=== PATIENT | male | born 1940 | race Caucasian/White ===

== ENCOUNTER 2017-01-09 08:40 | Inpatient (IN) | payer MEDICARE, MEDICAID ==
[2017-01-09 09:02] VITALS: BMI 36.3
--- NOTE | 2017-01-09 09:06 | C.PDOC ---
History Of Present Illness 76 yr old male brought in via BLS, presents to the ER intubated for respiratory distress. According to the EMS, patient was found his neighbor on the ground in respiratory distress and minimally responsive. EMS states patient had a gaze and right sided deficit. ROS unavailable due to intubation. Time Seen by Provider: 01/09/17 08:40 Chief Complaint (Nursing): Weakness/Neurological Deficit History Per: EMS History/Exam Limitations: other (Intubated) Onset/Duration Of Symptoms: Unknown Current Symptoms Are (Timing): Still Present Past Medical History Reviewed: Historical Data, Nursing Documentation, Vital Signs Vital Signs: Last Vital Signs Temp 98.5 F 01/09/17 10:20 Pulse 92 H 01/09/17 12:00 Resp 20 01/09/17 12:00 BP 104/66 01/09/17 11:43 Pulse Ox 100 01/09/17 12:00 - Catch Resources Procedures CATARAC PHACOEMULS/ASPIR (09/08/13) INSERT LENS AT CATAR EXT (09/08/13) PTERYGIUM EXCISION NEC (09/08/13) Family History: States: No Known Family Hx Review Of Systems Review Of Systems: ROS cannot be obtained secondary to pt's inabilty to answer questions. Physical Exam - Physical Exam Appears: Non-toxic Skin: Warm, Dry Head: Atraumatic, Normacephalic Eye(s): bilateral: Other (Pin point pupils. Non reactive. ) Throat: Other (Can not be assessed) Chest: Symmetrical, No Tenderness Cardiovascular: Rhythm Regular, No Murmur Respiratory: Normal Breath Sounds, No Rales, No Wheezing, Other (On ventilation ) Gastrointestinal/Abdominal: Bowel Sounds, Soft Extremity: No Deformity, Other ((+) Lower extremity edema, 1+) Neurological/Psych: No Response To Commands ED Course And Treatment - Laboratory Results Result Diagrams: 01/09/17 09:12 01/09/17 09:12 ECG: Interpreted By Me, Viewed By Me ECG Rhythm: Atrial Fibrillation ECG Interpretation: Abnormal Interpretation Of ECG: Atrial fibrillation with rapid ventricular response with premature ventricular. Left axis deviation. ST & T wave abnormality Rate From EC (BPM) O2 Sat by Pulse Oximetry: 100 (On ventilation) - Radiology CXR: Interpreted by Me, Viewed By Me CXR Interpretation: Yes: Cardiomegaly, Other (Calcified aortic valve. Chronic interstitial/pulmonary edema bilateral.) - CT Scan/US CT - Head Other Rad Studies (CT/US): Read By Radiologist, Radiology Report Reviewed CT/US Interpretation: PROCEDURE: CT HEAD WITHOUT CONTRAST. HISTORY: Code Stroke. COMPARISON: None available. TECHNIQUE: Axial computed tomography images were obtained through the head/brain without intravenous contrast. Radiation dose: Total exam DLP = 936 mGy-cm. This CT exam was performed using one or more of the following dose reduction techniques: Automated exposure control, adjustment of the mA and/or kV according to patient size, and/or use of iterative reconstruction technique. FINDINGS: HEMORRHAGE: Large 4.0 x 2.5 centimeter focus of acute intracranial hemorrhage seen centered within the left basal ganglia extending into the external capsule and insular region as well as superiorly and inferiorly at that level. Suggestion of minimal mass effect on the left lateral ventricle. No significant [id number] midline shift at this juncture. BRAIN: Scattered focal lucencies in the subcortical and periventricular white matter suggestive for chronic microvascular ischemic change. VENTRICLES: As above. CALVARIUM: Unremarkable. PARANASAL SINUSES: Mild mucosal thickening of the bilateral maxillary sinuses. MASTOID AIR CELLS: Unremarkable as visualized. No inflammatory changes. OTHER FINDINGS: Soft tissue swelling/contusion overlying the posterior right parietal cranium. IMPRESSION: Large 4.0 x 2.5 centimeter focus of acute intracranial hemorrhage seen centered within the left basal ganglia extending into the external capsule and insular region as well as superiorly and inferiorly at that level. Suggestion of minimal mass effect on the left lateral ventricle. No significant [id number] midline shift at this juncture. Scattered focal lucencies in the subcortical and periventricular white matter suggestive for chronic microvascular ischemic change. These findings were relayed to Dr. Shoaib Michael at 9:12 a.m. on 01/09/2017. Critical Care Time - Critical Care Note Total Time (in mins): 60 Documented critical care: time excludes all time spent performing seperately billable procedures. Medical Decision Making Medical Decision Making: PLAN: * CT - Head * CXR * EKG * Troponin * ABG * CBC * Urinalysis * Profofol IV * Cardene IV PROGRESS: * 0840 - Patient arrived to the ED intubated. * 0846 - BP: 210/125. HR: 110. RECTAL TEMP: 99.4. * 0850 - Code Stroke was called overhead. * 0853 - Patient went up for CAT scan. * 0918 - BP: 215/122. * 0920 - Spoke to Neurosurgeon Dr. Palmer regarding the patient who states no intervention from surgery needed for the case. * 0922 - Spoke to Neurologist Dr. Segura regarding the patient. Agrees with the current plan. * 0954 - BP: 127/85. HR: 104. * 1010 - Patient went up to ICU. NOTE: * Patient was found 0816 by the EMS. * Spoke to the settlement technician Dr. Arnaldo Demarco and Dr. Tam Xiong regarding the patient. Disposition - Disposition Disposition Time: 09:30 Condition: CRITICAL - Clinical Impression Clinical Impression: Intraparenchymal hemorrhage of brain - Scribe Statement The provider has reviewed the documentation as recorded by the [place] Provider Attestation: All medical record entries made by the [place] were at my direction and personally dictated by me. I have reviewed the chart and agree that the record accurately reflects my personal performance of the history, physical exam, medical decision making, and the department course for this patient. I have also personally directed, reviewed, and agree with the discharge instructions and disposition.
[2017-01-09 09:19] LABS: BASO # 0.1 K/uL (0.0-0.2); EOS % 0.1 % (0.0-4.0); HEMATOCRIT 39.8 % (35.0-51.0); LYMPH # 0.6 K/uL (1.0-4.3); LYMPH % 4.1 % (20.0-40.0); MEAN CELL VOLUME 89.2 fL (80.0-94.0); MEAN CORPUSCULAR HEMOGLOBIN 28.1 pg (27.0-31.0); MEAN CORPUSCULAR HGB CONC 31.5 g/dL (33.0-37.0); MEAN PLATELET VOLUME 9.9 fL (7.2-11.7); MONO # 1.2 K/uL (0.0-0.8); MONO % 8.4 % (0.0-10.0); PLATELET COUNT 193 K/uL (130-400); RED CELL DISTRIBUTION WIDTH 14.2 % (11.5-14.5); WHITE BLOOD COUNT 14.5 K/uL (4.8-10.8)
--- NOTE | 2017-01-09 09:21 | CT ---
PROCEDURE: CT HEAD WITHOUT CONTRAST. HISTORY: Code Stroke COMPARISON: None available. TECHNIQUE: Axial computed tomography images were obtained through the head/brain without intravenous contrast. Radiation dose: Total exam DLP = 936 mGy-cm. This CT exam was performed using one or more of the following dose reduction techniques: Automated exposure control, adjustment of the mA and/or kV according to patient size, and/or use of iterative reconstruction technique. FINDINGS: HEMORRHAGE: Large 4.0 x 2.5 centimeter focus of acute intracranial hemorrhage seen centered within the left basal ganglia extending into the external capsule and insular region as well as superiorly and inferiorly at that level. Suggestion of minimal mass effect on the left lateral ventricle. No significant [id number] midline shift at this juncture. BRAIN: Scattered focal lucencies in the subcortical and periventricular white matter suggestive for chronic microvascular ischemic change. VENTRICLES: As above. CALVARIUM: Unremarkable. PARANASAL SINUSES: Mild mucosal thickening of the bilateral maxillary sinuses. MASTOID AIR CELLS: Unremarkable as visualized. No inflammatory changes. OTHER FINDINGS: Soft tissue swelling/contusion overlying the posterior right parietal cranium. IMPRESSION: Large 4.0 x 2.5 centimeter focus of acute intracranial hemorrhage seen centered within the left basal ganglia extending into the external capsule and insular region as well as superiorly and inferiorly at that level. Suggestion of minimal mass effect on the left lateral ventricle. No significant [id number]-[id number] midline shift at this juncture. Scattered focal lucencies in the subcortical and periventricular white matter suggestive for chronic microvascular ischemic change. These findings were relayed to Dr. Shoaib Michael at 9:12 a.m. on 01/09/2017.
[2017-01-09] MEDS ORDERED: Propofol 10 mg/ml Inj (100 ml) IV SCH ×2 (09:30→10:00)
[2017-01-09 09:35] LABS: ABG ALLEN TEST POS; ABG MECHANICAL RATE 16; DRAW SITE RRA
[2017-01-09 09:37] LABS: CHLORIDE 101 mmol/L (98-107); POTASSIUM 3.6 mmol/L (3.6-5.2); SODIUM 139 mmol/L (132-148)
[2017-01-09 09:39] LABS: BILIRUBIN,TOTAL 0.9 mg/dL (0.2-1.3); CARBON DIOXIDE 22 mmol/L (22-30); CHOLESTEROL 140 mg/dL (0-199); GFR AFRICAN-AMERICAN > 60
[2017-01-09 09:40] LABS: ALB/GLOB RATIO 1.1 (1.0-2.1); ALKALINE PHOSPHATASE 102 U/L (38-126); ALT/SGPT 19 U/L (21-72); AST/SGOT 39 U/L (17-59); BLOOD UREA NITROGEN 14 mg/dL (9-20); CALCIUM 9.1 mg/dl (8.6-10.4); GLUCOSE,RANDOM 125 mg/dL (75-110); TOTAL PROTEIN 7.7 g/dL (6.3-8.3)
[2017-01-09 09:42] LABS: INR 1.1
[2017-01-09 09:45] LABS: LARGE PLATELETS PRESENT; NEUTROPHIL 88 % (50-75); TOTAL CELLS COUNTED 100
[2017-01-09] MEDS: niCARdipine IV 25 MG in Sodium Chloride 0.9% 240 ML IV SCH ×3 (10:09→19:58)
[2017-01-09 10:41] LABS: URINE BACTERIA RARE (<OCC); URINE BILIRUBIN NEGATIVE (NEGATIVE); URINE BLOOD 2+ (NEGATIVE); URINE COLOR Straw (YELLOW); URINE GLUCOSE (UA) NORMAL (Normal); URINE KETONE NEGATIVE (NEGATIVE); URINE LEUKOCYTE ESTERASE NEG Leu/uL (Negative); URINE PROTEIN 2+ mg/dL (NEGATIVE); URINE UROBILINOGEN NORMAL mg/dL (0.2-1.0); WBC URINE 2 /hpf (0-5)
[2017-01-09] MEDS ORDERED: Propofol 10 mg/ml Inj (20 ML) IV STA (10:42)
[2017-01-09 10:46] LABS: RBC URINE 3 /hpf (0-3)
--- NOTE | 2017-01-09 10:56 | CP.PCM.CON ---
History of Present Illness - History of Present Illness History of Present Illness: Mr. Duffy is a 76-year-old man with a past medical history of atrial fibrillation (on Xarelto), who was last known well last night, but found this morning by his neighbor with right side weakness and respiratory distress. EMS was called and the patient was intubated in the field. CT of the head was done in the ED and showed a moderate sized left basal ganglia intraparenchymal hemorrhage. The patient was sedated and intubated when I examined him, and he could not provide any more history. However, some information was obtained from the chart, EMS and nursing. There were no family members present or listed on file. Review of Systems - Review of Systems All systems: reviewed and no additional remarkable complaints except Past Patient History - Past Social History Smoking Status: Unknown If Ever Smoked - PSYCHIATRIC Hx Substance Use: No Meds Allergies/Adverse Reactions: Allergies Allergy/AdvReac Type Severity Reaction Status Date / Time No Known Allergies Allergy Verified 08/11/13 08:26 - Medications Medications: Current Medications Nicardipine HCl 25 mg/ Sodium (Chloride) 250 mls @ 50 mls/hr IV .Q5H HERMILO; 5 MG/ HR PRN Reason: Protocol Last Admin: 01/09/17 10:09 Dose: Not Given Propofol (Diprivan) 100 mls @ 3.06 mls/hr IV .Q24H PRN; Protocol; 5 MCG/KG/MIN PRN Reason: TITRATE PER MD ORDER Last Admin: 01/09/17 10:50 Dose: 3.06 mls/hr Physical Exam - Constitutional Appears: In Acute Distress Additional comments: Intubated, sedated, breathing on his own. - Eye Exam Eye Exam: Conjunctival injection Pupil Exam: Miosis - ENT Exam ENT Exam: Normal Exam - Neck Exam Neck exam: Positive for: Normal Inspection - Respiratory Exam Respiratory Exam: Decreased Breath Sounds, Respiratory Distress - Cardiovascular Exam Cardiovascular Exam: Irregular Rhythm, +S1, +S2 - Neurological Exam Additional comments: Brainstem reflexes are intact with sluggishly responsive pupils after sedation. Right side hemiplegic, but moves the left side to pain. Upgoing plantar response on the right, and downgoing on the left. Reflexes are brisk on the right and muted on the left. - Skin Skin Exam: Dry, Intact, Normal Color, Warm Results - Vital Signs Recent Vital Signs: Last Vital Signs Temp 99.4 F 01/09/17 08:40 Pulse 112 H 01/09/17 08:40 Resp 20 01/09/17 08:40 BP 210/125 H 01/09/17 08:40 Pulse Ox 100 01/09/17 08:40 - Labs Result Diagrams: 01/09/17 09:12 01/09/17 09:12 Labs: Laboratory Results - last 24 hr 01/09/17 10:04 Urine Color Straw Urine Clarity Clear Urine pH 5.0 Ur Specific [place] 1.006 Urine Protein 2+ H Urine Glucose (UA) Normal Urine Ketones Negative Urine Blood 2+ H Urine Nitrate Negative Urine Bilirubin Negative Urine Urobilinogen Normal Ur Leukocyte Esterase Neg Urine WBC (Auto) 2 Urine RBC (Auto) 3 Ur Squamous Epith Cells < 1 Urine Bacteria Rare - Imaging and Cardiology CT scan - head Status: Image reviewed by me, Report reviewed by me (left basal ganglia intraparenchymal hemorrhage without significant edema or midline shift.) Assessment & Plan (1) Intraparenchymal hemorrhage of brain Assessment and Plan: Likely hypertensive in etiology with worsening due to being on anticoagulation. I recommend the followin. Start cardene drip to maintain SBP between 110 and 160 mm Hg; 2. PCC to decrease bleeding; 3. Maintain head of bed above 30 degrees; 4. Neurosurgical consultation; 5. Repeat CT head in 6 hours; 6. Follow serum sodium and electrolytes every 12 hours; 7. MRI brain when stable; 8. Echocardiogram; 9. DVT Px. Status: Acute
--- NOTE | 2017-01-09 11:32 | RAD ---
HISTORY: patient intubated COMPARISON: No prior. FINDINGS: LUNGS: Endotracheal tube extending into the mid thoracic trachea. Moderate venous congestion. Patchy consolidative changes in the left suprahilar region and lung bases. PLEURA: As above. CARDIOVASCULAR: Cardiomegaly. Calcification at the aortic knob. OSSEOUS STRUCTURES: No significant abnormalities. VISUALIZED UPPER ABDOMEN: Normal. OTHER FINDINGS: None. IMPRESSION: Endotracheal tube extending into the mid thoracic trachea. Moderate venous congestion. Patchy consolidative changes in the left suprahilar region and lung bases.
--- NOTE | 2017-01-09 11:37 | CP.PCM.CON ---
<Damaso Ng - Last Filed: 01/09/17 15:08> History of Present Illness - History of Present Illness History of Present Illness: PGY-1 consult note for hogshead filler, Dr. Demarco Patient is a 76 year old male of [place] descent, with PMHx of atrial fibrillation (for which he takes Xarelto) and cataracts, who was brought to ED via BLS for respiratory distress and new onset of weakness on right side. Per EMS patient was found by a neighbor in respiratory distress and right sided weakness. Last known time pt was without symptoms was last night. EMS intubated in the field. Their report states 'patient had a gaze and right sided deficit.' CODE STROKE was initiated at time of arrival in the ED and CT head showed left basal ganglia hemorrhage. Neurologist, Dr. Segura, was notified and made recommendations regarding BP control, and repeat CT. Neurosurgeon, Dr. Palmer, indicated there was no role for him at this time. Pt is intubated and sedated and unable to provide ROS at this time. No family at bedside, thus patient's history was culled from EMR, EMS, and nursing. PMD: unknown PMHx: afib PSHx: Pterygium excision, cataracts (2012) SHx: unknown smoking/alcohol/illicit drug history FHx: unknown Allergies: NKA Review of Systems - Review of Systems Systems not reviewed;Unavailable: Altered Mental Status, Intubated Past Patient History - Past Social History Smoking Status: Unknown If Ever Smoked - MUSCULOSKELETAL/RHEUMATOLOGICAL Hx Falls: Yes - PSYCHIATRIC Hx Substance Use: No Meds Allergies/Adverse Reactions: Allergies Allergy/AdvReac Type Severity Reaction Status Date / Time No Known Allergies Allergy Verified 08/11/13 08:26 - Medications Medications: Current Medications Nicardipine HCl 25 mg/ Sodium (Chloride) 250 mls @ 50 mls/hr IV .Q5H HERMILO; 5 MG/ HR PRN Reason: Protocol Last Admin: 01/09/17 10:09 Dose: Not Given Propofol (Diprivan) 100 mls @ 3.06 mls/hr IV .Q24H PRN; Protocol; 5 MCG/KG/MIN PRN Reason: TITRATE PER MD ORDER Last Titration: 01/09/17 09:20 Dose: 10 mcg/kg/min Pneumococcal Polyvalent Vaccine (Pneumovax 23 Vaccine) 0.5 ml IM .ONCE ONE Stop: 01/11/17 11:06 Physical Exam - Head Exam Head Exam: ATRAUMATIC, NORMAL INSPECTION, NORMOCEPHALIC - Eye Exam Eye Exam: Conjunctival injection Pupil Exam: Fixed, Miosis - ENT Exam ENT Exam: Mucous Membranes Moist Additional comments: [place] tinged, thick endotracheal suction - Neck Exam Neck exam: Positive for: Normal Inspection Additional comments: no bruit appreciated - Respiratory Exam Respiratory Exam: Rhonchi Additional comments: on ventilation - Cardiovascular Exam Cardiovascular Exam: Irregular Rhythm, +S1, +S2. absent: Systolic Murmur - GI/Abdominal Exam GI & Abdominal Exam: Normal Bowel Sounds, Soft - Exam Additional comments: sanchez catheter in place - Extremities Exam Extremities exam: Positive for: pedal edema (1+ LE edema). Negative for: normal inspection Additional comments: Pt intubated and sedated. Not following commands at this time. Pt witnessed moving all extremities. Toes curled on both sides. - RUE weakness appreciated on flex/ext test - Back Exam Back exam: NORMAL INSPECTION - Neurological Exam Neurological exam: Alert, Oriented x3 - Skin Skin Exam: Normal Color, Warm Results - Vital Signs Recent Vital Signs: Last Vital Signs Temp 99.4 F 01/09/17 08:40 Pulse 112 H 01/09/17 08:40 Resp 23 01/09/17 10:50 BP 210/125 H 01/09/17 08:40 Pulse Ox 100 01/09/17 10:50 - Labs Result Diagrams: 01/09/17 09:12 01/09/17 09:12 Labs: Laboratory Results - last 24 hr 01/09/17 10:04 Urine Color Straw Urine Clarity Clear Urine pH 5.0 Ur Specific [place] 1.006 Urine Protein 2+ H Urine Glucose (UA) Normal Urine Ketones Negative Urine Blood 2+ H Urine Nitrate Negative Urine Bilirubin Negative Urine Urobilinogen Normal Ur Leukocyte Esterase Neg Urine WBC (Auto) 2 Urine RBC (Auto) 3 Ur Squamous Epith Cells < 1 Urine Bacteria Rare Assessment & Plan - Assessment and Plan (Free Text) Assessment: 76 year old male of [place] descent, with PMHx of afib (on xarelto), presenting with new onset weakness and respiratory distress. Pt intubated. CT scan shows left basal intraparenchymal bleed. Plan: Neuro: Pt intubated and sedated - Propofol ip CT Head (01/09/17): Left intraparenchymal hemorrhage without midline shift (see full report) - f/u repeat @ 1500 New onset weakness of right side Last time well was last night per neighbor Dr Segura, Neurology, consulted: help appreciated - Cardene drip to maintain SBP b/w 110-160 - PCC (Kcentra) to decrease bleeding on NOAC - head of bed to 30 degrees - f/u serum Na/electrolytes q12h - MRI/ECHO when stable Dr. Palmer, Neurosurgery, consulted: help appreciated - No intervention at this time Endo: Hgb A1c: 6.5 Accuchecks ACHS ISS - low CV: Hx of atrial fibrillation - EKG on presentation: Afib w. RVR (rate 108). Left axis deviation. - Hold Home med Xarelto 20mg Daily BP parameters (per Neurology reccs) - Systolic 110-160 - Cardene 25mg titrated for BP control Troponin negative x 1 f/u Digoxin level Home meds: - Digoxin 0.125 mg PO daily, Diltiazem 240mg PO Daily, Lasix 40mg PO daily Pulm: Pt intubated, breathing on own ABG: ph 7.27, pCO2 60, HCO3 24.5, Lactate 2.1 CXR (01/09): ETT extending into mid thoracic trachea. Moderate venous congestion. Patchy consolidative changes in left suprahilar region and lung bases (see full report) f/u procalcitonin GI: Intubated f/u swallow eval f/u Dietary reccs LFTs WNL : UA: 2+ protein, 2+ blood, negative LE, nitrate, ketones, bacteria rare, Sq Epithelial < 1 BUN/Cr WNL sanchez catheter in place Monitor I/Os ID: Leukocytosis - WBC 14.5, with left shift - Lactate 2.1 f/u procalcitonin f/u MRSA screen Hem/Onc: On home Xarelto - recommendation of neurology for PCC - Kcentra IV ONCE Leukocytosis 14.5 Mskltl: PT/OT eval Prophylaxis: DVT: SCDs VTE: contraindicated due to active BG bleed GI: Protonix IV <Arnaldo Demarco - Last Filed: 01/09/17 17:28> Meds - Medications Medications: Current Medications Nicardipine HCl 25 mg/ Sodium (Chloride) 250 mls @ 50 mls/hr IV .Q5H HERMILO; 5 MG/ HR PRN Reason: Protocol Last Admin: 01/09/17 14:48 Dose: Not Given Propofol (Diprivan) 100 mls @ 3.06 mls/hr IV .Q24H PRN; Protocol; 5 MCG/KG/MIN PRN Reason: TITRATE PER MD ORDER Last Admin: 01/09/17 12:05 Dose: 10 mls/hr Sodium Chloride (Sodium Chloride 0.9%) 1,000 mls @ 100 mls/hr IV .Q10H HERMILO Last Admin: 01/09/17 16:28 Dose: 100 mls/hr Insulin Human Regular (Novolin R) 0 unit SC Q6H HERMILO PRN Reason: Protocol Pantoprazole Sodium (Protonix Inj) 40 mg IVP DAILY HERMILO Last Admin: 01/09/17 13:34 Dose: 40 mg Pneumococcal Polyvalent Vaccine (Pneumovax 23 Vaccine) 0.5 ml IM .ONCE ONE Stop: 01/11/17 11:06 Results - Vital Signs Recent Vital Signs: Last Vital Signs Temp 97 F L 01/09/17 16:00 Pulse 80 01/09/17 16:00 Resp 16 01/09/17 16:00 BP 134/81 01/09/17 15:40 Pulse Ox 100 01/09/17 16:00 - Labs Result Diagrams: 01/09/17 09:12 01/09/17 09:12 Labs: Laboratory Results - last 24 hr 01/09/17 01/09/17 10:04 11:35 POC Glucose (mg/dL) 112 H Urine Color Straw Urine Clarity Clear Urine pH 5.0 Ur Specific [place] 1.006 Urine Protein 2+ H Urine Glucose (UA) Normal Urine Ketones Negative Urine Blood 2+ H Urine Nitrate Negative Urine Bilirubin Negative Urine Urobilinogen Normal Ur Leukocyte Esterase Neg Urine WBC (Auto) 2 Urine RBC (Auto) 3 Ur Squamous Epith Cells < 1 Urine Bacteria Rare Attending/Attestation - Attestation I have personally seen and examined this patient.: Yes I have fully participated in the care of the patient.: Yes I have reviewed all pertinent clinical information: Yes Notes (Text): 01/09/17 17:21 I have seen and examined the patient. Medical records, lab studies, and imaging were reviewed by me and a management plan was formulated on multidisciplinary rounds with resident Dr. Ng. I agree with their above documented assessment and plan. Patient was intubated for airway protection. Patient has left basal ganglia bleed, will monitor for increase, repeat head ct 6 hours. Control SBP 120-160. Patient's Xarelto coagulopathy reversed with PCC. Critical Care Time 35 minutes. Multi-disciplinary rounds were performed with house staff, nursing, speech therapy, respiratory therapy, pharmacy and nutrition with integrated input from the primary team/attending and other consulting services. The documented time is cumulative and includes review of patient data/exams/labs/chart review and examination of the patient on rounds and throughout the day; time is exclusive of any procedures or teaching time.
[2017-01-09] MEDS ORDERED: Hum Prothrombin CPLX(PCC)4FACT 1 Unit Inj IV ONE ×6 (13:00→14:30)
[2017-01-09] MEDS: Sodium Chloride 0.9% 1,000 ML IV SCH (16:28)
[2017-01-09] MEDS ORDERED: (Novolin R) Insulin Human Regular 100 units/ml vial SC SCH (16:30)
--- NOTE | 2017-01-09 17:02 | CT ---
PROCEDURE: CT HEAD WITHOUT CONTRAST. HISTORY: follow ICH COMPARISON: 01/09/2017 TECHNIQUE: Axial computed tomography images were obtained through the head/brain without intravenous contrast. Radiation dose: Total exam DLP = 1233 mGy-cm. This CT exam was performed using one or more of the following dose reduction techniques: Automated exposure control, adjustment of the mA and/or kV according to patient size, and/or use of iterative reconstruction technique. FINDINGS: HEMORRHAGE: The acute hemorrhage in the left thalamus and basal ganglia is stable in appearance. This measures 4 cm in length by 2.2 cm in maximal thickness. There is a small amount of edema sore in the hemorrhage. There is no extension into the ventricular system. There is no significant mass effect or midline shift BRAIN: As above VENTRICLES: Unremarkable. No hydrocephalus. CALVARIUM: Unremarkable. PARANASAL SINUSES: Unremarkable as visualized. No significant inflammatory changes. MASTOID AIR CELLS: Unremarkable as visualized. No inflammatory changes. OTHER FINDINGS: None. IMPRESSION: Stable appearance of acute hemorrhage in the left thalamus and basal ganglia
[2017-01-09] MEDS: (Novolin R) Insulin Human Regular 100 units/ml vial SC SCH (19:12)
[2017-01-09 19:34] LABS: CHLORIDE 100 mmol/L (98-107); POTASSIUM 3.6 mmol/L (3.6-5.2); SODIUM 138 mmol/L (132-148)
[2017-01-09 19:37] LABS: CARBON DIOXIDE 30 mmol/L (22-30); GFR AFRICAN-AMERICAN > 60
[2017-01-09 19:38] LABS: BLOOD UREA NITROGEN 17 mg/dL (9-20); CALCIUM 8.6 mg/dl (8.6-10.4); GLUCOSE,RANDOM 99 mg/dL (75-110)
[2017-01-10] MEDS: (Novolin R) Insulin Human Regular 100 units/ml vial SC SCH ×5 (00:45→23:51)
[2017-01-10] MEDS: Sodium Chloride 0.9% 1,000 ML IV SCH ×5 (00:45→20:00)
[2017-01-10] MEDS: niCARdipine IV 25 MG in Sodium Chloride 0.9% 240 ML IV SCH ×5 (00:45→20:00)
[2017-01-10] MEDS ORDERED: Acetaminophen 650mg/20.3ml solution UD PO STA (05:27)
[2017-01-10 05:40] LABS: ABG ALLEN TEST POS; ABG MECHANICAL RATE 16; ARTERIAL BLOOD HGB O2 SAT 95.2 % (95.0-98.0); ATERIAL BLOOD GAS PEEP 0; CARBOXYHEMOGLOBIN 1.7 % (0.5-1.5); DRAW SITE RR; HHB 1.8 % (0.0-5.0); METHEMOGLOBIN 1.2 % (0.0-3.0)
[2017-01-10 06:38] LABS: BASO # 0.1 K/uL (0.0-0.2); BASO % 0.7 % (0.0-2.0); EOS # 0.1 K/uL (0.0-0.7); EOS % 0.5 % (0.0-4.0); HEMATOCRIT 36.5 % (35.0-51.0); LYMPH # 0.5 K/uL (1.0-4.3); MEAN CELL VOLUME 88.5 fL (80.0-94.0); MEAN CORPUSCULAR HEMOGLOBIN 28.2 pg (27.0-31.0); MEAN CORPUSCULAR HGB CONC 31.9 g/dL (33.0-37.0); MEAN PLATELET VOLUME 10.2 fL (7.2-11.7); MONO # 1.1 K/uL (0.0-0.8); MONO % 8.6 % (0.0-10.0); NRBC % 0.1 % (0.0-2.0); PLATELET COUNT 169 K/uL (130-400); RED CELL DISTRIBUTION WIDTH 13.9 % (11.5-14.5); WHITE BLOOD COUNT 12.8 K/uL (4.8-10.8)
[2017-01-10 06:52] LABS: CHLORIDE 102 mmol/L (98-107); SODIUM 139 mmol/L (132-148)
[2017-01-10 06:53] LABS: POTASSIUM 3.9 mmol/L (3.6-5.2)
[2017-01-10 06:54] LABS: GFR AFRICAN-AMERICAN > 60
[2017-01-10 06:55] LABS: ALKALINE PHOSPHATASE 83 U/L (38-126); ALT/SGPT 27 U/L (21-72); AST/SGOT 33 U/L (17-59); BILIRUBIN,TOTAL 0.8 mg/dL (0.2-1.3); BLOOD UREA NITROGEN 19 mg/dL (9-20); CALCIUM 8.9 mg/dl (8.6-10.4); CARBON DIOXIDE 26 mmol/L (22-30); GLUCOSE,RANDOM 121 mg/dL (75-110); PHOSPHOROUS 2.7 mg/dL (2.5-4.5); TOTAL PROTEIN 6.7 g/dL (6.3-8.3)
[2017-01-10 06:56] LABS: MAGNESIUM 2.2 mg/dL (1.6-2.3)
[2017-01-10 08:20] LABS: EOSINOPHIL 1 % (0-4); NEUTROPHIL 84 % (50-75); TOTAL CELLS COUNTED 100
[2017-01-10 08:21] LABS: LARGE PLATELETS PRESENT
--- NOTE | 2017-01-10 09:28 | HP ---
The patient is a 76-year-old male brought to the hospital ____noticed the patient unconscious. The p atient came to the Emergency Room comatose. ____ pupils. The patient intubated with mechanical vent ilator ____ history of a large cerebral bleed. On admission ____, the patient's blood pressure was elevated 200/120. The patient cannot give any history. There is no family available to give any his tory. PHYSICAL EXAMINATION: GENERAL: The patient is comatose ____. VITAL SIGNS: ____. HEENT: ____. Pupils ____ nonreactive. NECK: Carotid ____ feels weak. CHEST: Symmetrical. HEART: Regular. ABDOMEN: Soft. EXTREMITIES: No edema. The patient suffers from cerebral bleed and hypertension. The patient will be admitted to ICU ____ b lood pressure is aggravated. The patient will need neurology consult. Neurosurgery was contacted an d said patient is not a surgical candidate. Poor prognosis. Tam Koroma MD cc: [id number] TT: 01/09/2017 10:49:25 mn
--- NOTE | 2017-01-10 09:32 | RAD ---
HISTORY: intubated COMPARISON: 01/09/2017 FINDINGS: LUNGS: Interval placement of a nasogastric tube with distal tip not well visualized. Other lines and tubes in stable position. Moderate venous congestion with bilateral hilar prominence. Bibasilar airspace opacities with bilateral pleural effusions. PLEURA: As above. CARDIOVASCULAR: Cardiomegaly. Calcification at the aortic knob. OSSEOUS STRUCTURES: No significant abnormalities. VISUALIZED UPPER ABDOMEN: Normal. OTHER FINDINGS: None. IMPRESSION: Interval placement of a nasogastric tube with distal tip not well visualized. Other lines and tubes in stable position. Moderate venous congestion with bilateral hilar prominence. Bibasilar airspace opacities with bilateral pleural effusions.
[2017-01-10 10:57] LABS: ABG ALLEN TEST POS; ABG MECHANICAL RATE 16; ARTERIAL BLOOD HGB O2 SAT 96.7 % (95.0-98.0); ATERIAL BLOOD GAS PEEP 5; CARBOXYHEMOGLOBIN 1.3 % (0.5-1.5); DRAW SITE RR; HHB 0.6 % (0.0-5.0); METHEMOGLOBIN 1.4 % (0.0-3.0)
--- NOTE | 2017-01-10 11:42 | CP.PCM.PN ---
Subjective - Date & Time of Evaluation Date of Evaluation: 01/10/17 Time of Evaluation: 10:30 - Subjective Subjective: Mr. Duffy was seen and examined today in the ICU. He is still intubated, but breathing well on his own and very active with movements. He appears to be quite agitated and resisting the ventilator at times. There were no acute events overnight. Objective - Vital Signs/Intake and Output Vital Signs (last 24 hours): Temp Pulse Resp BP Pulse Ox 99.3 F 118 H 33 H 137/106 H 98 01/10/17 07:47 01/10/17 11:02 01/10/17 11:02 01/10/17 11:02 01/10/17 11:02 Intake and Output: 01/10/17 01/10/17 06:59 18:59 Intake Total 1311.9 574.9 Output Total 0 795 Balance 1311.9 -220.1 - Medications Medications: Current Medications Nicardipine HCl 25 mg/ Sodium (Chloride) 250 mls @ 50 mls/hr IV .Q5H HERMILO; 5 MG/ HR PRN Reason: Protocol Last Titration: 01/10/17 11:25 Dose: 5 mg/hr Propofol (Diprivan) 100 mls @ 3.06 mls/hr IV .Q24H PRN; Protocol; 5 MCG/KG/MIN PRN Reason: TITRATE PER MD ORDER Last Titration: 01/10/17 09:24 Dose: 0 mcg/kg/min Sodium Chloride (Sodium Chloride 0.9%) 1,000 mls @ 100 mls/hr IV .Q10H HERMILO Last Admin: 01/10/17 04:05 Dose: 100 mls/hr Insulin Human Regular (Novolin R) 0 unit SC Q6H HERMILO PRN Reason: Protocol Last Admin: 01/10/17 06:29 Dose: Not Given Pantoprazole Sodium (Protonix Inj) 40 mg IVP DAILY HERMILO Last Admin: 01/10/17 09:26 Dose: 40 mg Pneumococcal Polyvalent Vaccine (Pneumovax 23 Vaccine) 0.5 ml IM .ONCE ONE Stop: 01/11/17 11:06 - Labs Labs: 01/10/17 06:29 01/10/17 06:29 PT 12.3 SECONDS (9.7-12.2) H 04/13/17 09:29 INR 1.1 01/09/17 09:29 APTT 31 SECONDS (21-34) 01/09/17 09:29 - Constitutional Appears: Agitated, Confused - Head Exam Head Exam: ATRAUMATIC, NORMAL INSPECTION, NORMOCEPHALIC - Eye Exam Eye Exam: EOMI, Normal appearance, PERRL - Respiratory Exam Respiratory Exam: Respiratory Distress Additional comments: Intubated, off sedation. - GI/Abdominal Exam GI & Abdominal Exam: Soft, Normal Bowel Sounds. absent: Tenderness - Neurological Exam Additional comments: Intubated, follows simple commands, moves the left side normally and has some movement of the RLE, but no movement of the RUE. He was difficult to examine due to a likely receptive aphasia and agitation due to the ventilator. Brainstem reflexes were all intact, he had a neglect of the right side. Assessment and Plan (1) Intraparenchymal hemorrhage of brain Assessment & Plan: Will repeat CT head today at 3PM to have a 24 hour follow-up. There is concern that the patient is at risk for ischemic stroke. We will consider starting aspirin if the CT continues to show good stability. The patient will likely be extubated today. Continue BP control, bed elevated to 30 degrees with aspiration precautions. I will continue following along with the primary team. Status: Acute
--- NOTE | 2017-01-10 12:00 | PN ---
DATE: 01/10/2017 The patient is on a ventilator. He is moving the left upper extremity. Seems to be somewhat more re sponsive than yesterday. At this point, continue sedation, continue support. Tam Koroma MD cc: [id number] TT: 01/10/2017 10:33:31 Confirmation # [id number] Dictation # [id number]
[2017-01-10] MEDS ORDERED: Digoxin 500 mcg/2ml (0.5 mg/2ml) Inj IVP ONE (12:35)
--- NOTE | 2017-01-10 12:40 | CP.CCUPN ---
<Damaso Ng - Last Filed: 01/10/17 12:41> CCU Subjective - Physician Review Subjective (Free Text): 01/10/17 12:39 Pt seen and examined at bedside. CCU Objective - Vital Signs / Intake & Output Vital Signs (Last 4 hours): Vital Signs Temp Pulse Resp BP Pulse Ox 01/10/17 12:14 110 H 19 100 01/10/17 12:00 100.3 F H 114 H 21 113/90 100 01/10/17 11:36 139 H 27 H 113/90 98 01/10/17 11:19 143 H 31 H 193/111 H 99 01/10/17 11:05 124 H 30 H 98 01/10/17 11:02 118 H 33 H 137/106 H 98 01/10/17 11:00 128 H 31 H 100 01/10/17 10:57 113 H 17 111/82 100 01/10/17 10:32 118 H 22 175/109 H 100 01/10/17 10:26 126 H 27 H 149/131 H 100 01/10/17 10:20 123 H 17 159/135 H 100 01/10/17 10:00 134 H 28 H 100 01/10/17 09:38 127 H 17 100 01/10/17 09:27 139/91 H 01/10/17 09:19 107 H 26 H 139/91 H 100 01/10/17 09:00 105 H 29 H 100 Intake and Output (Last 8hrs): Intake & Output 01/09/17 01/10/17 01/10/17 22:59 06:59 14:59 Intake Total 776.5 885.4 686.9 Output Total 150 1045 Balance 626.5 885.4 -358.1 Weight 218 lb 9 oz Intake: Intake, IV Amount 776.5 885.4 686.9 Right Antecubital 60 Left Antecubital 700 800 600 Left Antecubital Y Port 16.5 85.4 86.9 Oral 0 Output: Urine 150 1045 Urethral (Early) 150 1045 Other: # Voids Urethral (Early) 42 42 42 # Bowel Movements 0 - Physical Exam Physical Exam Limitations: Positive for: Altered Mental Status Head: Positive for: Atraumatic, Normocephalic Extroacular Muscles: Positive for: EOMI Conjunctiva: Positive for: Injected Mouth: Positive for: Dry Respiratory/Chest: Positive for: Respiratory Distress (pt intubated, off sedation) Cardiovascular: Positive for: Normal S1, S2, Irregular Rhythm Abdomen: Positive for: Normal Bowel Sounds Lower Extremity: Positive for: Normal Inspection, NORMAL PULSES - Medications Active Medications: Active Medications Generic Name Dose Route Start Last Admin Trade Name Freq PRN Reason Stop Dose Admin Digoxin 0.5 mg 01/10/17 12:35 Lanoxin IVP 01/10/17 12:36 ONCE ONE Digoxin 0.25 mg 01/10/17 19:00 Lanoxin IVP 01/11/17 01:01 Q6H HERMILO Nicardipine HCl 25 mg/ Sodium 250 mls @ 50 mls/hr 01/09/17 09:45 01/10/17 11:48 Chloride IV 2.5 mg/hr .Q5H HERMILO Titration Protocol 5 MG/HR Propofol 100 mls @ 3.06 mls/hr 01/09/17 10:28 01/10/17 09:24 Diprivan IV 0 mcg/kg/min .Q24H PRN Titration TITRATE PER MD ORDER Protocol 5 MCG/KG/MIN Sodium Chloride 1,000 mls @ 100 mls/hr 01/09/17 15:00 01/10/17 11:49 Sodium Chloride 0.9% IV Not Given .Q10H HERMILO Insulin Human Regular 0 unit 01/09/17 18:00 01/10/17 11:49 Novolin R SC Not Given Q6H [facility] Protocol Pantoprazole Sodium 40 mg 01/09/17 12:15 01/10/17 09:26 Protonix Inj IVP 40 mg DAILY HERMILO Administration Pneumococcal Polyvalent Vaccine 0.5 ml 01/11/17 11:05 Pneumovax 23 Vaccine IM 01/11/17 11:06 .ONCE ONE - Patient Studies Lab Studies: Microbiology Studies 01/09/17 10:42 MRSA Culture (Admit) - Final Nose MRSA NOT DETECTED Lab Studies 01/10/17 01/10/17 01/10/17 Range/Units 11:39 10:54 06:29 WBC 12.8 H (4.8-10.8) K/uL RBC 4.12 L (4.40-5.90) Mil/uL Hgb 11.6 L (12.0-18.0) g/dL Hct 36.5 (35.0-51.0) % MCV 88.5 (80.0-94.0) fL MCH 28.2 (27.0-31.0) pg MCHC 31.9 L (33.0-37.0) g/dL RDW 13.9 (11.5-14.5) % Plt Count 169 (130-400) K/uL MPV 10.2 (7.2-11.7) fL Neut % (Auto) 86.2 H (50.0-75.0) % Lymph % (Auto) 4.0 L (20.0-40.0) % Alexander % (Auto) 8.6 (0.0-10.0) % Eos % (Auto) 0.5 (0.0-4.0) % Baso % (Auto) 0.7 (0.0-2.0) % Neut # 11.0 H (1.8-7.0) K/uL Lymph # 0.5 L (1.0-4.3) K/uL Alexander # 1.1 H (0.0-0.8) K/uL Eos # 0.1 (0.0-0.7) K/uL Baso # 0.1 (0.0-0.2) K/uL Neutrophils % (Manual) 84 H (50-75) % Band Neutrophils % 2 (0-2) % Lymphocytes % (Manual) 5 L (20-40) % Monocytes % (Manual) 8 (0-10) % Eosinophils % (Manual) 1 (0-4) % Platelet Estimate Normal (NORMAL) Large Platelets Present Ovalocytes Slight Puncture Site Rr pCO2 47 H (35-45) mm/Hg pO2 230 H (80-100) mm/Hg HCO3 26.6 (21-28) mmol/L ABG pH 7.38 (7.35-7.45) ABG Total CO2 29.2 H (22-28) mmol/L ABG O2 Saturation 99.4 H (95-98) % ABG Base Excess 2.1 (-2.0-3.0) mmol/L ABG Hemoglobin 11.4 L (11.7-17.4) g/dL ABG Carboxyhemoglobin 1.3 (0.5-1.5) % POC ABG HHb (Measured) 0.6 (0.0-5.0) % ABG Methemoglobin 1.4 (0.0-3.0) % Mono Test Pos A-a O2 Difference 282.0 mm/Hg Respiratory Index 1.2 Hgb O2 Saturation 96.7 (95.0-98.0) % Mechanical Rate 16 FiO2 80.0 % Tidal Volume 500 PEEP 5 Sodium 139 (132-148) mmol/L Potassium 3.9 (3.6-5.2) mmol/L Chloride 102 (98-107) mmol/L Carbon Dioxide 26 (22-30) mmol/L Anion Gap 16 (10-20) BUN 19 (9-20) mg/dL Creatinine 1.2 (0.8-1.5) MG/DL Est GFR ( Amer) > 60 Est GFR (Non-Af Amer) 59 POC Glucose (mg/dL) 139 H (65-110) mg/dL Random Glucose 121 H (75-110) mg/dL Calcium 8.9 (8.6-10.4) mg/dl Phosphorus 2.7 (2.5-4.5) mg/dL Magnesium 2.2 (1.6-2.3) mg/dL Total Bilirubin 0.8 (0.2-1.3) mg/dL AST 33 (17-59) U/L ALT 27 (21-72) U/L Alkaline Phosphatase 83 (38-126) U/L Total Protein 6.7 (6.3-8.3) g/dL Albumin 3.4 L (3.5-5.0) g/dL Globulin 3.3 (2.2-3.9) gm/dL Albumin/Globulin Ratio 1.0 (1.0-2.1) Digoxin < 0.4 L (0.8-2.0) ng/mL 01/10/17 01/10/17 01/10/17 Range/Units 06:20 05:30 00:12 WBC (4.8-10.8) K/uL RBC (4.40-5.90) Mil/uL Hgb (12.0-18.0) g/dL Hct (35.0-51.0) % MCV (80.0-94.0) fL MCH (27.0-31.0) pg MCHC (33.0-37.0) g/dL RDW (11.5-14.5) % Plt Count (130-400) K/uL MPV (7.2-11.7) fL Neut % (Auto) (50.0-75.0) % Lymph % (Auto) (20.0-40.0) % Alexander % (Auto) (0.0-10.0) % Eos % (Auto) (0.0-4.0) % Baso % (Auto) (0.0-2.0) % Neut # (1.8-7.0) K/uL Lymph # (1.0-4.3) K/uL Alexander # (0.0-0.8) K/uL Eos # (0.0-0.7) K/uL Baso # (0.0-0.2) K/uL Neutrophils % (Manual) (50-75) % Band Neutrophils % (0-2) % Lymphocytes % (Manual) (20-40) % Monocytes % (Manual) (0-10) % Eosinophils % (Manual) (0-4) % Platelet Estimate (NORMAL) Large Platelets Ovalocytes Puncture Site Rr pCO2 53 H (35-45) mm/Hg pO2 84 (80-100) mm/Hg HCO3 27.1 (21-28) mmol/L ABG pH 7.35 (7.35-7.45) ABG Total CO2 30.9 H (22-28) mmol/L ABG O2 Saturation 98.1 H (95-98) % ABG Base Excess 2.8 (-2.0-3.0) mmol/L ABG Hemoglobin 11.2 L (11.7-17.4) g/dL ABG Carboxyhemoglobin 1.7 H (0.5-1.5) % POC ABG HHb (Measured) 1.8 (0.0-5.0) % ABG Methemoglobin 1.2 (0.0-3.0) % Mono Test Pos A-a O2 Difference 563.0 mm/Hg Respiratory Index 6.7 Hgb O2 Saturation 95.2 (95.0-98.0) % Mechanical Rate 16 FiO2 100.0 % Tidal Volume 500 PEEP 0 Sodium (132-148) mmol/L Potassium (3.6-5.2) mmol/L Chloride (98-107) mmol/L Carbon Dioxide (22-30) mmol/L Anion Gap (10-20) BUN (9-20) mg/dL Creatinine (0.8-1.5) MG/DL Est GFR ( Amer) Est GFR (Non-Af Amer) POC Glucose (mg/dL) 148 H 113 H (65-110) mg/dL Random Glucose (75-110) mg/dL Calcium (8.6-10.4) mg/dl Phosphorus (2.5-4.5) mg/dL Magnesium (1.6-2.3) mg/dL Total Bilirubin (0.2-1.3) mg/dL AST (17-59) U/L ALT (21-72) U/L Alkaline Phosphatase (38-126) U/L Total Protein (6.3-8.3) g/dL Albumin (3.5-5.0) g/dL Globulin (2.2-3.9) gm/dL Albumin/Globulin Ratio (1.0-2.1) Digoxin (0.8-2.0) ng/mL 01/09/17 01/09/17 Range/Units 19:01 17:47 WBC (4.8-10.8) K/uL RBC (4.40-5.90) Mil/uL Hgb (12.0-18.0) g/dL Hct (35.0-51.0) % MCV (80.0-94.0) fL MCH (27.0-31.0) pg MCHC (33.0-37.0) g/dL RDW (11.5-14.5) % Plt Count (130-400) K/uL MPV (7.2-11.7) fL Neut % (Auto) (50.0-75.0) % Lymph % (Auto) (20.0-40.0) % Alexander % (Auto) (0.0-10.0) % Eos % (Auto) (0.0-4.0) % Baso % (Auto) (0.0-2.0) % Neut # (1.8-7.0) K/uL Lymph # (1.0-4.3) K/uL Alexander # (0.0-0.8) K/uL Eos # (0.0-0.7) K/uL Baso # (0.0-0.2) K/uL Neutrophils % (Manual) (50-75) % Band Neutrophils % (0-2) % Lymphocytes % (Manual) (20-40) % Monocytes % (Manual) (0-10) % Eosinophils % (Manual) (0-4) % Platelet Estimate (NORMAL) Large Platelets Ovalocytes Puncture Site pCO2 (35-45) mm/Hg pO2 (80-100) mm/Hg HCO3 (21-28) mmol/L ABG pH (7.35-7.45) ABG Total CO2 (22-28) mmol/L ABG O2 Saturation (95-98) % ABG Base Excess (-2.0-3.0) mmol/L ABG Hemoglobin (11.7-17.4) g/dL ABG Carboxyhemoglobin (0.5-1.5) % POC ABG HHb (Measured) (0.0-5.0) % ABG Methemoglobin (0.0-3.0) % Mono Test A-a O2 Difference mm/Hg Respiratory Index Hgb O2 Saturation (95.0-98.0) % Mechanical Rate FiO2 % Tidal Volume PEEP Sodium 138 (132-148) mmol/L Potassium 3.6 (3.6-5.2) mmol/L Chloride 100 (98-107) mmol/L Carbon Dioxide 30 (22-30) mmol/L Anion Gap 11 (10-20) BUN 17 (9-20) mg/dL Creatinine 1.2 (0.8-1.5) MG/DL Est GFR ( Amer) > 60 Est GFR (Non-Af Amer) 59 POC Glucose (mg/dL) 86 (65-110) mg/dL Random Glucose 99 (75-110) mg/dL Calcium 8.6 (8.6-10.4) mg/dl Phosphorus (2.5-4.5) mg/dL Magnesium (1.6-2.3) mg/dL Total Bilirubin (0.2-1.3) mg/dL AST (17-59) U/L ALT (21-72) U/L Alkaline Phosphatase (38-126) U/L Total Protein (6.3-8.3) g/dL Albumin (3.5-5.0) g/dL Globulin (2.2-3.9) gm/dL Albumin/Globulin Ratio (1.0-2.1) Digoxin (0.8-2.0) ng/mL Laboratory Results - last 24 hr 01/09/17 01/09/17 01/10/17 17:47 19:01 00:12 WBC RBC Hgb Hct MCV MCH MCHC RDW Plt Count MPV Neut % (Auto) Lymph % (Auto) Alexander % (Auto) Eos % (Auto) Baso % (Auto) Neut # Lymph # Alexander # Eos # Baso # Neutrophils % (Manual) Band Neutrophils % Lymphocytes % (Manual) Monocytes % (Manual) Eosinophils % (Manual) Platelet Estimate Large Platelets Ovalocytes Puncture Site pCO2 pO2 HCO3 ABG pH ABG Total CO2 ABG O2 Saturation ABG Base Excess ABG Hemoglobin ABG Carboxyhemoglobin POC ABG HHb (Measured) ABG Methemoglobin Mono Test A-a O2 Difference Respiratory Index Hgb O2 Saturation Mechanical Rate FiO2 Tidal Volume PEEP Sodium 138 Potassium 3.6 Chloride 100 Carbon Dioxide 30 Anion Gap 11 BUN 17 Creatinine 1.2 Est GFR ( Amer) > 60 Est GFR (Non-Af Amer) 59 POC Glucose (mg/dL) 86 113 H Random Glucose 99 Calcium 8.6 Phosphorus Magnesium Total Bilirubin AST ALT Alkaline Phosphatase Total Protein Albumin Globulin Albumin/Globulin Ratio Digoxin 01/10/17 01/10/17 01/10/17 05:30 06:20 06:29 WBC 12.8 H RBC 4.12 L Hgb 11.6 L Hct 36.5 MCV 88.5 MCH 28.2 MCHC 31.9 L RDW 13.9 Plt Count 169 MPV 10.2 Neut % (Auto) 86.2 H Lymph % (Auto) 4.0 L Alexander % (Auto) 8.6 Eos % (Auto) 0.5 Baso % (Auto) 0.7 Neut # 11.0 H Lymph # 0.5 L Alexander # 1.1 H Eos # 0.1 Baso # 0.1 Neutrophils % (Manual) 84 H Band Neutrophils % 2 Lymphocytes % (Manual) 5 L Monocytes % (Manual) 8 Eosinophils % (Manual) 1 Platelet Estimate Normal Large Platelets Present Ovalocytes Slight Puncture Site Rr pCO2 53 H pO2 84 HCO3 27.1 ABG pH 7.35 ABG Total CO2 30.9 H ABG O2 Saturation 98.1 H ABG Base Excess 2.8 ABG Hemoglobin 11.2 L ABG Carboxyhemoglobin 1.7 H POC ABG HHb (Measured) 1.8 ABG Methemoglobin 1.2 Mono Test Pos A-a O2 Difference 563.0 Respiratory Index 6.7 Hgb O2 Saturation 95.2 Mechanical Rate 16 FiO2 100.0 Tidal Volume 500 PEEP 0 Sodium 139 Potassium 3.9 Chloride 102 Carbon Dioxide 26 Anion Gap 16 BUN 19 Creatinine 1.2 Est GFR ( Amer) > 60 Est GFR (Non-Af Amer) 59 POC Glucose (mg/dL) 148 H Random Glucose 121 H Calcium 8.9 Phosphorus 2.7 Magnesium 2.2 Total Bilirubin 0.8 AST 33 ALT 27 Alkaline Phosphatase 83 Total Protein 6.7 Albumin 3.4 L Globulin 3.3 Albumin/Globulin Ratio 1.0 Digoxin < 0.4 L 01/10/17 01/10/17 10:54 11:39 WBC RBC Hgb Hct MCV MCH MCHC RDW Plt Count MPV Neut % (Auto) Lymph % (Auto) Alexander % (Auto) Eos % (Auto) Baso % (Auto) Neut # Lymph # Alexander # Eos # Baso # Neutrophils % (Manual) Band Neutrophils % Lymphocytes % (Manual) Monocytes % (Manual) Eosinophils % (Manual) Platelet Estimate Large Platelets Ovalocytes Puncture Site Rr pCO2 47 H pO2 230 H HCO3 26.6 ABG pH 7.38 ABG Total CO2 29.2 H ABG O2 Saturation 99.4 H ABG Base Excess 2.1 ABG Hemoglobin 11.4 L ABG Carboxyhemoglobin 1.3 POC ABG HHb (Measured) 0.6 ABG Methemoglobin 1.4 Mono Test Pos A-a O2 Difference 282.0 Respiratory Index 1.2 Hgb O2 Saturation 96.7 Mechanical Rate 16 FiO2 80.0 Tidal Volume 500 PEEP 5 Sodium Potassium Chloride Carbon Dioxide Anion Gap BUN Creatinine Est GFR ( Amer) Est GFR (Non-Af Amer) POC Glucose (mg/dL) 139 H Random Glucose Calcium Phosphorus Magnesium Total Bilirubin AST ALT Alkaline Phosphatase Total Protein Albumin Globulin Albumin/Globulin Ratio Digoxin Fingerstick Blood Sugar Results: 139 <Arnaldo Demarco - Last Filed: 01/10/17 18:39> CCU Objective - Vital Signs / Intake & Output Vital Signs (Last 4 hours): Vital Signs Temp Pulse Resp BP Pulse Ox 01/10/17 17:03 126 H 24 122/71 100 01/10/17 17:00 123 H 23 100 01/10/17 16:27 119 H 25 H 100 01/10/17 16:18 105 H 28 H 107/59 L 100 01/10/17 16:15 116 H 27 H 112/63 100 01/10/17 16:00 100 F H 135 H 28 H 107/59 L 100 01/10/17 15:22 128 H 29 H 100 01/10/17 15:18 116 H 30 H 154/90 H 100 01/10/17 15:08 115 H 21 156/137 H 100 01/10/17 15:00 127 H 100 Intake and Output (Last 8hrs): Intake & Output 01/10/17 01/10/17 01/10/17 06:59 14:59 22:59 Intake Total 885.4 910.9 425 Output Total 1795 350 Balance 885.4 -884.1 75 Weight 218 lb 9 oz Intake: Intake, IV Amount 885.4 910.9 425 Left Antecubital 800 800 300 Left Antecubital Y Port 85.4 110.9 125 Output: Urine 1795 350 Urethral (Early) 1795 350 Other: # Voids Urethral ([place]) 42 42 - Medications Active Medications: Active Medications Generic Name Dose Route Start Last Admin Trade Name Freq PRN Reason Stop Dose Admin Aspirin 325 mg 01/11/17 10:00 Aspirin PO DAILY HERMILO Digoxin 0.25 mg 01/10/17 19:00 Lanoxin IVP 01/11/17 01:01 Q6H HERMILO Furosemide 40 mg 01/10/17 22:00 Lasix IVP 01/10/17 22:01 ONCE ONE Nicardipine HCl 25 mg/ Sodium 250 mls @ 50 mls/hr 01/09/17 09:45 01/10/17 16:21 Chloride IV Not Given .Q5H HERMILO Protocol 5 MG/HR Propofol 100 mls @ 3.06 mls/hr 01/09/17 10:28 01/10/17 09:24 Diprivan IV 0 mcg/kg/min .Q24H PRN Titration TITRATE PER MD ORDER Protocol 5 MCG/KG/MIN Sodium Chloride 1,000 mls @ 100 mls/hr 01/09/17 15:00 01/10/17 14:20 Sodium Chloride 0.9% IV 100 mls/hr .Q10H HERMILO Administration Insulin Human Regular 0 unit 01/09/17 18:00 01/10/17 11:49 Novolin R SC Not Given Q6H [facility] Protocol Pantoprazole Sodium 40 mg 01/09/17 12:15 01/10/17 09:26 Protonix Inj IVP 40 mg DAILY HERMILO Administration Pneumococcal Polyvalent Vaccine 0.5 ml 01/11/17 11:05 Pneumovax 23 Vaccine IM 01/11/17 11:06 .ONCE ONE - Patient Studies Lab Studies: Microbiology Studies 01/10/17 14:45 Gram Stain - Final Trachasp 01/09/17 10:42 MRSA Culture (Admit) - Final Nose MRSA NOT DETECTED Lab Studies 01/10/17 01/10/17 01/10/17 Range/Units 18:16 11:39 10:54 WBC (4.8-10.8) K/uL RBC (4.40-5.90) Mil/uL Hgb (12.0-18.0) g/dL Hct (35.0-51.0) % MCV (80.0-94.0) fL MCH (27.0-31.0) pg MCHC (33.0-37.0) g/dL RDW (11.5-14.5) % Plt Count (130-400) K/uL MPV (7.2-11.7) fL Neut % (Auto) (50.0-75.0) % Lymph % (Auto) (20.0-40.0) % Alexander % (Auto) (0.0-10.0) % Eos % (Auto) (0.0-4.0) % Baso % (Auto) (0.0-2.0) % Neut # (1.8-7.0) K/uL Lymph # (1.0-4.3) K/uL Alexander # (0.0-0.8) K/uL Eos # (0.0-0.7) K/uL Baso # (0.0-0.2) K/uL Neutrophils % (Manual) (50-75) % Band Neutrophils % (0-2) % Lymphocytes % (Manual) (20-40) % Monocytes % (Manual) (0-10) % Eosinophils % (Manual) (0-4) % Platelet Estimate (NORMAL) Large Platelets Ovalocytes Puncture Site Rr pCO2 47 H (35-45) mm/Hg pO2 230 H (80-100) mm/Hg HCO3 26.6 (21-28) mmol/L ABG pH 7.38 (7.35-7.45) ABG Total CO2 29.2 H (22-28) mmol/L ABG O2 Saturation 99.4 H (95-98) % ABG Base Excess 2.1 (-2.0-3.0) mmol/L ABG Hemoglobin 11.4 L (11.7-17.4) g/dL ABG Carboxyhemoglobin 1.3 (0.5-1.5) % POC ABG HHb (Measured) 0.6 (0.0-5.0) % ABG Methemoglobin 1.4 (0.0-3.0) % Mono Test Pos A-a O2 Difference 282.0 mm/Hg Respiratory Index 1.2 Hgb O2 Saturation 96.7 (95.0-98.0) % Mechanical Rate 16 FiO2 80.0 % Tidal Volume 500 PEEP 5 Sodium (132-148) mmol/L Potassium (3.6-5.2) mmol/L Chloride (98-107) mmol/L Carbon Dioxide (22-30) mmol/L Anion Gap (10-20) BUN (9-20) mg/dL Creatinine (0.8-1.5) MG/DL Est GFR ( Amer) Est GFR (Non-Af Amer) POC Glucose (mg/dL) 116 H 139 H (65-110) mg/dL Random Glucose (75-110) mg/dL Calcium (8.6-10.4) mg/dl Phosphorus (2.5-4.5) mg/dL Magnesium (1.6-2.3) mg/dL Total Bilirubin (0.2-1.3) mg/dL AST (17-59) U/L ALT (21-72) U/L Alkaline Phosphatase (38-126) U/L Total Protein (6.3-8.3) g/dL Albumin (3.5-5.0) g/dL Globulin (2.2-3.9) gm/dL Albumin/Globulin Ratio (1.0-2.1) Digoxin (0.8-2.0) ng/mL 01/10/17 01/10/17 01/10/17 Range/Units 06:29 06:20 05:30 WBC 12.8 H (4.8-10.8) K/uL RBC 4.12 L (4.40-5.90) Mil/uL Hgb 11.6 L (12.0-18.0) g/dL Hct 36.5 (35.0-51.0) % MCV 88.5 (80.0-94.0) fL MCH 28.2 (27.0-31.0) pg MCHC 31.9 L (33.0-37.0) g/dL RDW 13.9 (11.5-14.5) % Plt Count 169 (130-400) K/uL MPV 10.2 (7.2-11.7) fL Neut % (Auto) 86.2 H (50.0-75.0) % Lymph % (Auto) 4.0 L (20.0-40.0) % Alexander % (Auto) 8.6 (0.0-10.0) % Eos % (Auto) 0.5 (0.0-4.0) % Baso % (Auto) 0.7 (0.0-2.0) % Neut # 11.0 H (1.8-7.0) K/uL Lymph # 0.5 L (1.0-4.3) K/uL Alexander # 1.1 H (0.0-0.8) K/uL Eos # 0.1 (0.0-0.7) K/uL Baso # 0.1 (0.0-0.2) K/uL Neutrophils % (Manual) 84 H (50-75) % Band Neutrophils % 2 (0-2) % Lymphocytes % (Manual) 5 L (20-40) % Monocytes % (Manual) 8 (0-10) % Eosinophils % (Manual) 1 (0-4) % Platelet Estimate Normal (NORMAL) Large Platelets Present Ovalocytes Slight Puncture Site Rr pCO2 53 H (35-45) mm/Hg pO2 84 (80-100) mm/Hg HCO3 27.1 (21-28) mmol/L ABG pH 7.35 (7.35-7.45) ABG Total CO2 30.9 H (22-28) mmol/L ABG O2 Saturation 98.1 H (95-98) % ABG Base Excess 2.8 (-2.0-3.0) mmol/L ABG Hemoglobin 11.2 L (11.7-17.4) g/dL ABG Carboxyhemoglobin 1.7 H (0.5-1.5) % POC ABG HHb (Measured) 1.8 (0.0-5.0) % ABG Methemoglobin 1.2 (0.0-3.0) % Mono Test Pos A-a O2 Difference 563.0 mm/Hg Respiratory Index 6.7 Hgb O2 Saturation 95.2 (95.0-98.0) % Mechanical Rate 16 FiO2 100.0 % Tidal Volume 500 PEEP 0 Sodium 139 (132-148) mmol/L Potassium 3.9 (3.6-5.2) mmol/L Chloride 102 (98-107) mmol/L Carbon Dioxide 26 (22-30) mmol/L Anion Gap 16 (10-20) BUN 19 (9-20) mg/dL Creatinine 1.2 (0.8-1.5) MG/DL Est GFR ( Amer) > 60 Est GFR (Non-Af Amer) 59 POC Glucose (mg/dL) 148 H (65-110) mg/dL Random Glucose 121 H (75-110) mg/dL Calcium 8.9 (8.6-10.4) mg/dl Phosphorus 2.7 (2.5-4.5) mg/dL Magnesium 2.2 (1.6-2.3) mg/dL Total Bilirubin 0.8 (0.2-1.3) mg/dL AST 33 (17-59) U/L ALT 27 (21-72) U/L Alkaline Phosphatase 83 (38-126) U/L Total Protein 6.7 (6.3-8.3) g/dL Albumin 3.4 L (3.5-5.0) g/dL Globulin 3.3 (2.2-3.9) gm/dL Albumin/Globulin Ratio 1.0 (1.0-2.1) Digoxin < 0.4 L (0.8-2.0) ng/mL 01/10/17 01/09/17 Range/Units 00:12 19:01 WBC (4.8-10.8) K/uL RBC (4.40-5.90) Mil/uL Hgb (12.0-18.0) g/dL Hct (35.0-51.0) % MCV (80.0-94.0) fL MCH (27.0-31.0) pg MCHC (33.0-37.0) g/dL RDW (11.5-14.5) % Plt Count (130-400) K/uL MPV (7.2-11.7) fL Neut % (Auto) (50.0-75.0) % Lymph % (Auto) (20.0-40.0) % Alexander % (Auto) (0.0-10.0) % Eos % (Auto) (0.0-4.0) % Baso % (Auto) (0.0-2.0) % Neut # (1.8-7.0) K/uL Lymph # (1.0-4.3) K/uL Alexander # (0.0-0.8) K/uL Eos # (0.0-0.7) K/uL Baso # (0.0-0.2) K/uL Neutrophils % (Manual) (50-75) % Band Neutrophils % (0-2) % Lymphocytes % (Manual) (20-40) % Monocytes % (Manual) (0-10) % Eosinophils % (Manual) (0-4) % Platelet Estimate (NORMAL) Large Platelets Ovalocytes Puncture Site pCO2 (35-45) mm/Hg pO2 (80-100) mm/Hg HCO3 (21-28) mmol/L ABG pH (7.35-7.45) ABG Total CO2 (22-28) mmol/L ABG O2 Saturation (95-98) % ABG Base Excess (-2.0-3.0) mmol/L ABG Hemoglobin (11.7-17.4) g/dL ABG Carboxyhemoglobin (0.5-1.5) % POC ABG HHb (Measured) (0.0-5.0) % ABG Methemoglobin (0.0-3.0) % Mono Test A-a O2 Difference mm/Hg Respiratory Index Hgb O2 Saturation (95.0-98.0) % Mechanical Rate FiO2 % Tidal Volume PEEP Sodium 138 (132-148) mmol/L Potassium 3.6 (3.6-5.2) mmol/L Chloride 100 (98-107) mmol/L Carbon Dioxide 30 (22-30) mmol/L Anion Gap 11 (10-20) BUN 17 (9-20) mg/dL Creatinine 1.2 (0.8-1.5) MG/DL Est GFR ( Amer) > 60 Est GFR (Non-Af Amer) 59 POC Glucose (mg/dL) 113 H (65-110) mg/dL Random Glucose 99 (75-110) mg/dL Calcium 8.6 (8.6-10.4) mg/dl Phosphorus (2.5-4.5) mg/dL Magnesium (1.6-2.3) mg/dL Total Bilirubin (0.2-1.3) mg/dL AST (17-59) U/L ALT (21-72) U/L Alkaline Phosphatase (38-126) U/L Total Protein (6.3-8.3) g/dL Albumin (3.5-5.0) g/dL Globulin (2.2-3.9) gm/dL Albumin/Globulin Ratio (1.0-2.1) Digoxin (0.8-2.0) ng/mL Laboratory Results - last 24 hr 01/09/17 01/10/17 01/10/17 19:01 00:12 05:30 WBC RBC Hgb Hct MCV MCH MCHC RDW Plt Count MPV Neut % (Auto) Lymph % (Auto) Alexander % (Auto) Eos % (Auto) Baso % (Auto) Neut # Lymph # Alexander # Eos # Baso # Neutrophils % (Manual) Band Neutrophils % Lymphocytes % (Manual) Monocytes % (Manual) Eosinophils % (Manual) Platelet Estimate Large Platelets Ovalocytes Puncture Site Rr pCO2 53 H pO2 84 HCO3 27.1 ABG pH 7.35 ABG Total CO2 30.9 H ABG O2 Saturation 98.1 H ABG Base Excess 2.8 ABG Hemoglobin 11.2 L ABG Carboxyhemoglobin 1.7 H POC ABG HHb (Measured) 1.8 ABG Methemoglobin 1.2 Mono Test Pos A-a O2 Difference 563.0 Respiratory Index 6.7 Hgb O2 Saturation 95.2 Mechanical Rate 16 FiO2 100.0 Tidal Volume 500 PEEP 0 Sodium 138 Potassium 3.6 Chloride 100 Carbon Dioxide 30 Anion Gap 11 BUN 17 Creatinine 1.2 Est GFR ( Amer) > 60 Est GFR (Non-Af Amer) 59 POC Glucose (mg/dL) 113 H Random Glucose 99 Calcium 8.6 Phosphorus Magnesium Total Bilirubin AST ALT Alkaline Phosphatase Total Protein Albumin Globulin Albumin/Globulin Ratio Digoxin 01/10/17 01/10/17 01/10/17 06:20 06:29 10:54 WBC 12.8 H RBC 4.12 L Hgb 11.6 L Hct 36.5 MCV 88.5 MCH 28.2 MCHC 31.9 L RDW 13.9 Plt Count 169 MPV 10.2 Neut % (Auto) 86.2 H Lymph % (Auto) 4.0 L Alexander % (Auto) 8.6 Eos % (Auto) 0.5 Baso % (Auto) 0.7 Neut # 11.0 H Lymph # 0.5 L Alexander # 1.1 H Eos # 0.1 Baso # 0.1 Neutrophils % (Manual) 84 H Band Neutrophils % 2 Lymphocytes % (Manual) 5 L Monocytes % (Manual) 8 Eosinophils % (Manual) 1 Platelet Estimate Normal Large Platelets Present Ovalocytes Slight Puncture Site Rr pCO2 47 H pO2 230 H HCO3 26.6 ABG pH 7.38 ABG Total CO2 29.2 H ABG O2 Saturation 99.4 H ABG Base Excess 2.1 ABG Hemoglobin 11.4 L ABG Carboxyhemoglobin 1.3 POC ABG HHb (Measured) 0.6 ABG Methemoglobin 1.4 Mono Test Pos A-a O2 Difference 282.0 Respiratory Index 1.2 Hgb O2 Saturation 96.7 Mechanical Rate 16 FiO2 80.0 Tidal Volume 500 PEEP 5 Sodium 139 Potassium 3.9 Chloride 102 Carbon Dioxide 26 Anion Gap 16 BUN 19 Creatinine 1.2 Est GFR ( Amer) > 60 Est GFR (Non-Af Amer) 59 POC Glucose (mg/dL) 148 H Random Glucose 121 H Calcium 8.9 Phosphorus 2.7 Magnesium 2.2 Total Bilirubin 0.8 AST 33 ALT 27 Alkaline Phosphatase 83 Total Protein 6.7 Albumin 3.4 L Globulin 3.3 Albumin/Globulin Ratio 1.0 Digoxin < 0.4 L 01/10/17 01/10/17 11:39 18:16 WBC RBC Hgb Hct MCV MCH MCHC RDW Plt Count MPV Neut % (Auto) Lymph % (Auto) Alexander % (Auto) Eos % (Auto) Baso % (Auto) Neut # Lymph # Alexander # Eos # Baso # Neutrophils % (Manual) Band Neutrophils % Lymphocytes % (Manual) Monocytes % (Manual) Eosinophils % (Manual) Platelet Estimate Large Platelets Ovalocytes Puncture Site pCO2 pO2 HCO3 ABG pH ABG Total CO2 ABG O2 Saturation ABG Base Excess ABG Hemoglobin ABG Carboxyhemoglobin POC ABG HHb (Measured) ABG Methemoglobin Mono Test A-a O2 Difference Respiratory Index Hgb O2 Saturation Mechanical Rate FiO2 Tidal Volume PEEP Sodium Potassium Chloride Carbon Dioxide Anion Gap BUN Creatinine Est GFR ( Amer) Est GFR (Non-Af Amer) POC Glucose (mg/dL) 139 H 116 H Random Glucose Calcium Phosphorus Magnesium Total Bilirubin AST ALT Alkaline Phosphatase Total Protein Albumin Globulin Albumin/Globulin Ratio Digoxin Attending/Attestation - Attestation I have personally seen and examined this patient.: Yes I have fully participated in the care of the patient.: Yes I have reviewed all pertinent clinical information: Yes Notes (Text): 01/10/17 18:37 I have seen and examined the patient. Medical records, lab studies, and imaging were reviewed by me and a management plan was formulated on multidisciplinary rounds with resident Dr. Ng. I agree with their above documented assessment and plan. Patient is alert and following commands. Not tolerating PS trials. Still fluid overloaded, diuresing. Hopefully will wean to extubate in the next day or so. Spoke with Grandson [phone], Tim Duffy. Also spoke to granddaughter today. Patient has a son, who does not speak much frisian who is coming to the hospital to see the patient. Critical Care Time 45 minutes. Multi-disciplinary rounds were performed with house staff, nursing, speech therapy, respiratory therapy, pharmacy and nutrition with integrated input from the primary team/attending and other consulting services. The documented time is cumulative and includes review of patient data/exams/labs/chart review and examination of the patient on rounds and throughout the day; time is exclusive of any procedures or teaching time. 01/10/17 18:39
--- NOTE | 2017-01-10 15:30 | CT ---
PROCEDURE: CT HEAD WITHOUT CONTRAST. HISTORY: 24 hr follow up of bleed COMPARISON: Comparison made with CT scan brain 01/09/2017. TECHNIQUE: Axial computed tomography images were obtained through the head/brain without intravenous contrast. Note that the examination is somewhat limited by motion artifact Radiation dose: Total exam DLP = 1233.9 mGy-cm. This CT exam was performed using one or more of the following dose reduction techniques: Automated exposure control, adjustment of the mA and/or kV according to patient size, and/or use of iterative reconstruction technique. FINDINGS: HEMORRHAGE: The current study re- demonstrates an elliptical shaped hematoma, the epicenter of which is located in the left posterolateral basal ganglia the anterolateral margin of which extends from the posterior subinsular region posteriorly into the left thalamus. This hemorrhage measures approximately 4.0 x 1.8 x 3.1 cm. The hemorrhage is surrounded by a moderate-sized rim of low-attenuation edema and or necrotic brain tissue. The largest components of this edema is located over anteriorly extending along the lateral white matter tract left basal ganglia and superiorly above the level of the hematoma extending into the coronal radiata and inferior centrum semiovale. . These findings are most consistent with a hypertensive hemorrhage however clinical correlation is recommended. The hemorrhage does exerts surrounding mass effect with overlying compression of overlying sulci and gyri particularly conspicuous at the level of the left sylvian fissure which is compressed posteriorly. There is also compression of the inferolateral surface of the left ventricle. No significant midline shift No new hemorrhage. BRAIN: Suspect mild chronic periventricular white matter ischemic changes on. In addition, there may also be a few tiny chronic bilateral basal nuclei lacunar type infarcts. Moderate atrophy. VENTRICLES: As mentioned above, there is mild compression left lateral ventricle. No evidence of obstructive hydrocephalus. . CALVARIUM: Calvarium is intact. PARANASAL SINUSES: Unremarkable as visualized. No significant inflammatory changes. MASTOID AIR CELLS: Unremarkable as visualized. No inflammatory changes. OTHER FINDINGS: Bilateral cataract surgery. IMPRESSION: Re- demonstrated is a large left lateral basal ganglia hemorrhage surrounded by a low-attenuation edema and or necrotic brain tissue. The hemorrhage and its attendant peripheral edema the do exert mild surrounding mass effect as detailed above. No evidence of hydrocephalus. No new hemorrhage.
[2017-01-10] MEDS: Digoxin 500 mcg/2ml (0.5 mg/2ml) Inj IVP SCH (19:00)
[2017-01-11] MEDS: Acetaminophen 650mg/20.3ml solution UD PO PRN ×2 (00:13→12:14)
[2017-01-11] MEDS: Sodium Chloride 0.9% 1,000 ML IV SCH ×3 (00:23→17:51)
[2017-01-11] MEDS: niCARdipine IV 25 MG in Sodium Chloride 0.9% 240 ML IV SCH ×5 (01:00→21:00)
[2017-01-11] MEDS ORDERED: Digoxin 500 mcg/2ml (0.5 mg/2ml) Inj IVP ONE (03:15)
[2017-01-11] MEDS: Digoxin 500 mcg/2ml (0.5 mg/2ml) Inj IVP SCH ×2 (03:37→17:51)
[2017-01-11 04:38] LABS: ABG ALLEN TEST POS; ABG MECHANICAL RATE 16; ATERIAL BLOOD GAS PEEP 7; CARBOXYHEMOGLOBIN 2.8 % (0.5-1.5); DRAW SITE RR; HHB 0.1 % (0.0-5.0); METHEMOGLOBIN 1.1 % (0.0-3.0)
[2017-01-11 06:29] LABS: BASO # 0.1 K/uL (0.0-0.2); BASO % 0.6 % (0.0-2.0); EOS # 0.1 K/uL (0.0-0.7); EOS % 0.5 % (0.0-4.0); HEMATOCRIT 33.8 % (35.0-51.0); LYMPH % 6.5 % (20.0-40.0); MEAN CELL VOLUME 88.7 fL (80.0-94.0); MEAN CORPUSCULAR HEMOGLOBIN 28.5 pg (27.0-31.0); MEAN CORPUSCULAR HGB CONC 32.1 g/dL (33.0-37.0); MEAN PLATELET VOLUME 10.3 fL (7.2-11.7); MONO # 1.7 K/uL (0.0-0.8); MONO % 10.6 % (0.0-10.0); PLATELET COUNT 144 K/uL (130-400); RED CELL DISTRIBUTION WIDTH 14.1 % (11.5-14.5); WHITE BLOOD COUNT 15.8 K/uL (4.8-10.8)
[2017-01-11] MEDS: (Novolin R) Insulin Human Regular 100 units/ml vial SC SCH ×3 (06:30→17:51)
[2017-01-11 06:43] LABS: CHLORIDE 100 mmol/L (98-107); POTASSIUM 3.2 mmol/L (3.6-5.2); SODIUM 139 mmol/L (132-148)
[2017-01-11 06:45] LABS: ALKALINE PHOSPHATASE 65 U/L (38-126); AST/SGOT 40 U/L (17-59); BILIRUBIN,TOTAL 1.4 mg/dL (0.2-1.3); CARBON DIOXIDE 32 mmol/L (22-30); GFR AFRICAN-AMERICAN > 60; TOTAL PROTEIN 5.7 g/dL (6.3-8.3)
[2017-01-11 06:46] LABS: ALT/SGPT 25 U/L (21-72); BLOOD UREA NITROGEN 22 mg/dL (9-20); CALCIUM 8.1 mg/dl (8.6-10.4); GLUCOSE,RANDOM 101 mg/dL (75-110); PHOSPHOROUS 2.6 mg/dL (2.5-4.5)
[2017-01-11 08:26] LABS: NEUTROPHIL 84 % (50-75); TOTAL CELLS COUNTED 100
[2017-01-11 08:27] LABS: GIANT PLATELETS PRESENT; LARGE PLATELETS PRESENT
--- NOTE | 2017-01-11 10:36 | RAD ---
HISTORY: intubated COMPARISON: Chest x-ray performed 01/10/17 TECHNIQUE: Chest, one view. FINDINGS: Examination limited by habitus. The distal tip of the endotracheal tube terminates approximately 4 cm above the deya. Nasogastric tube extends expected location of the stomach. Additional external wires and leads obscure evaluation of the underlying parenchyma. LUNGS: Small right pleural effusion and associated consolidation. No definite pneumothorax. Pulmonary venous congestion. Please note that chest x-ray has limited sensitivity for the detection of pulmonary masses. CARDIOVASCULAR: Cardiomegaly. Atherosclerotic calcifications of the aorta. OSSEOUS STRUCTURES: Degenerative changes. VISUALIZED UPPER ABDOMEN: Unremarkable. OTHER FINDINGS: None. IMPRESSION: Small right pleural effusion and associated consolidation. Pulmonary venous congestion. Support lines and tubes as above.
[2017-01-11] MEDS ORDERED: Pneumococcal 23-Valent Vaccine IM ONE (11:05)
[2017-01-11] MEDS ORDERED: Potassium Chloride 20 mEq/15 ml LIQ UD PO ONE (11:45)
--- NOTE | 2017-01-11 11:59 | CP.PCM.PN ---
Subjective - Date & Time of Evaluation Date of Evaluation: 01/11/17 Time of Evaluation: 11:00 - Subjective Subjective: Mr. Duffy was seen and examined today at bedside. His son and [id number] were present and had some questions regarding the patient's current status. These questions were answered to their satisfaction. The patient was still intubated, but was on CPAP and awake, following simple commands intermittently. There were no acute events overnight; however, he was agitated and apparently attempting to remove his ET tube. He had mittens on to prevent him for extubating himself. Objective - Vital Signs/Intake and Output Vital Signs (last 24 hours): Temp Pulse Resp BP Pulse Ox 98.9 F 89 25 H 118/71 100 01/11/17 06:00 01/11/17 10:00 01/11/17 10:00 01/11/17 09:18 01/11/17 10:00 Intake and Output: 01/11/17 01/11/17 06:59 18:59 Intake Total 1563.1 252 Output Total 1063 143 Balance 500.1 109 - Medications Medications: Current Medications Acetaminophen (Tylenol 650mg/20.3ml Solution Ud) 650 mg PO Q6 PRN PRN Reason: Fever >100.4 F Last Admin: 01/11/17 00:13 Dose: 650 mg Aspirin (Ecotrin) 81 mg PO DAILY HERMILO Digoxin (Lanoxin) 0.1 mg IVP DAILY@1800 [facility]O Nicardipine HCl 25 mg/ Sodium (Chloride) 250 mls @ 50 mls/hr IV .Q5H HERMILO; 5 MG/ HR PRN Reason: Protocol Last Admin: 01/11/17 07:26 Dose: Not Given Propofol (Diprivan) 100 mls @ 3.06 mls/hr IV .Q24H PRN; Protocol; 5 MCG/KG/MIN PRN Reason: TITRATE PER MD ORDER Last Admin: 01/11/17 03:45 Dose: 12.242 mls/hr Sodium Chloride (Sodium Chloride 0.9%) 1,000 mls @ 100 mls/hr IV .Q10H HERMILO Last Admin: 01/11/17 07:27 Dose: Not Given Cefepime HCl 1 gm/ Dextrose 50 mls @ 100 mls/hr IVPB Q8H HERMILO Insulin Human Regular (Novolin R) 0 unit SC Q6H HERMILO PRN Reason: Protocol Last Admin: 01/11/17 06:30 Dose: Not Given Pantoprazole Sodium (Protonix Inj) 40 mg IVP DAILY [facility] Last Admin: 01/10/17 09:26 Dose: 40 mg Potassium Chloride (Potassium Chloride Oral Soln) 40 meq PO ONCE ONE Stop: 01/11/17 11:46 Rosuvastatin Calcium (Crestor) 10 mg PO HS [facility] Last Admin: 01/10/17 21:20 Dose: 10 mg - Labs Labs: 01/11/17 06:21 01/11/17 06:21 PT 12.3 SECONDS (9.7-12.2) H 01/09/17 09:29 INR 1.1 01/09/17 09:29 APTT 31 SECONDS (21-34) 01/09/17 09:29 - Constitutional Appears: Agitated, Confused - Head Exam Head Exam: ATRAUMATIC, NORMAL INSPECTION, NORMOCEPHALIC - Eye Exam Pupil Exam: NORMAL ACCOMODATION, PERRL - Respiratory Exam Additional comments: Intubated, off sedation - Cardiovascular Exam Cardiovascular Exam: Irregular Rhythm, +S1, +S2. absent: Murmur - GI/Abdominal Exam GI & Abdominal Exam: Soft, Normal Bowel Sounds. absent: Tenderness - Neurological Exam Neurological Exam: Alert, Awake, CN II-XII Intact Neuro motor strength exam: Left Upper Extremity: 5, Right Upper Extremity: 0, Left Lower Extremity: 5, Right Lower Extremity: 3 - Psychiatric Exam Psychiatric exam: Agitated - Skin Skin Exam: Dry, Intact, Normal Color, Warm Assessment and Plan (1) Intraparenchymal hemorrhage of brain Assessment & Plan: Continue strict BP control and attempt to extubate today. Avoid hyperglycemia or hyperthermia. Repeat CT head today at 3 PM. Status: Acute (2) Atrial fibrillation Assessment & Plan: Risk of ischemic stroke is considerable, especially since the patient was recently given PCC. Aspirin 81 mg daily should be safe to prevent ischemic stroke. This was discussed with family and they understand there is an increased risk of ICH, but the prevention of ischemic stroke in this setting is also important. The bleed has been stable, and it has been over 48 hours. Status: Acute
[2017-01-11 12:13] LABS: ARTERIAL BLOOD HGB O2 SAT 93.8 % (95.0-98.0); ATERIAL BLOOD GAS PEEP 7; CARBOXYHEMOGLOBIN 2.1 % (0.5-1.5); DRAW SITE RBA; HHB 3.1 % (0.0-5.0); METHEMOGLOBIN 0.9 % (0.0-3.0)
--- NOTE | 2017-01-11 15:21 | CARD ---
APPROVED REPORT EKG Measurement Heart [id number] <Conclusion> Atrial fibrillation with rapid ventricular response with premature ventricular or aberrantly conducted complexes Left axis deviation ST & T wave abnormality, consider lateral ischemia Abnormal ECG
--- NOTE | 2017-01-11 15:31 | CP.CCUPN ---
CCU Subjective - Physician Review Events Since Last Encounter (Free Text): 01/11/17 15:21 Alert, following some commands, periods of agitation, tolerating PS trial today. CCU Objective - Vital Signs / Intake & Output Vital Signs (Last 4 hours): Vital Signs Temp Pulse Resp BP Pulse Ox 01/11/17 13:18 95 H 22 101/57 L 99 01/11/17 13:14 101.5 F H 01/11/17 12:21 110 H 17 147/114 H 97 Intake and Output (Last 8hrs): Intake & Output 01/11/17 01/11/17 01/11/17 06:59 14:59 22:59 Intake Total 1056 822 Output Total 664 1193 Balance 392 -371 Weight 218 lb 2 oz Intake: Intake, IV Amount 896 762 Left Antecubital 800 700 Left Antecubital Y Port 96 62 Tube Feeding 160 60 Output: Urine 664 1193 Urethral (Sanchez) 664 1193 - Physical Exam Head: Positive for: Atraumatic, Normocephalic Extroacular Muscles: Positive for: EOMI Conjunctiva: Positive for: Injected Mouth: Positive for: Dry Respiratory/Chest: Positive for: Respiratory Distress (pt intubated, off sedation) Cardiovascular: Positive for: Normal S1, S2, Irregular Rhythm Abdomen: Positive for: Normal Bowel Sounds Lower Extremity: Positive for: Normal Inspection, NORMAL PULSES - Medications Active Medications: Active Medications Generic Name Dose Route Start Last Admin Trade Name Freq PRN Reason Stop Dose Admin Acetaminophen 650 mg 01/10/17 23:50 01/11/17 12:14 Tylenol 650mg/20.3ml Solution Ud PO 650 mg Q6 PRN Administration Fever >100.4 F Aspirin 81 mg 01/11/17 11:00 01/11/17 12:15 Ecotrin PO 81 mg DAILY HERMILO Administration Digoxin 0.1 mg 01/11/17 18:00 Lanoxin IVP DAILY@1800 HER[facility]O Nicardipine HCl 25 mg/ Sodium 250 mls @ 50 mls/hr 01/09/17 09:45 01/11/17 12:00 Chloride IV Not Given .Q5H HERMILO Protocol 5 MG/HR Propofol 100 mls @ 3.06 mls/hr 01/09/17 10:28 01/11/17 08:00 Diprivan IV 0 mcg/kg/min .Q24H PRN Titration TITRATE PER MD ORDER Protocol 5 MCG/KG/MIN Sodium Chloride 1,000 mls @ 100 mls/hr 01/09/17 15:00 01/11/17 07:27 Sodium Chloride 0.9% IV Not Given .Q10H HERMILO Cefepime HCl 1 gm/ Dextrose 50 mls @ 100 mls/hr 01/11/17 12:00 01/11/17 13:31 IVPB 100 mls/hr Q8H HERMILO Administration Insulin Human Regular 0 unit 01/09/17 18:00 01/11/17 12:11 Novolin R SC Not Given Q6H HERMILO Protocol Pantoprazole Sodium 40 mg 01/09/17 12:15 01/11/17 12:14 Protonix Inj IVP 40 mg DAILY HERMILO Administration Rosuvastatin Calcium 10 mg 01/10/17 22:00 01/10/17 21:20 Crestor PO 10 mg HS HERMILO Administration - Patient Studies Lab Studies: Microbiology Studies 01/10/17 12:30 Blood Culture - Preliminary Blood NO GROWTH AFTER 24 HOURS 01/10/17 12:00 Blood Culture - Preliminary Blood NO GROWTH AFTER 24 HOURS 01/10/17 14:45 Gram Stain - Final Trachasp Sputum Culture - Preliminary No growth. 01/10/17 14:15 Urine Culture - Preliminary Urine,Sanchez Gram Pos Cocci In Chains 01/09/17 10:42 MRSA Culture (Admit) - Final Nose MRSA NOT DETECTED Lab Studies 01/11/17 01/11/17 01/11/17 Range/Units 13:09 12:06 11:28 WBC (4.8-10.8) K/uL RBC (4.40-5.90) Mil/uL Hgb (12.0-18.0) g/dL Hct (35.0-51.0) % MCV (80.0-94.0) fL MCH (27.0-31.0) pg MCHC (33.0-37.0) g/dL RDW (11.5-14.5) % Plt Count (130-400) K/uL MPV (7.2-11.7) fL Neut % (Auto) (50.0-75.0) % Lymph % (Auto) (20.0-40.0) % [place] % (Auto) (0.0-10.0) % Eos % (Auto) (0.0-4.0) % Baso % (Auto) (0.0-2.0) % Neut # (1.8-7.0) K/uL Lymph # (1.0-4.3) K/uL [place] # (0.0-0.8) K/uL Eos # (0.0-0.7) K/uL Baso # (0.0-0.2) K/uL Neutrophils % (Manual) (50-75) % Band Neutrophils % (0-2) % Lymphocytes % (Manual) (20-40) % Monocytes % (Manual) (0-10) % Platelet Estimate (NORMAL) Large Platelets Giant Platelets Polychromasia Hypochromasia (manual) Poikilocytosis (manual Anisocytosis (manual) Ovalocytes Puncture Site Rba pCO2 44 (35-45) mm/Hg pO2 66 L (80-100) mm/Hg HCO3 30.1 H (21-28) mmol/L ABG pH 7.46 H (7.35-7.45) ABG Total CO2 32.7 H (22-28) mmol/L ABG O2 Saturation 96.8 (95-98) % ABG Base Excess 6.7 H (-2.0-3.0) mmol/L ABG Hemoglobin 11.5 L (11.7-17.4) g/dL ABG Carboxyhemoglobin 2.1 H (0.5-1.5) % POC ABG HHb (Measured) 3.1 (0.0-5.0) % ABG Methemoglobin 0.9 (0.0-3.0) % Mono Test Na A-a O2 Difference 164.0 mm/Hg Respiratory Index 2.5 Hgb O2 Saturation 93.8 L (95.0-98.0) % Mechanical Rate FiO2 40.0 % Tidal Volume PEEP 7 Pressure Support 12 Sodium (132-148) mmol/L Potassium (3.6-5.2) mmol/L Chloride (98-107) mmol/L Carbon Dioxide (22-30) mmol/L Anion Gap (10-20) BUN (9-20) mg/dL Creatinine (0.8-1.5) MG/DL Est GFR ( Amer) Est GFR (Non-Af Amer) POC Glucose (mg/dL) 117 H (65-110) mg/dL Random Glucose (75-110) mg/dL Calcium (8.6-10.4) mg/dl Phosphorus (2.5-4.5) mg/dL Magnesium (1.6-2.3) mg/dL Total Bilirubin (0.2-1.3) mg/dL AST (17-59) U/L ALT (21-72) U/L Alkaline Phosphatase (38-126) U/L Total Protein (6.3-8.3) g/dL Albumin (3.5-5.0) g/dL Globulin (2.2-3.9) gm/dL Albumin/Globulin Ratio (1.0-2.1) Procalcitonin 2.94 H (0.19-0.49) NG/ML 01/11/17 01/11/17 01/11/17 Range/Units 06:21 05:20 04:20 WBC 15.8 H (4.8-10.8) K/uL RBC 3.81 L (4.40-5.90) Mil/uL Hgb 10.9 L (12.0-18.0) g/dL Hct 33.8 L (35.0-51.0) % MCV 88.7 (80.0-94.0) fL MCH 28.5 (27.0-31.0) pg MCHC 32.1 L (33.0-37.0) g/dL RDW 14.1 (11.5-14.5) % Plt Count 144 (130-400) K/uL MPV 10.3 (7.2-11.7) fL Neut % (Auto) 81.8 H (50.0-75.0) % Lymph % (Auto) 6.5 L (20.0-40.0) % [place] % (Auto) 10.6 H (0.0-10.0) % Eos % (Auto) 0.5 (0.0-4.0) % Baso % (Auto) 0.6 (0.0-2.0) % Neut # 12.9 H (1.8-7.0) K/uL Lymph # 1.0 (1.0-4.3) K/uL [place] # 1.7 H (0.0-0.8) K/uL Eos # 0.1 (0.0-0.7) K/uL Baso # 0.1 (0.0-0.2) K/uL Neutrophils % (Manual) 84 H (50-75) % Band Neutrophils % 2 (0-2) % Lymphocytes % (Manual) 4 L (20-40) % Monocytes % (Manual) 10 (0-10) % Platelet Estimate Normal (NORMAL) Large Platelets Present Giant Platelets Present Polychromasia Slight Hypochromasia (manual) Slight Poikilocytosis (manual Slight Anisocytosis (manual) Slight Ovalocytes Slight Puncture Site Rr pCO2 35 (35-45) mm/Hg pO2 103 H (80-100) mm/Hg HCO3 27.0 (21-28) mmol/L ABG pH 7.48 H (7.35-7.45) ABG Total CO2 27.2 (22-28) mmol/L ABG O2 Saturation 99.9 H (95-98) % ABG Base Excess 2.6 (-2.0-3.0) mmol/L ABG Hemoglobin 9.4 L (11.7-17.4) g/dL ABG Carboxyhemoglobin 2.8 H (0.5-1.5) % POC ABG HHb (Measured) 0.1 (0.0-5.0) % ABG Methemoglobin 1.1 (0.0-3.0) % Mono Test Pos A-a O2 Difference 138.0 mm/Hg Respiratory Index 1.3 Hgb O2 Saturation 96.0 (95.0-98.0) % Mechanical Rate 16 FiO2 40.0 % Tidal Volume 500 PEEP 7 Pressure Support Sodium 139 (132-148) mmol/L Potassium 3.2 L (3.6-5.2) mmol/L Chloride 100 (98-107) mmol/L Carbon Dioxide 32 H (22-30) mmol/L Anion Gap 10 (10-20) BUN 22 H (9-20) mg/dL Creatinine 1.3 (0.8-1.5) MG/DL Est GFR ( Amer) > 60 Est GFR (Non-Af Amer) 54 POC Glucose (mg/dL) 123 H (65-110) mg/dL Random Glucose 101 (75-110) mg/dL Calcium 8.1 L (8.6-10.4) mg/dl Phosphorus 2.6 (2.5-4.5) mg/dL Magnesium 2.0 (1.6-2.3) mg/dL Total Bilirubin 1.4 H (0.2-1.3) mg/dL AST 40 (17-59) U/L ALT 25 (21-72) U/L Alkaline Phosphatase 65 (38-126) U/L Total Protein 5.7 L (6.3-8.3) g/dL Albumin 2.8 L (3.5-5.0) g/dL Globulin 2.9 (2.2-3.9) gm/dL Albumin/Globulin Ratio 1.0 (1.0-2.1) Procalcitonin (0.19-0.49) NG/ML 01/10/17 01/10/17 Range/Units 23:38 18:16 WBC (4.8-10.8) K/uL RBC (4.40-5.90) Mil/uL Hgb (12.0-18.0) g/dL Hct (35.0-51.0) % MCV (80.0-94.0) fL MCH (27.0-31.0) pg MCHC (33.0-37.0) g/dL RDW (11.5-14.5) % Plt Count (130-400) K/uL MPV (7.2-11.7) fL Neut % (Auto) (50.0-75.0) % Lymph % (Auto) (20.0-40.0) % [place] % (Auto) (0.0-10.0) % Eos % (Auto) (0.0-4.0) % Baso % (Auto) (0.0-2.0) % Neut # (1.8-7.0) K/uL Lymph # (1.0-4.3) K/uL [place] # (0.0-0.8) K/uL Eos # (0.0-0.7) K/uL Baso # (0.0-0.2) K/uL Neutrophils % (Manual) (50-75) % Band Neutrophils % (0-2) % Lymphocytes % (Manual) (20-40) % Monocytes % (Manual) (0-10) % Platelet Estimate (NORMAL) Large Platelets Giant Platelets Polychromasia Hypochromasia (manual) Poikilocytosis (manual Anisocytosis (manual) Ovalocytes Puncture Site pCO2 (35-45) mm/Hg pO2 (80-100) mm/Hg HCO3 (21-28) mmol/L ABG pH (7.35-7.45) ABG Total CO2 (22-28) mmol/L ABG O2 Saturation (95-98) % ABG Base Excess (-2.0-3.0) mmol/L ABG Hemoglobin (11.7-17.4) g/dL ABG Carboxyhemoglobin (0.5-1.5) % POC ABG HHb (Measured) (0.0-5.0) % ABG Methemoglobin (0.0-3.0) % Mono Test A-a O2 Difference mm/Hg Respiratory Index Hgb O2 Saturation (95.0-98.0) % Mechanical Rate FiO2 % Tidal Volume PEEP Pressure Support Sodium (132-148) mmol/L Potassium (3.6-5.2) mmol/L Chloride (98-107) mmol/L Carbon Dioxide (22-30) mmol/L Anion Gap (10-20) BUN (9-20) mg/dL Creatinine (0.8-1.5) MG/DL Est GFR ( Amer) Est GFR (Non-Af Amer) POC Glucose (mg/dL) 130 H 116 H (65-110) mg/dL Random Glucose (75-110) mg/dL Calcium (8.6-10.4) mg/dl Phosphorus (2.5-4.5) mg/dL Magnesium (1.6-2.3) mg/dL Total Bilirubin (0.2-1.3) mg/dL AST (17-59) U/L ALT (21-72) U/L Alkaline Phosphatase (38-126) U/L Total Protein (6.3-8.3) g/dL Albumin (3.5-5.0) g/dL Globulin (2.2-3.9) gm/dL Albumin/Globulin Ratio (1.0-2.1) Procalcitonin (0.19-0.49) NG/ML Laboratory Results - last 24 hr 01/10/17 01/10/17 01/11/17 18:16 23:38 04:20 WBC RBC Hgb Hct MCV MCH MCHC RDW Plt Count MPV Neut % (Auto) Lymph % (Auto) [place] % (Auto) Eos % (Auto) Baso % (Auto) Neut # Lymph # [place] # Eos # Baso # Neutrophils % (Manual) Band Neutrophils % Lymphocytes % (Manual) Monocytes % (Manual) Platelet Estimate Large Platelets Giant Platelets Polychromasia Hypochromasia (manual) Poikilocytosis (manual Anisocytosis (manual) Ovalocytes Puncture Site Rr pCO2 35 pO2 103 H HCO3 27.0 ABG pH 7.48 H ABG Total CO2 27.2 ABG O2 Saturation 99.9 H ABG Base Excess 2.6 ABG Hemoglobin 9.4 L ABG Carboxyhemoglobin 2.8 H POC ABG HHb (Measured) 0.1 ABG Methemoglobin 1.1 Mono Test Pos A-a O2 Difference 138.0 Respiratory Index 1.3 Hgb O2 Saturation 96.0 Mechanical Rate 16 FiO2 40.0 Tidal Volume 500 PEEP 7 Pressure Support Sodium Potassium Chloride Carbon Dioxide Anion Gap BUN Creatinine Est GFR ( Amer) Est GFR (Non-Af Amer) POC Glucose (mg/dL) 116 H 130 H Random Glucose Calcium Phosphorus Magnesium Total Bilirubin AST ALT Alkaline Phosphatase Total Protein Albumin Globulin Albumin/Globulin Ratio Procalcitonin 01/11/17 01/11/17 01/11/17 05:20 06:21 11:28 WBC 15.8 H RBC 3.81 L Hgb 10.9 L Hct 33.8 L MCV 88.7 MCH 28.5 MCHC 32.1 L RDW 14.1 Plt Count 144 MPV 10.3 Neut % (Auto) 81.8 H Lymph % (Auto) 6.5 L [place] % (Auto) 10.6 H Eos % (Auto) 0.5 Baso % (Auto) 0.6 Neut # 12.9 H Lymph # 1.0 [place] # 1.7 H Eos # 0.1 Baso # 0.1 Neutrophils % (Manual) 84 H Band Neutrophils % 2 Lymphocytes % (Manual) 4 L Monocytes % (Manual) 10 Platelet Estimate Normal Large Platelets Present Giant Platelets Present Polychromasia Slight Hypochromasia (manual) Slight Poikilocytosis (manual Slight Anisocytosis (manual) Slight Ovalocytes Slight Puncture Site pCO2 pO2 HCO3 ABG pH ABG Total CO2 ABG O2 Saturation ABG Base Excess ABG Hemoglobin ABG Carboxyhemoglobin POC ABG HHb (Measured) ABG Methemoglobin Mono Test A-a O2 Difference Respiratory Index Hgb O2 Saturation Mechanical Rate FiO2 Tidal Volume PEEP Pressure Support Sodium 139 Potassium 3.2 L Chloride 100 Carbon Dioxide 32 H Anion Gap 10 BUN 22 H Creatinine 1.3 Est GFR ( Amer) > 60 Est GFR (Non-Af Amer) 54 POC Glucose (mg/dL) 123 H 117 H Random Glucose 101 Calcium 8.1 L Phosphorus 2.6 Magnesium 2.0 Total Bilirubin 1.4 H AST 40 ALT 25 Alkaline Phosphatase 65 Total Protein 5.7 L Albumin 2.8 L Globulin 2.9 Albumin/Globulin Ratio 1.0 Procalcitonin 01/11/17 01/11/17 12:06 13:09 WBC RBC Hgb Hct MCV MCH MCHC RDW Plt Count MPV Neut % (Auto) Lymph % (Auto) [place] % (Auto) Eos % (Auto) Baso % (Auto) Neut # Lymph # [place] # Eos # Baso # Neutrophils % (Manual) Band Neutrophils % Lymphocytes % (Manual) Monocytes % (Manual) Platelet Estimate Large Platelets Giant Platelets Polychromasia Hypochromasia (manual) Poikilocytosis (manual Anisocytosis (manual) Ovalocytes Puncture Site Rba pCO2 44 pO2 66 L HCO3 30.1 H ABG pH 7.46 H ABG Total CO2 32.7 H ABG O2 Saturation 96.8 ABG Base Excess 6.7 H ABG Hemoglobin 11.5 L ABG Carboxyhemoglobin 2.1 H POC ABG HHb (Measured) 3.1 ABG Methemoglobin 0.9 Mono Test Na A-a O2 Difference 164.0 Respiratory Index 2.5 Hgb O2 Saturation 93.8 L Mechanical Rate FiO2 40.0 Tidal Volume PEEP 7 Pressure Support 12 Sodium Potassium Chloride Carbon Dioxide Anion Gap BUN Creatinine Est GFR ( Amer) Est GFR (Non-Af Amer) POC Glucose (mg/dL) Random Glucose Calcium Phosphorus Magnesium Total Bilirubin AST ALT Alkaline Phosphatase Total Protein Albumin Globulin Albumin/Globulin Ratio Procalcitonin 2.94 H Fingerstick Blood Sugar Results: 123 Review of Systems - Review of Systems Systems not reviewed;Unavailable: Intubated Critical Care Progress Note - Ventilator Checklist Head of Bed 30 Degrees: Yes Daily Sedation Vacation: Yes Daily Assessment of Readiness to Wean: Yes Daily Spontaneous Breathing Trial: Yes PUD Prophalyxis: Yes DVT Prophylaxis: Yes Assessment/Plan (1) Intraparenchymal hemorrhage of brain Assessment and plan: 76 year old male of descent, with PMHx of afib (on xarelto), presenting with new onset weakness and respiratory distress. Pt intubated. CT scan shows left basal intraparenchymal bleed. Plan: Neuro: Pt intubated, daily sedation vacation. - Propofol drip CT Head (01/09/17): Left intraparenchymal hemorrhage without midline shift (see full report) - repeat CT (01/09/17): stable hemorrhage (see full report) - repeat 24hr CT (01/10/17): no new hemorrhage. Redemonstrated large left BG hemorrhage surrounded by edema and/or necrotic brain tissue. Mild mass effect. ( see full report). Decreased movement of right side; minimal movement of RUE Dr Segura, Neurology, consulted: help appreciated - Cardene drip to maintain SBP b/w 110-160 - P[facility] ([facility]) treatment completed - head of bed to 30 degrees - Stable CT head: begin ASA 325mg PO Daily - obtaining MRI today Dr. Palmer, Neurosurgery, consulted: help appreciated - No intervention at this time Elevated temp (100.3) - f/u pancultures Endo: Hgb A1c: 6.5 Accuchecks ACHS ISS - low CV: Hx of atrial fibrillation - EKG on presentation: Afib w. RVR (rate 108). Left axis deviation. - Hold Home med Xarelto 20mg Daily BP parameters (per Neurology reccs) - Systolic 110-160 - Cardene 25mg titrated for BP control Digoxin level: < 0.4 - Pt loaded, will restart daily dosing Home meds: - Digoxin 0.125 mg PO daily, Diltiazem 240mg PO Daily, Lasix 40mg PO daily Pulm: Pt intubated, now tolerating PS trials. Still mild hypoxia, continuing diuresis for pulmonary edema. Probable extubation by tomorrow. GI: Started tubefeeding: diabetisource f/u Dietary reccs LFTs WNL : BUN/Cr WNL NS @ 100 Lasix 40mg IV Q12H x 2 doses sanchez catheter in place Urine output improved Monitor I/Os ID: Leukocytosis increasing, starting Cefepime for possible VAP. followup procalcitonin. Hem/Onc: On home Xarelto - Kcentra completed for stabilization of ICH. - can restart Xarelto or alternative adjunct faculty for medical terminology stroke prophylaxis at least 6 weeks from bleed stabilization Mskltl: PT/OT eval Prophylaxis: DVT: SCDs VTE: contraindicated due to active BG bleed GI: Protonix IV Spoke with Grandson [phone], Tim Duffy. Also spoke to granddaughter today. Patient has a son, who does not speak much polish who is coming to the hospital to see the patient. Crtical Care Time spent 35 minutes Multi-disciplinary rounds were performed with house staff, nursing, speech therapy, respiratory therapy, pharmacy and nutrition with integrated input from the primary team/attending and other consulting services. The documented time is cumulative and includes review of patient data/exams/labs/chart review and examination of the patient on rounds and throughout the day; time is exclusive of any procedures or teaching time. Current Visit: Yes Status: Acute
--- NOTE | 2017-01-11 17:22 | CT ---
PROCEDURE: CT HEAD WITHOUT CONTRAST. HISTORY: assess stroke size COMPARISON: Multiple prior studies, the most recent performed 01/10/17 TECHNIQUE: Axial computed tomography images were obtained through the head/brain without intravenous contrast. Radiation dose: Total exam DLP = 1307.13 mGy-cm. This CT exam was performed using one or more of the following dose reduction techniques: Automated exposure control, adjustment of the mA and/or kV according to patient size, and/or use of iterative reconstruction technique. FINDINGS: BRAIN: Left thalamic and basal ganglia hemorrhage, similar in size and appearance. Associated edema surrounding hemorrhage. There is mass effect on the adjacent sulci and gyri. There is associated compression of the inferior lateral surface of the left lateral ventricle. Scattered periventricular and subcortical white matter hypodensities, which are nonspecific, but often seen with chronic microvascular ischemic disease. Scattered probable chronic bilateral basal ganglia lacunar type infarcts. VENTRICLES: Compression of the inferior lateral surface of the left lateral ventricle by the above described hemorrhage. No hydrocephalus. CALVARIUM: Unremarkable. PARANASAL SINUSES: Unremarkable as visualized. No significant inflammatory changes. MASTOID AIR CELLS: Unremarkable as visualized. No inflammatory changes. OTHER FINDINGS: Partially imaged endotracheal tube and nasogastric tube. IMPRESSION: Left thalamic and basal ganglia hemorrhage, similar in size and appearance. Associated edema surrounding hemorrhage. There is mass effect on the adjacent sulci and gyri. There is associated compression of the inferior lateral surface of the left lateral ventricle.
[2017-01-12] MEDS: (Novolin R) Insulin Human Regular 100 units/ml vial SC SCH ×4 (00:23→17:52)
[2017-01-12] MEDS: Acetaminophen 650mg/20.3ml solution UD PO PRN ×2 (00:24→16:20)
[2017-01-12] MEDS: niCARdipine IV 25 MG in Sodium Chloride 0.9% 240 ML IV SCH ×2 (02:00→07:55)
[2017-01-12] MEDS: Sodium Chloride 0.9% 1,000 ML IV SCH ×4 (02:00→15:13)
[2017-01-12 05:29] LABS: ABG ALLEN TEST POS; ABG MECHANICAL RATE 16; ARTERIAL BLOOD HGB O2 SAT 95.6 % (95.0-98.0); ATERIAL BLOOD GAS PEEP 7; CARBOXYHEMOGLOBIN 1.9 % (0.5-1.5); DRAW SITE LR; HHB 1.8 % (0.0-5.0); METHEMOGLOBIN 0.8 % (0.0-3.0)
[2017-01-12 06:33] LABS: BASO # 0.1 K/uL (0.0-0.2); BASO % 0.9 % (0.0-2.0); EOS # 0.1 K/uL (0.0-0.7); EOS % 0.8 % (0.0-4.0); HEMATOCRIT 34.1 % (35.0-51.0); LYMPH # 0.8 K/uL (1.0-4.3); LYMPH % 5.2 % (20.0-40.0); MEAN CELL VOLUME 88.8 fL (80.0-94.0); MEAN CORPUSCULAR HEMOGLOBIN 28.6 pg (27.0-31.0); MEAN CORPUSCULAR HGB CONC 32.2 g/dL (33.0-37.0); MEAN PLATELET VOLUME 10.7 fL (7.2-11.7); MONO # 1.1 K/uL (0.0-0.8); MONO % 7.4 % (0.0-10.0); NRBC % 0.1 % (0.0-2.0); PLATELET COUNT 154 K/uL (130-400); RED CELL DISTRIBUTION WIDTH 13.8 % (11.5-14.5); WHITE BLOOD COUNT 14.6 K/uL (4.8-10.8)
[2017-01-12 06:47] LABS: CHLORIDE 106 mmol/L (98-107); POTASSIUM 3.1 mmol/L (3.6-5.2); SODIUM 144 mmol/L (132-148)
[2017-01-12 06:49] LABS: BILIRUBIN,TOTAL 1.2 mg/dL (0.2-1.3); GFR AFRICAN-AMERICAN > 60
[2017-01-12 06:50] LABS: ALB/GLOB RATIO 0.9 (1.0-2.1); ALKALINE PHOSPHATASE 67 U/L (38-126); ALT/SGPT 27 U/L (21-72); AST/SGOT 49 U/L (17-59); BLOOD UREA NITROGEN 27 mg/dL (9-20); CALCIUM 8.3 mg/dl (8.6-10.4); CARBON DIOXIDE 31 mmol/L (22-30); GLUCOSE,RANDOM 122 mg/dL (75-110); PHOSPHOROUS 2.5 mg/dL (2.5-4.5); TOTAL PROTEIN 5.9 g/dL (6.3-8.3)
[2017-01-12 06:51] LABS: MAGNESIUM 2.2 mg/dL (1.6-2.3)
[2017-01-12 08:52] LABS: EOSINOPHIL 1 % (0-4); NEUTROPHIL 88 % (50-75); TOTAL CELLS COUNTED 100
[2017-01-12 08:53] LABS: LARGE PLATELETS PRESENT
[2017-01-12] MEDS ORDERED: Potassium Chloride 20 mEq 100 ML IVPB ONE (09:06)
--- NOTE | 2017-01-12 09:47 | CP.PCM.PN ---
Subjective - Date & Time of Evaluation Date of Evaluation: 01/12/17 Time of Evaluation: 09:30 - Subjective Subjective: alert moving left extremities on command right sided weakness is noted Objective - Vital Signs/Intake and Output Vital Signs (last 24 hours): Temp Pulse Resp BP Pulse Ox 98.6 F 76 21 113/66 99 01/12/17 08:00 01/12/17 08:00 01/12/17 08:00 01/12/17 07:18 01/12/17 08:00 Intake and Output: 01/12/17 01/12/17 06:59 18:59 Intake Total 1683.0 326.9 Output Total 1375 225 Balance 308.0 101.9 - Medications Medications: Current Medications Acetaminophen (Tylenol 650mg/20.3ml Solution Ud) 650 mg PO Q6 PRN PRN Reason: Fever >100.4 F Last Admin: 01/12/17 00:24 Dose: 650 mg Albuterol/Ipratropium (Duoneb 3 Mg/0.5 Mg (3 Ml) Ud) 3 ml INH RQ6 [facility] Aspirin (Aspirin Chewable) 81 mg PO DAILY [facility] Digoxin (Lanoxin) 0.1 mg IVP DAILY@1800 [facility]ILO Last Admin: 01/11/17 17:51 Dose: 0.1 mg Propofol (Diprivan) 100 mls @ 3.06 mls/hr IV .Q24H PRN; Protocol; 5 MCG/KG/MIN PRN Reason: TITRATE PER MD ORDER Last Admin: 01/12/17 04:10 Dose: 12.242 mls/hr Sodium Chloride (Sodium Chloride 0.9%) 1,000 mls @ 100 mls/hr IV .Q10H [facility] Last Admin: 01/12/17 06:09 Dose: 100 mls/hr Cefepime HCl 1 gm/ Dextrose 50 mls @ 100 mls/hr IVPB Q8H [facility] Last Admin: 01/12/17 03:00 Dose: 100 mls/hr Potassium Chloride (Potassium Chloride 20 Meq/100 Ml) 100 mls @ 50 mls/hr IVPB ONCE ONE Stop: 01/12/17 11:05 Insulin Human Regular (Novolin R) 0 unit SC Q6H [facility] PRN Reason: Protocol Last Admin: 01/12/17 06:08 Dose: Not Given Pantoprazole Sodium (Protonix Inj) 40 mg IVP DAILY [facility] Last Admin: 01/11/17 12:14 Dose: 40 mg Pneumococcal Polyvalent Vaccine (Pneumovax 23 Vaccine) 0.5 ml SC .ONCE ONE Stop: 01/13/17 10:01 Rosuvastatin Calcium (Crestor) 10 mg PO HS [facility] Last Admin: 01/11/17 21:11 Dose: 10 mg - Labs Labs: 01/12/17 06:27 01/12/17 06:27 PT 12.3 SECONDS (9.7-12.2) H 01/09/17 09:29 INR 1.1 01/09/17 09:29 APTT 31 SECONDS (21-34) 01/09/17 09:29 Assessment and Plan - Assessment and Plan (Free Text) Plan: continue head elevation PCC Aspirin neurology and neurosurgeon consult f/u CT seems stable continue meds as ordered
--- NOTE | 2017-01-12 10:46 | CP.CCUPN ---
CCU Subjective - Physician Review Events Since Last Encounter (Free Text): 01/12/17 10:43 Patient is a 76-year-old male with history of atrial fibrillation, on anticoagulation. Patient admitted to the hospital with acute CVA, hemorrhagic. Patient has a large hematoma. He is currently on ventilator. Today patient is opening his left side of the eye He is also able to move the left side of the upper extend the. Right-sided weakness noted. Currently sedated with propofol mild dose Hemodynamically otherwise stable. Mild tachycardia and tachypnea noted CCU Objective - Vital Signs / Intake & Output Vital Signs (Last 4 hours): Vital Signs Temp Pulse Resp BP Pulse Ox 01/12/17 10:00 86 14 100 01/12/17 09:18 76 19 112/64 100 01/12/17 08:18 76 24 111/72 99 01/12/17 08:00 98.6 F 76 21 96 01/12/17 07:18 88 17 113/66 99 01/12/17 07:00 74 20 100 Intake and Output (Last 8hrs): Intake & Output 01/11/17 01/12/17 01/12/17 22:59 06:59 14:59 Intake Total 1083.4 1149.6 676.1 Output Total 505 1000 235 Balance 578.4 149.6 441.1 Weight 216 lb 5 oz Intake: Intake, IV Amount 773.4 829.6 436.1 Left Antecubital 750 750 400 Left Antecubital Y Port 23.4 79.6 36.1 Oral 80 Tube Feeding 310 320 160 Output: Urine 505 1000 235 Urethral (Early) 505 1000 235 Other: # Bowel Movements 0 - Physical Exam Narrative Physical Exam (Free Text): 01/12/17 10:43 Right-sided ptosis noted. Moving the left side of the body. Opening his eyes with commands. Chest good air entry bilaterally. Regular heart sound, abdomen nontender, edema noted bilaterally 1+ Head: Positive for: Atraumatic, Normocephalic Extroacular Muscles: Positive for: EOMI Conjunctiva: Positive for: Injected Mouth: Positive for: Dry Respiratory/Chest: Positive for: Respiratory Distress (pt intubated, off sedation) Cardiovascular: Positive for: Normal S1, S2, Irregular Rhythm Abdomen: Positive for: Normal Bowel Sounds Lower Extremity: Positive for: Normal Inspection, NORMAL PULSES - Medications Active Medications: Active Medications Generic Name Dose Route Start Last Admin Trade Name Freq PRN Reason Stop Dose Admin Acetaminophen 650 mg 01/10/17 23:50 01/12/17 00:24 Tylenol 650mg/20.3ml Solution Ud PO 650 mg Q6 PRN Administration Fever >100.4 F Albuterol/Ipratropium 3 ml 01/12/17 14:00 Duoneb 3 Mg/0.5 Mg (3 Ml) Ud INH RQ6 [facility] Aspirin 81 mg 01/12/17 10:00 01/12/17 09:48 Aspirin Chewable PO 81 mg DAILY [facility] Administration Digoxin 0.1 mg 01/11/17 18:00 01/11/17 17:51 Lanoxin IVP 0.1 mg DAILY@1800 HERMILO Administration Propofol 100 mls @ 3.06 mls/hr 01/09/17 10:28 01/12/17 07:00 Diprivan IV 15 mcg/kg/min .Q24H PRN Titration TITRATE PER MD ORDER Protocol 5 MCG/KG/MIN Sodium Chloride 1,000 mls @ 100 mls/hr 01/09/17 15:00 01/12/17 06:09 Sodium Chloride 0.9% IV 100 mls/hr .Q10H [facility] Administration Cefepime HCl 1 gm/ Dextrose 50 mls @ 100 mls/hr 01/11/17 12:00 01/12/17 03:00 IVPB 100 mls/hr Q8H [facility] Administration Potassium Chloride 100 mls @ 50 mls/hr 01/12/17 09:06 01/12/17 09:47 Potassium Chloride 20 Meq/100 Ml IVPB 01/12/17 11:05 50 mls/hr ONCE ONE Administration Potassium Chloride 100 mls @ 50 mls/hr 01/12/17 12:00 Potassium Chloride 20 Meq/100 Ml IVPB 01/12/17 17:59 Q4 [facility] Insulin Human Regular 0 unit 01/09/17 18:00 01/12/17 06:08 Novolin R SC Not Given Q6H [facility] Protocol Pantoprazole Sodium 40 mg 01/09/17 12:15 01/12/17 09:48 Protonix Inj IVP 40 mg DAILY [facility] Administration Pneumococcal Polyvalent Vaccine 0.5 ml 01/13/17 10:00 Pneumovax 23 Vaccine SC 01/13/17 10:01 .ONCE ONE Rosuvastatin Calcium 10 mg 01/10/17 22:00 01/11/17 21:11 Crestor PO 10 mg HS HERMILO Administration - Patient Studies Lab Studies: Microbiology Studies 01/10/17 14:45 Gram Stain - Final Trachasp Sputum Culture - Final NORMAL SAPROPHYTIC ALBINO 01/10/17 14:15 Urine Culture - Final Urine,Early Enterococcus Faecalis 01/10/17 12:30 Blood Culture - Preliminary Blood NO GROWTH AFTER 24 HOURS 01/10/17 12:00 Blood Culture - Preliminary Blood NO GROWTH AFTER 24 HOURS Lab Studies 01/12/17 01/12/17 01/12/17 Range/Units 06:27 05:30 05:24 WBC 14.6 H (4.8-10.8) K/uL RBC 3.84 L (4.40-5.90) Mil/uL Hgb 11.0 L (12.0-18.0) g/dL Hct 34.1 L (35.0-51.0) % MCV 88.8 (80.0-94.0) fL MCH 28.6 (27.0-31.0) pg MCHC 32.2 L (33.0-37.0) g/dL RDW 13.8 (11.5-14.5) % Plt Count 154 (130-400) K/uL MPV 10.7 (7.2-11.7) fL Neut % (Auto) 85.7 H (50.0-75.0) % Lymph % (Auto) 5.2 L (20.0-40.0) % [place] % (Auto) 7.4 (0.0-10.0) % Eos % (Auto) 0.8 (0.0-4.0) % Baso % (Auto) 0.9 (0.0-2.0) % Neut # 12.5 H (1.8-7.0) K/uL Lymph # 0.8 L (1.0-4.3) K/uL [place] # 1.1 H (0.0-0.8) K/uL Eos # 0.1 (0.0-0.7) K/uL Baso # 0.1 (0.0-0.2) K/uL Neutrophils % (Manual) 88 H (50-75) % Band Neutrophils % 1 (0-2) % Lymphocytes % (Manual) 4 L (20-40) % Monocytes % (Manual) 6 (0-10) % Eosinophils % (Manual) 1 (0-4) % Toxic Granulation Present Platelet Estimate Normal (NORMAL) Large Platelets Present Polychromasia Slight Hypochromasia (manual) Slight Poikilocytosis (manual Slight Anisocytosis (manual) Slight Ovalocytes Slight Puncture Site Lr pCO2 50 H (35-45) mm/Hg pO2 77 L (80-100) mm/Hg HCO3 29.7 H (21-28) mmol/L ABG pH 7.41 (7.35-7.45) ABG Total CO2 33.2 H (22-28) mmol/L ABG O2 Saturation 98.2 H (95-98) % ABG Base Excess 6.1 H (-2.0-3.0) mmol/L ABG Hemoglobin 10.7 L (11.7-17.4) g/dL ABG Carboxyhemoglobin 1.9 H (0.5-1.5) % POC ABG HHb (Measured) 1.8 (0.0-5.0) % ABG Methemoglobin 0.8 (0.0-3.0) % Mono Test Pos A-a O2 Difference 146.0 mm/Hg Respiratory Index 1.9 Hgb O2 Saturation 95.6 (95.0-98.0) % Mechanical Rate 16 FiO2 40.0 % Tidal Volume 500 PEEP 7 Pressure Support Sodium 144 (132-148) mmol/L Potassium 3.1 L (3.6-5.2) mmol/L Chloride 106 (98-107) mmol/L Carbon Dioxide 31 H (22-30) mmol/L Anion Gap 10 (10-20) BUN 27 H (9-20) mg/dL Creatinine 1.3 (0.8-1.5) MG/DL Est GFR ( Amer) > 60 Est GFR (Non-Af Amer) 54 POC Glucose (mg/dL) 128 H (65-110) mg/dL Random Glucose 122 H (75-110) mg/dL Calcium 8.3 L (8.6-10.4) mg/dl Phosphorus 2.5 (2.5-4.5) mg/dL Magnesium 2.2 (1.6-2.3) mg/dL Total Bilirubin 1.2 (0.2-1.3) mg/dL AST 49 (17-59) U/L ALT 27 (21-72) U/L Alkaline Phosphatase 67 (38-126) U/L Total Protein 5.9 L (6.3-8.3) g/dL Albumin 2.8 L (3.5-5.0) g/dL Globulin 3.1 (2.2-3.9) gm/dL Albumin/Globulin Ratio 0.9 L (1.0-2.1) Procalcitonin (0.19-0.49) NG/ML 01/11/17 01/11/17 01/11/17 Range/Units 23:47 17:50 13:09 WBC (4.8-10.8) K/uL RBC (4.40-5.90) Mil/uL Hgb (12.0-18.0) g/dL Hct (35.0-51.0) % MCV (80.0-94.0) fL MCH (27.0-31.0) pg MCHC (33.0-37.0) g/dL RDW (11.5-14.5) % Plt Count (130-400) K/uL MPV (7.2-11.7) fL Neut % (Auto) (50.0-75.0) % Lymph % (Auto) (20.0-40.0) % [place] % (Auto) (0.0-10.0) % Eos % (Auto) (0.0-4.0) % Baso % (Auto) (0.0-2.0) % Neut # (1.8-7.0) K/uL Lymph # (1.0-4.3) K/uL [place] # (0.0-0.8) K/uL Eos # (0.0-0.7) K/uL Baso # (0.0-0.2) K/uL Neutrophils % (Manual) (50-75) % Band Neutrophils % (0-2) % Lymphocytes % (Manual) (20-40) % Monocytes % (Manual) (0-10) % Eosinophils % (Manual) (0-4) % Toxic Granulation Platelet Estimate (NORMAL) Large Platelets Polychromasia Hypochromasia (manual) Poikilocytosis (manual Anisocytosis (manual) Ovalocytes Puncture Site pCO2 (35-45) mm/Hg pO2 (80-100) mm/Hg HCO3 (21-28) mmol/L ABG pH (7.35-7.45) ABG Total CO2 (22-28) mmol/L ABG O2 Saturation (95-98) % ABG Base Excess (-2.0-3.0) mmol/L ABG Hemoglobin (11.7-17.4) g/dL ABG Carboxyhemoglobin (0.5-1.5) % POC ABG HHb (Measured) (0.0-5.0) % ABG Methemoglobin (0.0-3.0) % Mono Test A-a O2 Difference mm/Hg Respiratory Index Hgb O2 Saturation (95.0-98.0) % Mechanical Rate FiO2 % Tidal Volume PEEP Pressure Support Sodium (132-148) mmol/L Potassium (3.6-5.2) mmol/L Chloride (98-107) mmol/L Carbon Dioxide (22-30) mmol/L Anion Gap (10-20) BUN (9-20) mg/dL Creatinine (0.8-1.5) MG/DL Est GFR ( Amer) Est GFR (Non-Af Amer) POC Glucose (mg/dL) 143 H 119 H (65-110) mg/dL Random Glucose (75-110) mg/dL Calcium (8.6-10.4) mg/dl Phosphorus (2.5-4.5) mg/dL Magnesium (1.6-2.3) mg/dL Total Bilirubin (0.2-1.3) mg/dL AST (17-59) U/L ALT (21-72) U/L Alkaline Phosphatase (38-126) U/L Total Protein (6.3-8.3) g/dL Albumin (3.5-5.0) g/dL Globulin (2.2-3.9) gm/dL Albumin/Globulin Ratio (1.0-2.1) Procalcitonin 2.94 H (0.19-0.49) NG/ML 01/11/17 01/11/17 Range/Units 12:06 11:28 WBC (4.8-10.8) K/uL RBC (4.40-5.90) Mil/uL Hgb (12.0-18.0) g/dL Hct (35.0-51.0) % MCV (80.0-94.0) fL MCH (27.0-31.0) pg MCHC (33.0-37.0) g/dL RDW (11.5-14.5) % Plt Count (130-400) K/uL MPV (7.2-11.7) fL Neut % (Auto) (50.0-75.0) % Lymph % (Auto) (20.0-40.0) % [place] % (Auto) (0.0-10.0) % Eos % (Auto) (0.0-4.0) % Baso % (Auto) (0.0-2.0) % Neut # (1.8-7.0) K/uL Lymph # (1.0-4.3) K/uL [place] # (0.0-0.8) K/uL Eos # (0.0-0.7) K/uL Baso # (0.0-0.2) K/uL Neutrophils % (Manual) (50-75) % Band Neutrophils % (0-2) % Lymphocytes % (Manual) (20-40) % Monocytes % (Manual) (0-10) % Eosinophils % (Manual) (0-4) % Toxic Granulation Platelet Estimate (NORMAL) Large Platelets Polychromasia Hypochromasia (manual) Poikilocytosis (manual Anisocytosis (manual) Ovalocytes Puncture Site Rba pCO2 44 (35-45) mm/Hg pO2 66 L (80-100) mm/Hg HCO3 30.1 H (21-28) mmol/L ABG pH 7.46 H (7.35-7.45) ABG Total CO2 32.7 H (22-28) mmol/L ABG O2 Saturation 96.8 (95-98) % ABG Base Excess 6.7 H (-2.0-3.0) mmol/L ABG Hemoglobin 11.5 L (11.7-17.4) g/dL ABG Carboxyhemoglobin 2.1 H (0.5-1.5) % POC ABG HHb (Measured) 3.1 (0.0-5.0) % ABG Methemoglobin 0.9 (0.0-3.0) % Mono Test Na A-a O2 Difference 164.0 mm/Hg Respiratory Index 2.5 Hgb O2 Saturation 93.8 L (95.0-98.0) % Mechanical Rate FiO2 40.0 % Tidal Volume PEEP 7 Pressure Support 12 Sodium (132-148) mmol/L Potassium (3.6-5.2) mmol/L Chloride (98-107) mmol/L Carbon Dioxide (22-30) mmol/L Anion Gap (10-20) BUN (9-20) mg/dL Creatinine (0.8-1.5) MG/DL Est GFR ( Amer) Est GFR (Non-Af Amer) POC Glucose (mg/dL) 117 H (65-110) mg/dL Random Glucose (75-110) mg/dL Calcium (8.6-10.4) mg/dl Phosphorus (2.5-4.5) mg/dL Magnesium (1.6-2.3) mg/dL Total Bilirubin (0.2-1.3) mg/dL AST (17-59) U/L ALT (21-72) U/L Alkaline Phosphatase (38-126) U/L Total Protein (6.3-8.3) g/dL Albumin (3.5-5.0) g/dL Globulin (2.2-3.9) gm/dL Albumin/Globulin Ratio (1.0-2.1) Procalcitonin (0.19-0.49) NG/ML Laboratory Results - last 24 hr 01/11/17 01/11/17 01/11/17 11:28 12:06 13:09 WBC RBC Hgb Hct MCV MCH MCHC RDW Plt Count MPV Neut % (Auto) Lymph % (Auto) [place] % (Auto) Eos % (Auto) Baso % (Auto) Neut # Lymph # [place] # Eos # Baso # Neutrophils % (Manual) Band Neutrophils % Lymphocytes % (Manual) Monocytes % (Manual) Eosinophils % (Manual) Toxic Granulation Platelet Estimate Large Platelets Polychromasia Hypochromasia (manual) Poikilocytosis (manual Anisocytosis (manual) Ovalocytes Puncture Site Rba pCO2 44 pO2 66 L HCO3 30.1 H ABG pH 7.46 H ABG Total CO2 32.7 H ABG O2 Saturation 96.8 ABG Base Excess 6.7 H ABG Hemoglobin 11.5 L ABG Carboxyhemoglobin 2.1 H POC ABG HHb (Measured) 3.1 ABG Methemoglobin 0.9 Mono Test Na A-a O2 Difference 164.0 Respiratory Index 2.5 Hgb O2 Saturation 93.8 L Mechanical Rate FiO2 40.0 Tidal Volume PEEP 7 Pressure Support 12 Sodium Potassium Chloride Carbon Dioxide Anion Gap BUN Creatinine Est GFR ( Amer) Est GFR (Non-Af Amer) POC Glucose (mg/dL) 117 H Random Glucose Calcium Phosphorus Magnesium Total Bilirubin AST ALT Alkaline Phosphatase Total Protein Albumin Globulin Albumin/Globulin Ratio Procalcitonin 2.94 H 01/11/17 01/11/17 01/12/17 17:50 23:47 05:24 WBC RBC Hgb Hct MCV MCH MCHC RDW Plt Count MPV Neut % (Auto) Lymph % (Auto) [place] % (Auto) Eos % (Auto) Baso % (Auto) Neut # Lymph # [place] # Eos # Baso # Neutrophils % (Manual) Band Neutrophils % Lymphocytes % (Manual) Monocytes % (Manual) Eosinophils % (Manual) Toxic Granulation Platelet Estimate Large Platelets Polychromasia Hypochromasia (manual) Poikilocytosis (manual Anisocytosis (manual) Ovalocytes Puncture Site Lr pCO2 50 H pO2 77 L HCO3 29.7 H ABG pH 7.41 ABG Total CO2 33.2 H ABG O2 Saturation 98.2 H ABG Base Excess 6.1 H ABG Hemoglobin 10.7 L ABG Carboxyhemoglobin 1.9 H POC ABG HHb (Measured) 1.8 ABG Methemoglobin 0.8 Mono Test Pos A-a O2 Difference 146.0 Respiratory Index 1.9 Hgb O2 Saturation 95.6 Mechanical Rate 16 FiO2 40.0 Tidal Volume 500 PEEP 7 Pressure Support Sodium Potassium Chloride Carbon Dioxide Anion Gap BUN Creatinine Est GFR ( Amer) Est GFR (Non-Af Amer) POC Glucose (mg/dL) 119 H 143 H Random Glucose Calcium Phosphorus Magnesium Total Bilirubin AST ALT Alkaline Phosphatase Total Protein Albumin Globulin Albumin/Globulin Ratio Procalcitonin 01/12/17 01/12/17 05:30 06:27 WBC 14.6 H RBC 3.84 L Hgb 11.0 L Hct 34.1 L MCV 88.8 MCH 28.6 MCHC 32.2 L RDW 13.8 Plt Count 154 MPV 10.7 Neut % (Auto) 85.7 H Lymph % (Auto) 5.2 L [place] % (Auto) 7.4 Eos % (Auto) 0.8 Baso % (Auto) 0.9 Neut # 12.5 H Lymph # 0.8 L [place] # 1.1 H Eos # 0.1 Baso # 0.1 Neutrophils % (Manual) 88 H Band Neutrophils % 1 Lymphocytes % (Manual) 4 L Monocytes % (Manual) 6 Eosinophils % (Manual) 1 Toxic Granulation Present Platelet Estimate Normal Large Platelets Present Polychromasia Slight Hypochromasia (manual) Slight Poikilocytosis (manual Slight Anisocytosis (manual) Slight Ovalocytes Slight Puncture Site pCO2 pO2 HCO3 ABG pH ABG Total CO2 ABG O2 Saturation ABG Base Excess ABG Hemoglobin ABG Carboxyhemoglobin POC ABG HHb (Measured) ABG Methemoglobin Mono Test A-a O2 Difference Respiratory Index Hgb O2 Saturation Mechanical Rate FiO2 Tidal Volume PEEP Pressure Support Sodium 144 Potassium 3.1 L Chloride 106 Carbon Dioxide 31 H Anion Gap 10 BUN 27 H Creatinine 1.3 Est GFR ( Amer) > 60 Est GFR (Non-Af Amer) 54 POC Glucose (mg/dL) 128 H Random Glucose 122 H Calcium 8.3 L Phosphorus 2.5 Magnesium 2.2 Total Bilirubin 1.2 AST 49 ALT 27 Alkaline Phosphatase 67 Total Protein 5.9 L Albumin 2.8 L Globulin 3.1 Albumin/Globulin Ratio 0.9 L Procalcitonin Fingerstick Blood Sugar Results: 143 Review of Systems - Review of Systems All systems: reviewed and no additional remarkable complaints except Review of Systems: Patient is currently sedated with a mild dose. Responding to deep stimuli. Patient is somewhat agitated with the ventilator. Assessment/Plan (1) Atrial fibrillation Current Visit: Yes Status: Acute (2) Intraparenchymal hemorrhage of brain Assessment and plan: Patient with atrial fibrillation, on antibiotic regulation, complicated with acute hemorrhagic CVA. Patient is currently being followed up by neurology. Currently patient is on antiplatelets in spite of the bleeding. As per the neurology. We'll continue the current supportive care. We'll try a CPAP trial today. But patient is at high risk for reintubation today so we will just monitor closely. Current Visit: Yes Status: Acute
--- NOTE | 2017-01-12 11:13 | RAD ---
HISTORY: follow up COMPARISON: Chest x-ray performed 01/11/17 TECHNIQUE: Chest, one view. FINDINGS: Endotracheal tube terminates approximately 3.2 cm above the level the deya. Nasogastric tube extends expected location of the stomach. Examination limited by habitus and hypoinflation. LUNGS: Mild pulmonary venous congestion. Trace right pleural effusion. No definite pneumothorax. Please note that chest x-ray has limited sensitivity for the detection of pulmonary masses. CARDIOVASCULAR: Cardiomegaly. Atherosclerotic calcifications of the aorta. OSSEOUS STRUCTURES: No acute osseous abnormality identified. VISUALIZED UPPER ABDOMEN: Unremarkable. OTHER FINDINGS: None. IMPRESSION: Support lines and tubes as above. Mild pulmonary venous congestion. Trace right pleural effusion.
[2017-01-12] MEDS: Potassium Chloride 20 mEq 100 ML IVPB SCH ×2 (11:30→15:13)
[2017-01-12] MEDS: Albuterol-Ipratrop 3 mg / 0.5 (3 ml) UD INH SCH ×2 (13:35→19:47)
--- NOTE | 2017-01-12 15:50 | CP.PCM.PN ---
Subjective - Date & Time of Evaluation Date of Evaluation: 01/12/17 Time of Evaluation: 13:45 - Subjective Subjective: Mr. Duffy was seen and examined today at bedside. He was in NAD, but continues to be intubated due to heavy secretions and inability to maintain airway. There were no acute events overnight. Objective - Vital Signs/Intake and Output Vital Signs (last 24 hours): Temp Pulse Resp BP Pulse Ox 98.6 F 97 H 23 138/101 H 100 01/12/17 08:00 01/12/17 11:18 01/12/17 11:18 01/12/17 11:18 01/12/17 11:18 Intake and Output: 01/12/17 01/12/17 06:59 18:59 Intake Total 1683.0 875.3 Output Total 1375 260 Balance 308.0 615.3 - Medications Medications: Current Medications Acetaminophen (Tylenol 650mg/20.3ml Solution Ud) 650 mg PO Q6 PRN PRN Reason: Fever >100.4 F Last Admin: 01/12/17 00:24 Dose: 650 mg Albuterol/Ipratropium (Duoneb 3 Mg/0.5 Mg (3 Ml) Ud) 3 ml INH RQ6 [facility] Last Admin: 01/12/17 13:35 Dose: Not Given Aspirin (Aspirin Chewable) 81 mg PO DAILY [facility] Last Admin: 01/12/17 09:48 Dose: 81 mg Digoxin (Lanoxin) 0.1 mg IVP DAILY@1800 HERMILO Last Admin: 01/11/17 17:51 Dose: 0.1 mg Propofol (Diprivan) 100 mls @ 3.06 mls/hr IV .Q24H PRN; Protocol; 5 MCG/KG/MIN PRN Reason: TITRATE PER MD ORDER Last Admin: 01/12/17 11:31 Dose: 9.181 mls/hr Sodium Chloride (Sodium Chloride 0.9%) 1,000 mls @ 100 mls/hr IV .Q10H [facility] Last Admin: 01/12/17 15:13 Dose: 100 mls/hr Cefepime HCl 1 gm/ Dextrose 50 mls @ 100 mls/hr IVPB Q8H [facility] Last Admin: 01/12/17 11:32 Dose: 100 mls/hr Potassium Chloride (Potassium Chloride 20 Meq/100 Ml) 100 mls @ 50 mls/hr IVPB Q4 [facility] Stop: 01/12/17 17:59 Last Admin: 01/12/17 15:13 Dose: 50 mls/hr Insulin Human Regular (Novolin R) 0 unit SC Q6H HERMILO PRN Reason: Protocol Last Admin: 01/12/17 11:57 Dose: Not Given Pantoprazole Sodium (Protonix Inj) 40 mg IVP DAILY [facility] Last Admin: 01/12/17 09:48 Dose: 40 mg Pneumococcal Polyvalent Vaccine (Pneumovax 23 Vaccine) 0.5 ml SC .ONCE ONE Stop: 01/13/17 10:01 Rosuvastatin Calcium (Crestor) 10 mg PO HS [facility] Last Admin: 01/11/17 21:11 Dose: 10 mg - Labs Labs: 01/12/17 06:27 01/12/17 06:27 PT 12.3 SECONDS (9.7-12.2) H 01/09/17 09:29 INR 1.1 01/09/17 09:29 APTT 31 SECONDS (21-34) 01/09/17 09:29 - Constitutional Appears: Well - Head Exam Head Exam: ATRAUMATIC, NORMAL INSPECTION, NORMOCEPHALIC - Eye Exam Eye Exam: EOMI, Normal appearance, PERRL Pupil Exam: NORMAL ACCOMODATION, PERRL - ENT Exam ENT Exam: Mucous Membranes Moist, Normal Exam - Neck Exam Neck Exam: Full ROM, Normal Inspection. absent: Lymphadenopathy - Respiratory Exam Respiratory Exam: Rhonchi, Wheezes Additional comments: Intubated, breathing over the vent on CPAP. - Cardiovascular Exam Cardiovascular Exam: Irregular Rhythm, +S1, +S2. absent: Murmur - GI/Abdominal Exam GI & Abdominal Exam: Soft, Normal Bowel Sounds. absent: Tenderness - Neurological Exam Additional comments: Neurologically unchanged compared with yesterday's examination. Assessment and Plan (1) Intraparenchymal hemorrhage of brain Assessment & Plan: Stable appearance on follow-up CT head. Continue vent support, BP control, HOB elevated to 30 degrees, PT/OT when stable. Consider trach if he is not predicted to become extubated within the next week. Status: Acute (2) Atrial fibrillation Assessment & Plan: Continue aspirin 81 mg daily for stroke prevention. Discussed risk with family and staff, but benefit likely outweighs the risk in this condition. His CHADS- VASc score is 7-8, which corresponds to a 10-15% chance of ischemic stroke without anticoagulation or anti-platelet agents. Status: Acute
[2017-01-12] MEDS: Digoxin 500 mcg/2ml (0.5 mg/2ml) Inj IVP SCH (17:48)
[2017-01-13] MEDS ORDERED: Sodium Chloride 0.9% 1,000 ML IV SCH (01:45)
[2017-01-13] MEDS: Albuterol-Ipratrop 3 mg / 0.5 (3 ml) UD INH SCH ×4 (02:04→19:22)
[2017-01-13 05:38] LABS: ABG ALLEN TEST POS; ABG MECHANICAL RATE 16; ARTERIAL BLOOD HGB O2 SAT 94.6 % (95.0-98.0); ATERIAL BLOOD GAS PEEP 5; CARBOXYHEMOGLOBIN 1.7 % (0.5-1.5); DRAW SITE R; HHB 2.7 % (0.0-5.0); METHEMOGLOBIN 0.9 % (0.0-3.0)
[2017-01-13] MEDS: (Novolin R) Insulin Human Regular 100 units/ml vial SC SCH ×4 (06:33→17:46)
[2017-01-13 06:47] LABS: BASO # 0.1 K/uL (0.0-0.2); BASO % 0.7 % (0.0-2.0); EOS # 0.3 K/uL (0.0-0.7); EOS % 2.7 % (0.0-4.0); HEMATOCRIT 33.8 % (35.0-51.0); LYMPH # 0.6 K/uL (1.0-4.3); LYMPH % 5.3 % (20.0-40.0); MEAN CELL VOLUME 89.7 fL (80.0-94.0); MEAN CORPUSCULAR HEMOGLOBIN 28.5 pg (27.0-31.0); MEAN CORPUSCULAR HGB CONC 31.7 g/dL (33.0-37.0); MEAN PLATELET VOLUME 10.9 fL (7.2-11.7); MONO # 0.8 K/uL (0.0-0.8); PLATELET COUNT 167 K/uL (130-400); RED CELL DISTRIBUTION WIDTH 14.3 % (11.5-14.5); WHITE BLOOD COUNT 11.6 K/uL (4.8-10.8)
[2017-01-13 06:57] LABS: CHLORIDE 109 mmol/L (98-107); SODIUM 146 mmol/L (132-148)
[2017-01-13 06:58] LABS: POTASSIUM 3.9 mmol/L (3.6-5.2)
[2017-01-13 06:59] LABS: GFR AFRICAN-AMERICAN > 60
[2017-01-13 07:00] LABS: ALKALINE PHOSPHATASE 75 U/L (38-126); ALT/SGPT 25 U/L (21-72); AST/SGOT 27 U/L (17-59); BILIRUBIN,TOTAL 0.9 mg/dL (0.2-1.3); BLOOD UREA NITROGEN 29 mg/dL (9-20); CALCIUM 8.5 mg/dl (8.6-10.4); CARBON DIOXIDE 31 mmol/L (22-30); GLUCOSE,RANDOM 129 mg/dL (75-110); MAGNESIUM 2.4 mg/dL (1.6-2.3); PHOSPHOROUS 2.3 mg/dL (2.5-4.5)
[2017-01-13 07:09] LABS: ALB/GLOB RATIO 0.8 (1.0-2.1)
--- NOTE | 2017-01-13 07:10 | PN ---
DATE: 01/11/2017 The patient is supportive care. More awake. Gradual weaning. of stroke. Her long-term progn osis is guarded. I discussed this with family. . Tam Koroma MD cc: [id number] TT: 01/12/2017 00:43:10 Confirmation # [id number] Dictation # [id number]
--- NOTE | 2017-01-13 07:23 | PN ---
DATE: 01/12/2017 The patient is in ICU, still intubated, on ventilator. Supportive care. Lethargic, left-sided weak ness present. Continue ICU support, bronchodilators, suctioning. Tam Koroma MD cc: [id number] TT: 01/12/2017 15:49:18 Confirmation # [id number] Dictation # [id number]
--- NOTE | 2017-01-13 08:44 | RAD ---
HISTORY: vented COMPARISON: 01/12/2017 FINDINGS: LUNGS: Lines and tubes in stable position. Moderate to severe venous congestion with bibasilar airspace opacities and small bilateral pleural effusions. Biapical pleural thickening with upper lobe granulomatous changes. PLEURA: As above CARDIOVASCULAR: Cardiomegaly. Calcification at the aortic knob. OSSEOUS STRUCTURES: Degenerative changes in the spine and shoulders. VISUALIZED UPPER ABDOMEN: Normal. OTHER FINDINGS: None. IMPRESSION: Lines and tubes in stable position. Moderate to severe venous congestion with bibasilar airspace opacities and small bilateral pleural effusions. Biapical pleural thickening with upper lobe granulomatous changes.
[2017-01-13 09:41] LABS: BASOPHIL 1 % (0-2); EOSINOPHIL 4 % (0-4); NEUTROPHIL 88 % (50-75); TOTAL CELLS COUNTED 100
[2017-01-13] MEDS ORDERED: Pneumococcal 23-Valent Vaccine SC ONE (10:00)
[2017-01-13] MEDS: Dexmedetomidine Hydrochloride 200 MCG in Sodium Chloride 0.9% 48 ML IVPB PRN ×2 (10:46→18:04)
--- NOTE | 2017-01-13 13:19 | CP.PCM.PN ---
Subjective - Date & Time of Evaluation Date of Evaluation: 01/13/17 Time of Evaluation: 12:00 - Subjective Subjective: more active right sided weakness still there Objective - Vital Signs/Intake and Output Vital Signs (last 24 hours): Temp Pulse Resp BP Pulse Ox 98.8 F 73 14 140/82 100 01/13/17 12:00 01/13/17 12:18 01/13/17 12:18 01/13/17 12:18 01/13/17 12:18 Intake and Output: 01/13/17 01/13/17 06:59 18:59 Intake Total 1850.4 586.0 Output Total 460 190 Balance 1390.4 396.0 - Medications Medications: Current Medications Acetaminophen (Tylenol 650mg/20.3ml Solution Ud) 650 mg PO Q6 PRN PRN Reason: Fever >100.4 F Last Admin: 01/12/17 16:20 Dose: 650 mg Albuterol/Ipratropium (Duoneb 3 Mg/0.5 Mg (3 Ml) Ud) 3 ml INH RQ6 [facility] Last Admin: 01/13/17 07:54 Dose: 3 ml Aspirin (Aspirin Chewable) 81 mg PO DAILY [facility] Last Admin: 01/13/17 09:56 Dose: 81 mg Digoxin (Lanoxin) 0.1 mg IVP DAILY@1800 [facility] Last Admin: 01/12/17 17:48 Dose: 0.1 mg Cefepime HCl 1 gm/ Dextrose 50 mls @ 100 mls/hr IVPB Q8H [facility] Last Admin: 01/13/17 11:36 Dose: 100 mls/hr Dexmedetomidine HCl 200 mcg/ (Sodium Chloride) 50 mls @ 4.71 mls/hr IVPB TITR PRN; Protocol; 0.2 MCG/KG/HR PRN Reason: Sedation Last Admin: 01/13/17 10:46 Dose: 4.71 mls/hr Insulin Human Regular (Novolin R) 0 unit SC Q6H [facility] PRN Reason: Protocol Last Admin: 01/13/17 06:33 Dose: Not Given Pantoprazole Sodium (Protonix Inj) 40 mg IVP DAILY [facility] Last Admin: 01/13/17 09:58 Dose: 40 mg Potassium Phos/Sodium Phos (Neutra-Phos) 1 pkt PO TID [facility] Stop: 01/16/17 14:01 Rosuvastatin Calcium (Crestor) 10 mg PO [facility] Last Admin: 01/12/17 21:54 Dose: 10 mg - Labs Labs: 01/13/17 06:41 01/13/17 06:36 PT 12.3 SECONDS (9.7-12.2) H 01/09/17 09:29 INR 1.1 01/09/17 09:29 APTT 31 SECONDS (21-34) 01/09/17 09:29 - Constitutional Appears: Well - Head Exam Head Exam: ATRAUMATIC, NORMAL INSPECTION, NORMOCEPHALIC - Eye Exam Eye Exam: EOMI, Normal appearance, PERRL Pupil Exam: NORMAL ACCOMODATION, PERRL - ENT Exam ENT Exam: Mucous Membranes Moist, Normal Exam - Neck Exam Neck Exam: Full ROM, Normal Inspection. absent: Lymphadenopathy - Respiratory Exam Respiratory Exam: Decreased Breath Sounds - Cardiovascular Exam Cardiovascular Exam: REGULAR RHYTHM, +S1, +S2 - GI/Abdominal Exam GI & Abdominal Exam: Soft, Diminished Bowel Sounds - Rectal Exam Rectal Exam: Deferred Assessment and Plan - Assessment and Plan (Free Text) Plan: head elevation continue continue same meds as ordered on ventilation due to secretion f/u with neurologist and neurosurgen
--- NOTE | 2017-01-13 13:53 | CP.CCUPN ---
<Damaso Ng - Last Filed: 01/13/17 13:53> CCU Subjective - Physician Review Subjective (Free Text): 01/13/17 13:52 Pt seen and examined at bedside. CCU Objective - Vital Signs / Intake & Output Vital Signs (Last 4 hours): Vital Signs Temp Pulse Resp BP Pulse Ox 01/13/17 12:18 73 14 140/82 100 01/13/17 12:00 98.8 F 80 9 L 100 01/13/17 11:18 74 22 151/86 H 100 01/13/17 11:00 75 25 H 100 01/13/17 10:19 88 14 105/74 100 01/13/17 10:00 78 15 100 Intake and Output (Last 8hrs): Intake & Output 01/12/17 01/13/17 01/13/17 22:59 06:59 14:59 Intake Total 1403.6 1193.6 586.0 Output Total 255 320 190 Balance 1148.6 873.6 396.0 Weight 208 lb Intake: Intake, IV Amount 973.6 873.6 386.0 Left Antecubital 800 800 350 Left Forearm 100 8.4 Left Antecubital Y Port 73.6 73.6 27.6 Oral 50 Tube Feeding 320 320 200 Other 60 Output: Urine 255 320 190 Urethral (Early) 255 320 190 Other: # Bowel Movements 0 - Physical Exam Head: Positive for: Atraumatic, Normocephalic Extroacular Muscles: Positive for: EOMI Conjunctiva: Positive for: Injected Mouth: Positive for: Dry Respiratory/Chest: Positive for: Respiratory Distress (pt intubated, off sedation) Cardiovascular: Positive for: Normal S1, S2, Irregular Rhythm Abdomen: Positive for: Normal Bowel Sounds Lower Extremity: Positive for: Normal Inspection, NORMAL PULSES - Medications Active Medications: Active Medications Generic Name Dose Route Start Last Admin Trade Name Freq PRN Reason Stop Dose Admin Acetaminophen 650 mg 01/10/17 23:50 01/12/17 16:20 Tylenol 650mg/20.3ml Solution Ud PO 650 mg Q6 PRN Administration Fever >100.4 F Albuterol/Ipratropium 3 ml 01/12/17 14:00 01/13/17 07:54 Duoneb 3 Mg/0.5 Mg (3 Ml) Ud INH 3 ml RQ6 HERMILO Administration Aspirin 81 mg 01/12/17 10:00 01/13/17 09:56 Aspirin Chewable PO 81 mg DAILY HERMILO Administration Digoxin 0.1 mg 01/11/17 18:00 01/12/17 17:48 Lanoxin IVP 0.1 mg DAILY@1800 HERMILO Administration Cefepime HCl 1 gm/ Dextrose 50 mls @ 100 mls/hr 01/11/17 12:00 01/13/17 11:36 IVPB 100 mls/hr Q8H HERMILO Administration Dexmedetomidine HCl 200 mcg/ 50 mls @ 4.71 mls/hr 01/13/17 10:16 01/13/17 10:46 Sodium Chloride IVPB 4.71 mls/hr TITR PRN Administration Sedation Protocol 0.2 MCG/KG/HR Insulin Human Regular 0 unit 01/09/17 18:00 01/13/17 06:33 Novolin R SC Not Given Q6H HERMILO Protocol Pantoprazole Sodium 40 mg 01/09/17 12:15 01/13/17 09:58 Protonix Inj IVP 40 mg DAILY HERMILO Administration Potassium Phos/Sodium Phos 1 pkt 01/13/17 14:00 Neutra-Phos PO 01/16/17 14:01 TID HERMILO Rosuvastatin Calcium 10 mg 01/10/17 22:00 01/12/17 21:54 Crestor PO 10 mg HS HERMILO Administration - Patient Studies Lab Studies: Microbiology Studies 01/10/17 12:30 Blood Culture - Preliminary Blood NO GROWTH AFTER 48 HOURS 01/10/17 12:00 Blood Culture - Preliminary Blood NO GROWTH AFTER 48 HOURS 01/10/17 14:45 Gram Stain - Final Trachasp Sputum Culture - Final NORMAL SAPROPHYTIC AMANDO Lab Studies 01/13/17 01/13/17 01/13/17 Range/Units 12:05 06:41 06:36 WBC 11.6 H (4.8-10.8) K/uL RBC 3.76 L (4.40-5.90) Mil/uL Hgb 10.7 L (12.0-18.0) g/dL Hct 33.8 L (35.0-51.0) % MCV 89.7 (80.0-94.0) fL MCH 28.5 (27.0-31.0) pg MCHC 31.7 L (33.0-37.0) g/dL RDW 14.3 (11.5-14.5) % Plt Count 167 (130-400) K/uL MPV 10.9 (7.2-11.7) fL Neut % (Auto) 84.3 H (50.0-75.0) % Lymph % (Auto) 5.3 L (20.0-40.0) % [place] % (Auto) 7.0 (0.0-10.0) % Eos % (Auto) 2.7 (0.0-4.0) % Baso % (Auto) 0.7 (0.0-2.0) % Neut # 9.8 H (1.8-7.0) K/uL Lymph # 0.6 L (1.0-4.3) K/uL [place] # 0.8 (0.0-0.8) K/uL Eos # 0.3 (0.0-0.7) K/uL Baso # 0.1 (0.0-0.2) K/uL Neutrophils % (Manual) 88 H (50-75) % Band Neutrophils % 1 (0-2) % Lymphocytes % (Manual) 3 L (20-40) % Monocytes % (Manual) 3 (0-10) % Eosinophils % (Manual) 4 (0-4) % Basophils % (Manual) 1 (0-2) % Platelet Estimate Normal (NORMAL) Poikilocytosis (manual Slight Ovalocytes Slight Puncture Site pCO2 (35-45) mm/Hg pO2 (80-100) mm/Hg HCO3 (21-28) mmol/L ABG pH (7.35-7.45) ABG Total CO2 (22-28) mmol/L ABG O2 Saturation (95-98) % ABG Base Excess (-2.0-3.0) mmol/L ABG Hemoglobin (11.7-17.4) g/dL ABG Carboxyhemoglobin (0.5-1.5) % POC ABG HHb (Measured) (0.0-5.0) % ABG Methemoglobin (0.0-3.0) % Mono Test A-a O2 Difference mm/Hg Respiratory Index Hgb O2 Saturation (95.0-98.0) % Mechanical Rate FiO2 % Tidal Volume PEEP Sodium 146 (132-148) mmol/L Potassium 3.9 (3.6-5.2) mmol/L Chloride 109 H (98-107) mmol/L Carbon Dioxide 31 H (22-30) mmol/L Anion Gap 10 (10-20) BUN 29 H (9-20) mg/dL Creatinine 1.1 (0.8-1.5) MG/DL Est GFR ( Amer) > 60 Est GFR (Non-Af Amer) > 60 POC Glucose (mg/dL) 142 H (65-110) mg/dL Random Glucose 129 H (75-110) mg/dL Calcium 8.5 L (8.6-10.4) mg/dl Phosphorus 2.3 L (2.5-4.5) mg/dL Magnesium 2.4 H (1.6-2.3) mg/dL Total Bilirubin 0.9 (0.2-1.3) mg/dL AST 27 (17-59) U/L ALT 25 (21-72) U/L Alkaline Phosphatase 75 (38-126) U/L Total Protein 6.0 L (6.3-8.3) g/dL Albumin 2.7 L (3.5-5.0) g/dL Globulin 3.2 (2.2-3.9) gm/dL Albumin/Globulin Ratio 0.8 L (1.0-2.1) 01/13/17 01/13/17 01/13/17 Range/Units 05:39 05:28 00:00 WBC (4.8-10.8) K/uL RBC (4.40-5.90) Mil/uL Hgb (12.0-18.0) g/dL Hct (35.0-51.0) % MCV (80.0-94.0) fL MCH (27.0-31.0) pg MCHC (33.0-37.0) g/dL RDW (11.5-14.5) % Plt Count (130-400) K/uL MPV (7.2-11.7) fL Neut % (Auto) (50.0-75.0) % Lymph % (Auto) (20.0-40.0) % [place] % (Auto) (0.0-10.0) % Eos % (Auto) (0.0-4.0) % Baso % (Auto) (0.0-2.0) % Neut # (1.8-7.0) K/uL Lymph # (1.0-4.3) K/uL [place] # (0.0-0.8) K/uL Eos # (0.0-0.7) K/uL Baso # (0.0-0.2) K/uL Neutrophils % (Manual) (50-75) % Band Neutrophils % (0-2) % Lymphocytes % (Manual) (20-40) % Monocytes % (Manual) (0-10) % Eosinophils % (Manual) (0-4) % Basophils % (Manual) (0-2) % Platelet Estimate (NORMAL) Poikilocytosis (manual Ovalocytes Puncture Site R pCO2 51 H (35-45) mm/Hg pO2 72 L (80-100) mm/Hg HCO3 29.4 H (21-28) mmol/L ABG pH 7.40 (7.35-7.45) ABG Total CO2 33.2 H (22-28) mmol/L ABG O2 Saturation 97.2 (95-98) % ABG Base Excess 5.8 H (-2.0-3.0) mmol/L ABG Hemoglobin 10.8 L (11.7-17.4) g/dL ABG Carboxyhemoglobin 1.7 H (0.5-1.5) % POC ABG HHb (Measured) 2.7 (0.0-5.0) % ABG Methemoglobin 0.9 (0.0-3.0) % Mono Test Pos A-a O2 Difference 149.0 mm/Hg Respiratory Index 2.1 Hgb O2 Saturation 94.6 L (95.0-98.0) % Mechanical Rate 16 FiO2 40.0 % Tidal Volume 500 PEEP 5 Sodium (132-148) mmol/L Potassium (3.6-5.2) mmol/L Chloride (98-107) mmol/L Carbon Dioxide (22-30) mmol/L Anion Gap (10-20) BUN (9-20) mg/dL Creatinine (0.8-1.5) MG/DL Est GFR ( Amer) Est GFR (Non-Af Amer) POC Glucose (mg/dL) 145 H 140 H (65-110) mg/dL Random Glucose (75-110) mg/dL Calcium (8.6-10.4) mg/dl Phosphorus (2.5-4.5) mg/dL Magnesium (1.6-2.3) mg/dL Total Bilirubin (0.2-1.3) mg/dL AST (17-59) U/L ALT (21-72) U/L Alkaline Phosphatase (38-126) U/L Total Protein (6.3-8.3) g/dL Albumin (3.5-5.0) g/dL Globulin (2.2-3.9) gm/dL Albumin/Globulin Ratio (1.0-2.1) 01/12/17 Range/Units 17:47 WBC (4.8-10.8) K/uL RBC (4.40-5.90) Mil/uL Hgb (12.0-18.0) g/dL Hct (35.0-51.0) % MCV (80.0-94.0) fL MCH (27.0-31.0) pg MCHC (33.0-37.0) g/dL RDW (11.5-14.5) % Plt Count (130-400) K/uL MPV (7.2-11.7) fL Neut % (Auto) (50.0-75.0) % Lymph % (Auto) (20.0-40.0) % [place] % (Auto) (0.0-10.0) % Eos % (Auto) (0.0-4.0) % Baso % (Auto) (0.0-2.0) % Neut # (1.8-7.0) K/uL Lymph # (1.0-4.3) K/uL [place] # (0.0-0.8) K/uL Eos # (0.0-0.7) K/uL Baso # (0.0-0.2) K/uL Neutrophils % (Manual) (50-75) % Band Neutrophils % (0-2) % Lymphocytes % (Manual) (20-40) % Monocytes % (Manual) (0-10) % Eosinophils % (Manual) (0-4) % Basophils % (Manual) (0-2) % Platelet Estimate (NORMAL) Poikilocytosis (manual Ovalocytes Puncture Site pCO2 (35-45) mm/Hg pO2 (80-100) mm/Hg HCO3 (21-28) mmol/L ABG pH (7.35-7.45) ABG Total CO2 (22-28) mmol/L ABG O2 Saturation (95-98) % ABG Base Excess (-2.0-3.0) mmol/L ABG Hemoglobin (11.7-17.4) g/dL ABG Carboxyhemoglobin (0.5-1.5) % POC ABG HHb (Measured) (0.0-5.0) % ABG Methemoglobin (0.0-3.0) % Mono Test A-a O2 Difference mm/Hg Respiratory Index Hgb O2 Saturation (95.0-98.0) % Mechanical Rate FiO2 % Tidal Volume PEEP Sodium (132-148) mmol/L Potassium (3.6-5.2) mmol/L Chloride (98-107) mmol/L Carbon Dioxide (22-30) mmol/L Anion Gap (10-20) BUN (9-20) mg/dL Creatinine (0.8-1.5) MG/DL Est GFR ( Amer) Est GFR (Non-Af Amer) POC Glucose (mg/dL) 155 H (65-110) mg/dL Random Glucose (75-110) mg/dL Calcium (8.6-10.4) mg/dl Phosphorus (2.5-4.5) mg/dL Magnesium (1.6-2.3) mg/dL Total Bilirubin (0.2-1.3) mg/dL AST (17-59) U/L ALT (21-72) U/L Alkaline Phosphatase (38-126) U/L Total Protein (6.3-8.3) g/dL Albumin (3.5-5.0) g/dL Globulin (2.2-3.9) gm/dL Albumin/Globulin Ratio (1.0-2.1) Laboratory Results - last 24 hr 01/12/17 01/13/17 01/13/17 17:47 00:00 05:28 WBC RBC Hgb Hct MCV MCH MCHC RDW Plt Count MPV Neut % (Auto) Lymph % (Auto) [place] % (Auto) Eos % (Auto) Baso % (Auto) Neut # Lymph # [place] # Eos # Baso # Neutrophils % (Manual) Band Neutrophils % Lymphocytes % (Manual) Monocytes % (Manual) Eosinophils % (Manual) Basophils % (Manual) Platelet Estimate Poikilocytosis (manual Ovalocytes Puncture Site R pCO2 51 H pO2 72 L HCO3 29.4 H ABG pH 7.40 ABG Total CO2 33.2 H ABG O2 Saturation 97.2 ABG Base Excess 5.8 H ABG Hemoglobin 10.8 L ABG Carboxyhemoglobin 1.7 H POC ABG HHb (Measured) 2.7 ABG Methemoglobin 0.9 Mono Test Pos A-a O2 Difference 149.0 Respiratory Index 2.1 Hgb O2 Saturation 94.6 L Mechanical Rate 16 FiO2 40.0 Tidal Volume 500 PEEP 5 Sodium Potassium Chloride Carbon Dioxide Anion Gap BUN Creatinine Est GFR ( Amer) Est GFR (Non-Af Amer) POC Glucose (mg/dL) 155 H 140 H Random Glucose Calcium Phosphorus Magnesium Total Bilirubin AST ALT Alkaline Phosphatase Total Protein Albumin Globulin Albumin/Globulin Ratio 01/13/17 01/13/17 01/13/17 05:39 06:36 06:41 WBC 11.6 H RBC 3.76 L Hgb 10.7 L Hct 33.8 L MCV 89.7 MCH 28.5 MCHC 31.7 L RDW 14.3 Plt Count 167 MPV 10.9 Neut % (Auto) 84.3 H Lymph % (Auto) 5.3 L [place] % (Auto) 7.0 Eos % (Auto) 2.7 Baso % (Auto) 0.7 Neut # 9.8 H Lymph # 0.6 L [place] # 0.8 Eos # 0.3 Baso # 0.1 Neutrophils % (Manual) 88 H Band Neutrophils % 1 Lymphocytes % (Manual) 3 L Monocytes % (Manual) 3 Eosinophils % (Manual) 4 Basophils % (Manual) 1 Platelet Estimate Normal Poikilocytosis (manual Slight Ovalocytes Slight Puncture Site pCO2 pO2 HCO3 ABG pH ABG Total CO2 ABG O2 Saturation ABG Base Excess ABG Hemoglobin ABG Carboxyhemoglobin POC ABG HHb (Measured) ABG Methemoglobin Mono Test A-a O2 Difference Respiratory Index Hgb O2 Saturation Mechanical Rate FiO2 Tidal Volume PEEP Sodium 146 Potassium 3.9 Chloride 109 H Carbon Dioxide 31 H Anion Gap 10 BUN 29 H Creatinine 1.1 Est GFR ( Amer) > 60 Est GFR (Non-Af Amer) > 60 POC Glucose (mg/dL) 145 H Random Glucose 129 H Calcium 8.5 L Phosphorus 2.3 L Magnesium 2.4 H Total Bilirubin 0.9 AST 27 ALT 25 Alkaline Phosphatase 75 Total Protein 6.0 L Albumin 2.7 L Globulin 3.2 Albumin/Globulin Ratio 0.8 L 01/13/17 12:05 WBC RBC Hgb Hct MCV MCH MCHC RDW Plt Count MPV Neut % (Auto) Lymph % (Auto) [place] % (Auto) Eos % (Auto) Baso % (Auto) Neut # Lymph # [place] # Eos # Baso # Neutrophils % (Manual) Band Neutrophils % Lymphocytes % (Manual) Monocytes % (Manual) Eosinophils % (Manual) Basophils % (Manual) Platelet Estimate Poikilocytosis (manual Ovalocytes Puncture Site pCO2 pO2 HCO3 ABG pH ABG Total CO2 ABG O2 Saturation ABG Base Excess ABG Hemoglobin ABG Carboxyhemoglobin POC ABG HHb (Measured) ABG Methemoglobin Mono Test A-a O2 Difference Respiratory Index Hgb O2 Saturation Mechanical Rate FiO2 Tidal Volume PEEP Sodium Potassium Chloride Carbon Dioxide Anion Gap BUN Creatinine Est GFR ( Amer) Est GFR (Non-Af Amer) POC Glucose (mg/dL) 142 H Random Glucose Calcium Phosphorus Magnesium Total Bilirubin AST ALT Alkaline Phosphatase Total Protein Albumin Globulin Albumin/Globulin Ratio Fingerstick Blood Sugar Results: 145 Assessment/Plan - Assessment and Plan (Free Text) Assessment: 76 year old male of [place] descent, with PMHx of afib (on xarelto), presenting with new onset weakness and respiratory distress. Pt intubated and sedated. CT scan shows left basal intraparenchymal bleed. Plan: Neuro: Pt intubated, daily sedation vacation. - Propofol drip CT Head (01/09/17): Left intraparenchymal hemorrhage without midline shift (see full report) - repeat CT (01/09/17): stable hemorrhage (see full report) - repeat 24hr CT (01/10/17): no new hemorrhage. Redemonstrated large left BG hemorrhage surrounded by edema and/or necrotic brain tissue. Mild mass effect. ( see full report). Decreased movement of right side; minimal movement of RUE Dr Segura, Neurology, consulted: help appreciated - Start Precedex - PCC (Kcentra) treatment completed - head of bed to 30 degrees - Stable CT head: ASA 325mg PO Daily - Obtain MRI when pt stable Dr. Palmer, Neurosurgery, consulted: help appreciated - No intervention at this time Elevated temp (100.3) on 01/10 - Sputum Cx (01/10/17): Normal amando - Urine Cx (01/10/17): Enterococcus Faecalis - Blood cx (01/10/17): No growth for 48 hrs x 2 - MRSA (01/09/17): Not detected Endo: Hgb A1c: 6.5 Accuchecks ACHS ISS - low CV: Hx of atrial fibrillation - EKG on presentation: Afib w. RVR (rate 108). Left axis deviation. - Hold Home med Xarelto 20mg Daily Digoxin level (01/10/17): < 0.4 - Loaded, then restarted home Digoxin 0.1mg IVP Home meds: - Digoxin 0.125 mg PO daily, Diltiazem 240mg PO Daily, Lasix 40mg PO daily CAD - Crestor 10mg PO HS Pulm: Pt intubated. Still mild hypoxia, continuing diuresis for pulmonary edema. CXR (01/13/17) Moderate to severe venous congestion with bibasilar airspace opacities and small b/l pleural effusions. Biapical pleural thickening with upper lobe granulomatous changes (see full report) - Cefepime 1gm IV Q8H Duonebs Q6H HERMILO GI: Started tubefeeding: diabetisource f/u Dietary reccs LFTs WNL : BUN/Cr WNL NS @ 100 Hypophosphatemia: - 2.3 on AM labs - Start Neutraphos Early catheter in place Urine output improved Monitor I/Os ID: Leukocytosis: elevated, but downtrending - left shift - continue Cefepime for possible VAP Hem/Onc: On home Xarelto - Kcentra completed for stabilization of ICH. - can restart Xarelto or alternative mcfp stroke prophylaxis at least 6 weeks from bleed stabilization Mskltl: PT/OT eval Prophylaxis: DVT: SCDs VTE: contraindicated due to active BG bleed GI: Protonix IV <Vicente Carcamo - Last Filed: 01/13/17 17:16> CCU Subjective - Physician Review Events Since Last Encounter (Free Text): 01/13/17 17:14 Patient is having more edema today. He has a more positive balance today. The chest x-ray showing evidence of some worsening fluid overload status. Unable to do the CPAP trial today given the positive balance. Tachypnea noted on CPAP. Patient is definitely more awake today, he is also following simple commands CCU Objective - Vital Signs / Intake & Output Vital Signs (Last 4 hours): Vital Signs Pulse Resp BP Pulse Ox 01/13/17 15:18 63 16 141/80 100 01/13/17 15:00 61 26 H 100 01/13/17 14:18 60 15 141/93 H 100 01/13/17 14:17 59 L 16 100 01/13/17 14:00 76 16 100 01/13/17 13:18 69 17 124/73 100 Intake and Output (Last 8hrs): Intake & Output 01/13/17 01/13/17 01/13/17 06:59 14:59 22:59 Intake Total 1193.6 718.6 Output Total 320 305 Balance 873.6 413.6 Weight 208 lb Intake: Intake, IV Amount 873.6 398.6 Left Antecubital 800 350 Left Forearm 21.0 Left Antecubital Y Port 73.6 27.6 Tube Feeding 320 320 Output: Urine 320 305 Urethral (Early) 320 305 - Physical Exam Narrative Physical Exam (Free Text): 01/13/17 17:16 Chest good air entry, expiratory wheezing noted. Edema 1+ bilaterally noted. AIRPLANE TESTER left-sided moving very well. Opening his eyes. Agitated at times. - Medications Active Medications: Active Medications Generic Name Dose Route Start Last Admin Trade Name Freq PRN Reason Stop Dose Admin Acetaminophen 650 mg 01/10/17 23:50 01/12/17 16:20 Tylenol 650mg/20.3ml Solution Ud PO 650 mg Q6 PRN Administration Fever >100.4 F Albuterol/Ipratropium 3 ml 01/12/17 14:00 01/13/17 13:57 Duoneb 3 Mg/0.5 Mg (3 Ml) Ud INH 3 ml RQ6 HERMILO Administration Aspirin 81 mg 01/12/17 10:00 01/13/17 09:56 Aspirin Chewable PO 81 mg DAILY HERMILO Administration Digoxin 0.1 mg 01/11/17 18:00 01/12/17 17:48 Lanoxin IVP 0.1 mg DAILY@1800 HERMILO Administration Cefepime HCl 1 gm/ Dextrose 50 mls @ 100 mls/hr 01/11/17 12:00 01/13/17 11:36 IVPB 100 mls/hr Q8H HERMILO Administration Dexmedetomidine HCl 200 mcg/ 50 mls @ 4.71 mls/hr 01/13/17 10:16 01/13/17 10:46 Sodium Chloride IVPB 4.71 mls/hr TITR PRN Administration Sedation Protocol 0.2 MCG/KG/HR Insulin Human Regular 0 unit 01/09/17 18:00 01/13/17 12:00 Novolin R SC Not Given Q6H HERMILO Protocol Pantoprazole Sodium 40 mg 01/09/17 12:15 01/13/17 09:58 Protonix Inj IVP 40 mg DAILY HERMILO Administration Potassium Phos/Sodium Phos 1 pkt 01/13/17 14:00 01/13/17 15:20 Neutra-Phos PO 01/16/17 14:01 1 pkt TID HERMILO Administration Rosuvastatin Calcium 10 mg 01/10/17 22:00 01/12/17 21:54 Crestor PO 10 mg HS HERMILO Administration - Patient Studies Lab Studies: Microbiology Studies 01/10/17 12:30 Blood Culture - Preliminary Blood NO GROWTH AFTER 3 DAYS 01/10/17 12:00 Blood Culture - Preliminary Blood NO GROWTH AFTER 3 DAYS Lab Studies 01/13/17 01/13/17 01/13/17 Range/Units 12:05 06:41 06:36 WBC 11.6 H (4.8-10.8) K/uL RBC 3.76 L (4.40-5.90) Mil/uL Hgb 10.7 L (12.0-18.0) g/dL Hct 33.8 L (35.0-51.0) % MCV 89.7 (80.0-94.0) fL MCH 28.5 (27.0-31.0) pg MCHC 31.7 L (33.0-37.0) g/dL RDW 14.3 (11.5-14.5) % Plt Count 167 (130-400) K/uL MPV 10.9 (7.2-11.7) fL Neut % (Auto) 84.3 H (50.0-75.0) % Lymph % (Auto) 5.3 L (20.0-40.0) % [place] % (Auto) 7.0 (0.0-10.0) % Eos % (Auto) 2.7 (0.0-4.0) % Baso % (Auto) 0.7 (0.0-2.0) % Neut # 9.8 H (1.8-7.0) K/uL Lymph # 0.6 L (1.0-4.3) K/uL [place] # 0.8 (0.0-0.8) K/uL Eos # 0.3 (0.0-0.7) K/uL Baso # 0.1 (0.0-0.2) K/uL Neutrophils % (Manual) 88 H (50-75) % Band Neutrophils % 1 (0-2) % Lymphocytes % (Manual) 3 L (20-40) % Monocytes % (Manual) 3 (0-10) % Eosinophils % (Manual) 4 (0-4) % Basophils % (Manual) 1 (0-2) % Platelet Estimate Normal (NORMAL) Poikilocytosis (manual Slight Ovalocytes Slight Puncture Site pCO2 (35-45) mm/Hg pO2 (80-100) mm/Hg HCO3 (21-28) mmol/L ABG pH (7.35-7.45) ABG Total CO2 (22-28) mmol/L ABG O2 Saturation (95-98) % ABG Base Excess (-2.0-3.0) mmol/L ABG Hemoglobin (11.7-17.4) g/dL ABG Carboxyhemoglobin (0.5-1.5) % POC ABG HHb (Measured) (0.0-5.0) % ABG Methemoglobin (0.0-3.0) % Mono Test A-a O2 Difference mm/Hg Respiratory Index Hgb O2 Saturation (95.0-98.0) % Mechanical Rate FiO2 % Tidal Volume PEEP Sodium 146 (132-148) mmol/L Potassium 3.9 (3.6-5.2) mmol/L Chloride 109 H (98-107) mmol/L Carbon Dioxide 31 H (22-30) mmol/L Anion Gap 10 (10-20) BUN 29 H (9-20) mg/dL Creatinine 1.1 (0.8-1.5) MG/DL Est GFR ( Amer) > 60 Est GFR (Non-Af Amer) > 60 POC Glucose (mg/dL) 142 H (65-110) mg/dL Random Glucose 129 H (75-110) mg/dL Calcium 8.5 L (8.6-10.4) mg/dl Phosphorus 2.3 L (2.5-4.5) mg/dL Magnesium 2.4 H (1.6-2.3) mg/dL Total Bilirubin 0.9 (0.2-1.3) mg/dL AST 27 (17-59) U/L ALT 25 (21-72) U/L Alkaline Phosphatase 75 (38-126) U/L Total Protein 6.0 L (6.3-8.3) g/dL Albumin 2.7 L (3.5-5.0) g/dL Globulin 3.2 (2.2-3.9) gm/dL Albumin/Globulin Ratio 0.8 L (1.0-2.1) 01/13/17 01/13/17 01/13/17 Range/Units 05:39 05:28 00:00 WBC (4.8-10.8) K/uL RBC (4.40-5.90) Mil/uL Hgb (12.0-18.0) g/dL Hct (35.0-51.0) % MCV (80.0-94.0) fL MCH (27.0-31.0) pg MCHC (33.0-37.0) g/dL RDW (11.5-14.5) % Plt Count (130-400) K/uL MPV (7.2-11.7) fL Neut % (Auto) (50.0-75.0) % Lymph % (Auto) (20.0-40.0) % [place] % (Auto) (0.0-10.0) % Eos % (Auto) (0.0-4.0) % Baso % (Auto) (0.0-2.0) % Neut # (1.8-7.0) K/uL Lymph # (1.0-4.3) K/uL [place] # (0.0-0.8) K/uL Eos # (0.0-0.7) K/uL Baso # (0.0-0.2) K/uL Neutrophils % (Manual) (50-75) % Band Neutrophils % (0-2) % Lymphocytes % (Manual) (20-40) % Monocytes % (Manual) (0-10) % Eosinophils % (Manual) (0-4) % Basophils % (Manual) (0-2) % Platelet Estimate (NORMAL) Poikilocytosis (manual Ovalocytes Puncture Site R pCO2 51 H (35-45) mm/Hg pO2 72 L (80-100) mm/Hg HCO3 29.4 H (21-28) mmol/L ABG pH 7.40 (7.35-7.45) ABG Total CO2 33.2 H (22-28) mmol/L ABG O2 Saturation 97.2 (95-98) % ABG Base Excess 5.8 H (-2.0-3.0) mmol/L ABG Hemoglobin 10.8 L (11.7-17.4) g/dL ABG Carboxyhemoglobin 1.7 H (0.5-1.5) % POC ABG HHb (Measured) 2.7 (0.0-5.0) % ABG Methemoglobin 0.9 (0.0-3.0) % Mono Test Pos A-a O2 Difference 149.0 mm/Hg Respiratory Index 2.1 Hgb O2 Saturation 94.6 L (95.0-98.0) % Mechanical Rate 16 FiO2 40.0 % Tidal Volume 500 PEEP 5 Sodium (132-148) mmol/L Potassium (3.6-5.2) mmol/L Chloride (98-107) mmol/L Carbon Dioxide (22-30) mmol/L Anion Gap (10-20) BUN (9-20) mg/dL Creatinine (0.8-1.5) MG/DL Est GFR ( Amer) Est GFR (Non-Af Amer) POC Glucose (mg/dL) 145 H 140 H (65-110) mg/dL Random Glucose (75-110) mg/dL Calcium (8.6-10.4) mg/dl Phosphorus (2.5-4.5) mg/dL Magnesium (1.6-2.3) mg/dL Total Bilirubin (0.2-1.3) mg/dL AST (17-59) U/L ALT (21-72) U/L Alkaline Phosphatase (38-126) U/L Total Protein (6.3-8.3) g/dL Albumin (3.5-5.0) g/dL Globulin (2.2-3.9) gm/dL Albumin/Globulin Ratio (1.0-2.1) // Range/Units 17:47 WBC (4.8-10.8) K/uL RBC (4.40-5.90) Mil/uL Hgb (12.0-18.0) g/dL Hct (35.0-51.0) % MCV (80.0-94.0) fL MCH (27.0-31.0) pg MCHC (33.0-37.0) g/dL RDW (11.5-14.5) % Plt Count (130-400) K/uL MPV (7.2-11.7) fL Neut % (Auto) (50.0-75.0) % Lymph % (Auto) (20.0-40.0) % [place] % (Auto) (0.0-10.0) % Eos % (Auto) (0.0-4.0) % Baso % (Auto) (0.0-2.0) % Neut # (1.8-7.0) K/uL Lymph # (1.0-4.3) K/uL [place] # (0.0-0.8) K/uL Eos # (0.0-0.7) K/uL Baso # (0.0-0.2) K/uL Neutrophils % (Manual) (50-75) % Band Neutrophils % (0-2) % Lymphocytes % (Manual) (20-40) % Monocytes % (Manual) (0-10) % Eosinophils % (Manual) (0-4) % Basophils % (Manual) (0-2) % Platelet Estimate (NORMAL) Poikilocytosis (manual Ovalocytes Puncture Site pCO2 (35-45) mm/Hg pO2 (80-100) mm/Hg HCO3 (21-28) mmol/L ABG pH (7.35-7.45) ABG Total CO2 (22-28) mmol/L ABG O2 Saturation (95-98) % ABG Base Excess (-2.0-3.0) mmol/L ABG Hemoglobin (11.7-17.4) g/dL ABG Carboxyhemoglobin (0.5-1.5) % POC ABG HHb (Measured) (0.0-5.0) % ABG Methemoglobin (0.0-3.0) % Mono Test A-a O2 Difference mm/Hg Respiratory Index Hgb O2 Saturation (95.0-98.0) % Mechanical Rate FiO2 % Tidal Volume PEEP Sodium (132-148) mmol/L Potassium (3.6-5.2) mmol/L Chloride (98-107) mmol/L Carbon Dioxide (22-30) mmol/L Anion Gap (10-20) BUN (9-20) mg/dL Creatinine (0.8-1.5) MG/DL Est GFR ( Amer) Est GFR (Non-Af Amer) POC Glucose (mg/dL) 155 H (65-110) mg/dL Random Glucose (75-110) mg/dL Calcium (8.6-10.4) mg/dl Phosphorus (2.5-4.5) mg/dL Magnesium (1.6-2.3) mg/dL Total Bilirubin (0.2-1.3) mg/dL AST (17-59) U/L ALT (21-72) U/L Alkaline Phosphatase (38-126) U/L Total Protein (6.3-8.3) g/dL Albumin (3.5-5.0) g/dL Globulin (2.2-3.9) gm/dL Albumin/Globulin Ratio (1.0-2.1) Laboratory Results - last 24 hr 01/12/17 01/13/17 01/13/17 17:47 00:00 05:28 WBC RBC Hgb Hct MCV MCH MCHC RDW Plt Count MPV Neut % (Auto) Lymph % (Auto) [place] % (Auto) Eos % (Auto) Baso % (Auto) Neut # Lymph # [place] # Eos # Baso # Neutrophils % (Manual) Band Neutrophils % Lymphocytes % (Manual) Monocytes % (Manual) Eosinophils % (Manual) Basophils % (Manual) Platelet Estimate Poikilocytosis (manual Ovalocytes Puncture Site R pCO2 51 H pO2 72 L HCO3 29.4 H ABG pH 7.40 ABG Total CO2 33.2 H ABG O2 Saturation 97.2 ABG Base Excess 5.8 H ABG Hemoglobin 10.8 L ABG Carboxyhemoglobin 1.7 H POC ABG HHb (Measured) 2.7 ABG Methemoglobin 0.9 Mono Test Pos A-a O2 Difference 149.0 Respiratory Index 2.1 Hgb O2 Saturation 94.6 L Mechanical Rate 16 FiO2 40.0 Tidal Volume 500 PEEP 5 Sodium Potassium Chloride Carbon Dioxide Anion Gap BUN Creatinine Est GFR ( Amer) Est GFR (Non-Af Amer) POC Glucose (mg/dL) 155 H 140 H Random Glucose Calcium Phosphorus Magnesium Total Bilirubin AST ALT Alkaline Phosphatase Total Protein Albumin Globulin Albumin/Globulin Ratio 01/13/17 01/13/17 01/13/17 05:39 06:36 06:41 WBC 11.6 H RBC 3.76 L Hgb 10.7 L Hct 33.8 L MCV 89.7 MCH 28.5 MCHC 31.7 L RDW 14.3 Plt Count 167 MPV 10.9 Neut % (Auto) 84.3 H Lymph % (Auto) 5.3 L [place] % (Auto) 7.0 Eos % (Auto) 2.7 Baso % (Auto) 0.7 Neut # 9.8 H Lymph # 0.6 L [place] # 0.8 Eos # 0.3 Baso # 0.1 Neutrophils % (Manual) 88 H Band Neutrophils % 1 Lymphocytes % (Manual) 3 L Monocytes % (Manual) 3 Eosinophils % (Manual) 4 Basophils % (Manual) 1 Platelet Estimate Normal Poikilocytosis (manual Slight Ovalocytes Slight Puncture Site pCO2 pO2 HCO3 ABG pH ABG Total CO2 ABG O2 Saturation ABG Base Excess ABG Hemoglobin ABG Carboxyhemoglobin POC ABG HHb (Measured) ABG Methemoglobin Mono Test A-a O2 Difference Respiratory Index Hgb O2 Saturation Mechanical Rate FiO2 Tidal Volume PEEP Sodium 146 Potassium 3.9 Chloride 109 H Carbon Dioxide 31 H Anion Gap 10 BUN 29 H Creatinine 1.1 Est GFR ( Amer) > 60 Est GFR (Non-Af Amer) > 60 POC Glucose (mg/dL) 145 H Random Glucose 129 H Calcium 8.5 L Phosphorus 2.3 L Magnesium 2.4 H Total Bilirubin 0.9 AST 27 ALT 25 Alkaline Phosphatase 75 Total Protein 6.0 L Albumin 2.7 L Globulin 3.2 Albumin/Globulin Ratio 0.8 L 01/13/17 12:05 WBC RBC Hgb Hct MCV MCH MCHC RDW Plt Count MPV Neut % (Auto) Lymph % (Auto) [place] % (Auto) Eos % (Auto) Baso % (Auto) Neut # Lymph # [place] # Eos # Baso # Neutrophils % (Manual) Band Neutrophils % Lymphocytes % (Manual) Monocytes % (Manual) Eosinophils % (Manual) Basophils % (Manual) Platelet Estimate Poikilocytosis (manual Ovalocytes Puncture Site pCO2 pO2 HCO3 ABG pH ABG Total CO2 ABG O2 Saturation ABG Base Excess ABG Hemoglobin ABG Carboxyhemoglobin POC ABG HHb (Measured) ABG Methemoglobin Mono Test A-a O2 Difference Respiratory Index Hgb O2 Saturation Mechanical Rate FiO2 Tidal Volume PEEP Sodium Potassium Chloride Carbon Dioxide Anion Gap BUN Creatinine Est GFR ( Amer) Est GFR (Non-Af Amer) POC Glucose (mg/dL) 142 H Random Glucose Calcium Phosphorus Magnesium Total Bilirubin AST ALT Alkaline Phosphatase Total Protein Albumin Globulin Albumin/Globulin Ratio Review of Systems - Review of Systems All systems: reviewed and no additional remarkable complaints except Assessment/Plan (1) Atrial fibrillation Assessment and plan: we'll attempt to wean the patient in 1 or 2 days. Maintain negative balance and will follow the patient Current Visit: Yes Status: Acute (2) Intraparenchymal hemorrhage of brain Current Visit: Yes Status: Acute
[2017-01-13] MEDS: Potassium & Sodium Phosphate PO SCH ×2 (15:20→17:29)
[2017-01-13] MEDS: Digoxin 500 mcg/2ml (0.5 mg/2ml) Inj IVP SCH (17:28)
[2017-01-14] MEDS: Dexmedetomidine Hydrochloride 200 MCG in Sodium Chloride 0.9% 48 ML IVPB PRN ×5 (00:16→18:52)
[2017-01-14] MEDS: (Novolin R) Insulin Human Regular 100 units/ml vial SC SCH ×4 (00:21→18:15)
[2017-01-14] MEDS: Albuterol-Ipratrop 3 mg / 0.5 (3 ml) UD INH SCH ×4 (01:22→19:51)
[2017-01-14 05:23] LABS: ABG ALLEN TEST POS; ABG MECHANICAL RATE 16; ARTERIAL BLOOD HGB O2 SAT 94.6 % (95.0-98.0); ATERIAL BLOOD GAS PEEP 5; CARBOXYHEMOGLOBIN 1.8 % (0.5-1.5); DRAW SITE RR; HHB 2.1 % (0.0-5.0); METHEMOGLOBIN 1.4 % (0.0-3.0)
[2017-01-14 06:43] LABS: BASO # 0.1 K/uL (0.0-0.2); EOS # 0.2 K/uL (0.0-0.7); EOS % 1.7 % (0.0-4.0); HEMATOCRIT 36.2 % (35.0-51.0); LYMPH # 0.5 K/uL (1.0-4.3); LYMPH % 5.5 % (20.0-40.0); MEAN CELL VOLUME 89.7 fL (80.0-94.0); MEAN CORPUSCULAR HEMOGLOBIN 28.5 pg (27.0-31.0); MEAN CORPUSCULAR HGB CONC 31.8 g/dL (33.0-37.0); MEAN PLATELET VOLUME 11.1 fL (7.2-11.7); MONO # 0.7 K/uL (0.0-0.8); MONO % 7.4 % (0.0-10.0); PLATELET COUNT 185 K/uL (130-400); RED CELL DISTRIBUTION WIDTH 14.3 % (11.5-14.5); WHITE BLOOD COUNT 9.9 K/uL (4.8-10.8)
[2017-01-14 06:46] LABS: CHLORIDE 110 mmol/L (98-107); POTASSIUM 4.2 mmol/L (3.6-5.2); SODIUM 150 mmol/L (132-148)
[2017-01-14 06:48] LABS: ALB/GLOB RATIO 0.9 (1.0-2.1); ALKALINE PHOSPHATASE 95 U/L (38-126); AST/SGOT 31 U/L (17-59); BILIRUBIN,TOTAL 0.6 mg/dL (0.2-1.3); CARBON DIOXIDE 30 mmol/L (22-30); GFR AFRICAN-AMERICAN > 60; TOTAL PROTEIN 6.6 g/dL (6.3-8.3)
[2017-01-14 06:49] LABS: ALT/SGPT 31 U/L (21-72); BLOOD UREA NITROGEN 30 mg/dL (9-20); CALCIUM 9.4 mg/dl (8.6-10.4); GLUCOSE,RANDOM 159 mg/dL (75-110); MAGNESIUM 2.9 mg/dL (1.6-2.3); PHOSPHOROUS 2.5 mg/dL (2.5-4.5)
--- NOTE | 2017-01-14 07:47 | CARD ---
APPROVED REPORT EXAM: Two-dimensional and M-mode echocardiogram with Doppler and color Doppler. Other Information Quality : GoodRhythm : NSR INDICATION Atrial Fibrillation STROKE M-Mode DIMENSIONS RVDd2.47 (2.1-3.2cm)Left Atrium (MM)5.32 (2.5-4.0cm) IVSd1.20 (0.7-1.1cm)Aortic Root2.89 (2.2-3.7cm) LVDd4.82 (4.0-5.6cm)Aortic Cusp Exc.1.90 (1.5-2.0cm) PWd1.32 (0.7-1.1cm)FS (%) 38 % LVDs3.01 (2.0-3.8cm)LVEF (%)68 (>50%) Aortic Valve AoV Peak Hqetzils268.9cm/Eron Peak GR.7mmHg Mitral Valve MV E Lnplhcss800.9cm/sMV A Hkfyecno61.3cm/sE/A ratio2.4 TDI E/Lateral E'0.0E/Medial E'0.0 Tricuspid Valve TR Peak [id number]/sTR Peak [id number] LEFT VENTRICLE The left ventricle is normal size. There is mild to moderate concentric left ventricular hypertrophy. The left ventricular function is normal. The left ventricular ejection fraction is within the normal range. The Ejection Fraction is >55%. No regional wall motion abnormalities noted. The left ventricular diastolic function is normal. No left ventricle thrombus noted on this study. There is no ventricular septal defect visualized. There is no left ventricular aneurysm. There is no mass noted in the left ventricle. RIGHT VENTRICLE The right ventricle is normal size. There is normal right ventricular wall thickness. The right ventricular systolic function is normal. ATRIA The left atrium is moderately dilated. The right atrium size is normal. The interatrial septum is intact with no evidence for an atrial septal defect. AORTIC VALVE The aortic valve is normal in structure and function. There is trace to mild aortic regurgitation. There is no aortic valvular stenosis. There is no aortic valvular vegetation. MITRAL VALVE The mitral valve is normal in structure and function. There is no evidence of mitral valve prolapse. There is no mitral valve stenosis. Mitral regurgitation is moderate. TRICUSPID VALVE The tricuspid valve is normal in structure and function. There is mild to moderate tricuspid regurgitation. Right ventricular systolic pressure is estimated at greater than 60 mmHg. There is moderate-severe pulmonary hypertension. There is no tricuspid valve prolapse or vegetation. There is no tricuspid valve stenosis. PULMONIC VALVE The pulmonary valve is normal in structure and function. There is no pulmonic valvular regurgitation. There is no pulmonic valvular stenosis. GREAT VESSELS The aortic root is normal in size. The ascending aorta is normal in size. The pulmonary artery is normal. The IVC is normal in size and collapses >50% with inspiration. PERICARDIAL EFFUSION The pericardium appears normal. There is no pleural effusion. <Conclusion> There is mild to moderate concentric left ventricular hypertrophy. The left ventricular ejection fraction is within the normal range. The Ejection Fraction is >55%. The left atrium is moderately dilated. There is trace to mild aortic regurgitation. Mitral regurgitation is moderate. There is mild to moderate tricuspid regurgitation. Right ventricular systolic pressure is estimated at greater than 60 mmHg. There is moderate-severe pulmonary hypertension.
[2017-01-14 08:36] LABS: NEUTROPHIL 90 % (50-75); TOTAL CELLS COUNTED 100
[2017-01-14] MEDS: Potassium & Sodium Phosphate PO SCH ×3 (10:31→18:14)
--- NOTE | 2017-01-14 11:04 | CP.PCM.PN ---
Subjective - Date & Time of Evaluation Date of Evaluation: 01/14/17 Time of Evaluation: 13:20 - Subjective Subjective: clinically same Objective - Vital Signs/Intake and Output Vital Signs (last 24 hours): Temp Pulse Resp BP Pulse Ox 97.9 F 56 L 20 153/96 H 100 01/14/17 00:00 01/14/17 07:18 01/14/17 07:18 01/14/17 07:18 01/14/17 06:20 Intake and Output: 01/14/17 01/14/17 06:59 18:59 Intake Total 732.0 14.1 Output Total 610 Balance 122.0 14.1 - Medications Medications: Current Medications Acetaminophen (Tylenol 650mg/20.3ml Solution Ud) 650 mg PO Q6 PRN PRN Reason: Fever >100.4 F Last Admin: 01/12/17 16:20 Dose: 650 mg Albuterol/Ipratropium (Duoneb 3 Mg/0.5 Mg (3 Ml) Ud) 3 ml INH RQ6 [facility] Last Admin: 01/14/17 08:04 Dose: 3 ml Aspirin (Aspirin Chewable) 81 mg PO DAILY [facility] Last Admin: 01/14/17 10:32 Dose: 81 mg Digoxin (Lanoxin) 0.1 mg IVP DAILY@1800 [facility] Last Admin: 01/13/17 17:28 Dose: 0.1 mg Cefepime HCl 1 gm/ Dextrose 50 mls @ 100 mls/hr IVPB Q8H [facility] Last Admin: 01/14/17 03:52 Dose: 100 mls/hr Dexmedetomidine HCl 200 mcg/ (Sodium Chloride) 50 mls @ 4.71 mls/hr IVPB TITR PRN; Protocol; 0.2 MCG/KG/HR PRN Reason: Sedation Last Admin: 01/14/17 08:23 Dose: 11.79 mls/hr Azithromycin 500 mg/ Sodium (Chloride) 250 mls @ 250 mls/hr IVPB DAILY@1100 [facility] Insulin Human Regular (Novolin R) 0 unit SC Q6H [facility] PRN Reason: Protocol Last Admin: 01/14/17 05:28 Dose: 1 unit Pantoprazole Sodium (Protonix Inj) 40 mg IVP DAILY [facility] Last Admin: 01/14/17 10:28 Dose: 40 mg Potassium Phos/Sodium Phos (Neutra-Phos) 1 pkt PO TID [facility] Stop: 01/16/17 14:01 Last Admin: 01/14/17 10:31 Dose: 1 pkt Rosuvastatin Calcium (Crestor) 10 mg PO HS [facility] Last Admin: 01/13/17 21:00 Dose: 10 mg - Labs Labs: 01/14/17 06:35 01/14/17 04:00 PT 12.3 SECONDS (9.7-12.2) H 01/09/17 09:29 INR 1.1 01/09/17 09:29 APTT 31 SECONDS (21-34) 01/09/17 09:29 - Constitutional Appears: Well - Head Exam Head Exam: ATRAUMATIC, NORMAL INSPECTION, NORMOCEPHALIC - Eye Exam Eye Exam: EOMI, Normal appearance, PERRL Pupil Exam: NORMAL ACCOMODATION, PERRL - ENT Exam ENT Exam: Mucous Membranes Moist, Normal Exam - Neck Exam Neck Exam: Full ROM, Normal Inspection. absent: Lymphadenopathy - Respiratory Exam Respiratory Exam: Decreased Breath Sounds - Cardiovascular Exam Cardiovascular Exam: REGULAR RHYTHM, +S1, +S2 - GI/Abdominal Exam GI & Abdominal Exam: Soft, Diminished Bowel Sounds - Rectal Exam Rectal Exam: Deferred Assessment and Plan - Assessment and Plan (Free Text) Plan: continue same meds as ordered f/u with neurologist and neurosurgen
[2017-01-14] MEDS: Azithromycin 500 MG in Sodium Chloride 0.9% 250 ML IVPB SCH (11:55)
--- NOTE | 2017-01-14 12:49 | CP.CCUPN ---
<Damaso Ng - Last Filed: 01/14/17 17:25> CCU Subjective - Physician Review Subjective (Free Text): 01/14/17 14:05 Pt seen and examined at bedside. Nursing reports no acute events overnight. No change in pt clinical status. Pt opens his eyes occasionally, and will triangulate sound of voice. When asked if he speaks [place]ian, pt nods his head, but does not respond to other directions. He is witnessed attempting to remove ETT tube with mittened left hand, but no movement of right upper extremity. Pt remains intubated, thus no ROS could be obtained. Critical Care Time Spent (in minutes): 40 CCU Objective - Vital Signs / Intake & Output Intake and Output (Last 8hrs): Intake & Output 01/13/17 01/14/17 01/14/17 22:59 06:59 14:59 Intake Total 396.4 474.0 106.0 Output Total 310 410 35 Balance 86.4 64.0 71.0 Weight 212 lb Intake: Intake, IV Amount 56.4 154.0 26.0 Right Antecubital 28.2 26.0 Left Forearm 56.4 125.8 Tube Feeding 280 320 80 Other 60 Output: Urine 310 410 35 Urethral (Sanchez) 310 410 35 - Physical Exam Head: Positive for: Atraumatic, Normocephalic Extroacular Muscles: Positive for: EOMI Conjunctiva: Positive for: Injected Mouth: Positive for: Dry Respiratory/Chest: Positive for: Decreased Breath Sounds (especially on right side base), Other (Pt ventilated and sedated). Negative for: Accessory Muscle Use Cardiovascular: Positive for: Normal S1, S2, Irregular Rhythm Abdomen: Positive for: Normal Bowel Sounds Genitourinary Male: Positive for: Other (sanchez catheter in place) Upper Extremity: Positive for: Edema (rt hand swollen), Other (Right hand swollen due to infiltrated IV) Lower Extremity: Positive for: Edema (1+ pitting edema), NORMAL PULSES Neurological: Positive for: Other. Negative for: CN II-XII Intact (Pt sedated) , Speech Normal Skin: Positive for: Warm, Dry Psychiatric: Negative for: Alert, Oriented x 3 - Medications Active Medications: Active Medications Generic Name Dose Route Start Last Admin Trade Name Freq PRN Reason Stop Dose Admin Acetaminophen 650 mg 01/10/17 23:50 01/12/17 16:20 Tylenol 650mg/20.3ml Solution Ud PO 650 mg Q6 PRN Administration Fever >100.4 F Albuterol/Ipratropium 3 ml 01/12/17 14:00 01/14/17 08:04 Duoneb 3 Mg/0.5 Mg (3 Ml) Ud INH 3 ml RQ6 HERMILO Administration Aspirin 81 mg 01/12/17 10:00 01/14/17 10:32 Aspirin Chewable PO 81 mg DAILY HERMILO Administration Digoxin 0.1 mg 01/11/17 18:00 01/13/17 17:28 Lanoxin IVP 0.1 mg DAILY@1800 HERMILO Administration Cefepime HCl 1 gm/ Dextrose 50 mls @ 100 mls/hr 01/11/17 12:00 01/14/17 12:12 IVPB 100 mls/hr Q8H HERMILO Administration Dexmedetomidine HCl 200 mcg/ 50 mls @ 4.71 mls/hr 01/13/17 10:16 01/14/17 08:23 Sodium Chloride IVPB 11.79 mls/hr TITR PRN Administration Sedation Protocol 0.2 MCG/KG/HR Azithromycin 500 mg/ Sodium 250 mls @ 250 mls/hr 01/14/17 11:15 01/14/17 11:55 Chloride IVPB 250 mls/hr DAILY@1100 HERMILO Administration Insulin Human Regular 0 unit 01/09/17 18:00 01/14/17 12:10 Novolin R SC 1 unit Q6H HERMILO Administration Protocol Pantoprazole Sodium 40 mg 01/09/17 12:15 01/14/17 10:28 Protonix Inj IVP 40 mg DAILY HERMILO Administration Potassium Phos/Sodium Phos 1 pkt 01/13/17 14:00 01/14/17 10:31 Neutra-Phos PO 01/16/17 14:01 1 pkt TID HERMILO Administration Rosuvastatin Calcium 10 mg 01/10/17 22:00 01/13/17 21:00 Crestor PO 10 mg HS HERMILO Administration - Patient Studies Lab Studies: Microbiology Studies 01/10/17 12:30 Blood Culture - Preliminary Blood NO GROWTH AFTER 3 DAYS 01/10/17 12:00 Blood Culture - Preliminary Blood NO GROWTH AFTER 3 DAYS Lab Studies 01/14/17 01/14/17 01/14/17 Range/Units 11:31 06:35 05:07 WBC 9.9 (4.8-10.8) K/uL RBC 4.03 L (4.40-5.90) Mil/uL Hgb 11.5 L (12.0-18.0) g/dL Hct 36.2 (35.0-51.0) % MCV 89.7 (80.0-94.0) fL MCH 28.5 (27.0-31.0) pg MCHC 31.8 L (33.0-37.0) g/dL RDW 14.3 (11.5-14.5) % Plt Count 185 (130-400) K/uL MPV 11.1 (7.2-11.7) fL Neut % (Auto) 84.4 H (50.0-75.0) % Lymph % (Auto) 5.5 L (20.0-40.0) % [place] % (Auto) 7.4 (0.0-10.0) % Eos % (Auto) 1.7 (0.0-4.0) % Baso % (Auto) 1.0 (0.0-2.0) % Neut # 8.3 H (1.8-7.0) K/uL Lymph # 0.5 L (1.0-4.3) K/uL [place] # 0.7 (0.0-0.8) K/uL Eos # 0.2 (0.0-0.7) K/uL Baso # 0.1 (0.0-0.2) K/uL Neutrophils % (Manual) 90 H (50-75) % Band Neutrophils % 2 (0-2) % Lymphocytes % (Manual) 7 L (20-40) % Monocytes % (Manual) 1 (0-10) % Platelet Estimate Normal (NORMAL) RBC Morphology Normal Puncture Site Rr pCO2 49 H (35-45) mm/Hg pO2 77 L (80-100) mm/Hg HCO3 31.7 H (21-28) mmol/L ABG pH 7.45 (7.35-7.45) ABG Total CO2 35.6 H (22-28) mmol/L ABG O2 Saturation 97.8 (95-98) % ABG Base Excess 8.8 H (-2.0-3.0) mmol/L ABG Hemoglobin 11.2 L (11.7-17.4) g/dL ABG Carboxyhemoglobin 1.8 H (0.5-1.5) % POC ABG HHb (Measured) 2.1 (0.0-5.0) % ABG Methemoglobin 1.4 (0.0-3.0) % Mono Test Pos A-a O2 Difference 147.0 mm/Hg Respiratory Index 1.9 Hgb O2 Saturation 94.6 L (95.0-98.0) % Mechanical Rate 16 FiO2 40.0 % Tidal Volume 500 PEEP 5 Sodium (132-148) mmol/L Potassium (3.6-5.2) mmol/L Chloride (98-107) mmol/L Carbon Dioxide (22-30) mmol/L Anion Gap (10-20) BUN (9-20) mg/dL Creatinine (0.8-1.5) MG/DL Est GFR ( Amer) Est GFR (Non-Af Amer) POC Glucose (mg/dL) 164 H (65-110) mg/dL Random Glucose (75-110) mg/dL Calcium (8.6-10.4) mg/dl Phosphorus (2.5-4.5) mg/dL Magnesium (1.6-2.3) mg/dL Total Bilirubin (0.2-1.3) mg/dL AST (17-59) U/L ALT (21-72) U/L Alkaline Phosphatase (38-126) U/L Total Protein (6.3-8.3) g/dL Albumin (3.5-5.0) g/dL Globulin (2.2-3.9) gm/dL Albumin/Globulin Ratio (1.0-2.1) 01/14/17 01/14/17 01/13/17 Range/Units 05:00 04:00 23:55 WBC (4.8-10.8) K/uL RBC (4.40-5.90) Mil/uL Hgb (12.0-18.0) g/dL Hct (35.0-51.0) % MCV (80.0-94.0) fL MCH (27.0-31.0) pg MCHC (33.0-37.0) g/dL RDW (11.5-14.5) % Plt Count (130-400) K/uL MPV (7.2-11.7) fL Neut % (Auto) (50.0-75.0) % Lymph % (Auto) (20.0-40.0) % [place] % (Auto) (0.0-10.0) % Eos % (Auto) (0.0-4.0) % Baso % (Auto) (0.0-2.0) % Neut # (1.8-7.0) K/uL Lymph # (1.0-4.3) K/uL [place] # (0.0-0.8) K/uL Eos # (0.0-0.7) K/uL Baso # (0.0-0.2) K/uL Neutrophils % (Manual) (50-75) % Band Neutrophils % (0-2) % Lymphocytes % (Manual) (20-40) % Monocytes % (Manual) (0-10) % Platelet Estimate (NORMAL) RBC Morphology Puncture Site pCO2 (35-45) mm/Hg pO2 (80-100) mm/Hg HCO3 (21-28) mmol/L ABG pH (7.35-7.45) ABG Total CO2 (22-28) mmol/L ABG O2 Saturation (95-98) % ABG Base Excess (-2.0-3.0) mmol/L ABG Hemoglobin (11.7-17.4) g/dL ABG Carboxyhemoglobin (0.5-1.5) % POC ABG HHb (Measured) (0.0-5.0) % ABG Methemoglobin (0.0-3.0) % Mono Test A-a O2 Difference mm/Hg Respiratory Index Hgb O2 Saturation (95.0-98.0) % Mechanical Rate FiO2 % Tidal Volume PEEP Sodium 150 H (132-148) mmol/L Potassium 4.2 (3.6-5.2) mmol/L Chloride 110 H (98-107) mmol/L Carbon Dioxide 30 (22-30) mmol/L Anion Gap 14 (10-20) BUN 30 H (9-20) mg/dL Creatinine 1.1 (0.8-1.5) MG/DL Est GFR ( Amer) > 60 Est GFR (Non-Af Amer) > 60 POC Glucose (mg/dL) 180 H 156 H (65-110) mg/dL Random Glucose 159 H (75-110) mg/dL Calcium 9.4 (8.6-10.4) mg/dl Phosphorus 2.5 (2.5-4.5) mg/dL Magnesium 2.9 H (1.6-2.3) mg/dL Total Bilirubin 0.6 (0.2-1.3) mg/dL AST 31 (17-59) U/L ALT 31 (21-72) U/L Alkaline Phosphatase 95 (38-126) U/L Total Protein 6.6 (6.3-8.3) g/dL Albumin 3.2 L (3.5-5.0) g/dL Globulin 3.4 (2.2-3.9) gm/dL Albumin/Globulin Ratio 0.9 L (1.0-2.1) 01/13/17 Range/Units 17:45 WBC (4.8-10.8) K/uL RBC (4.40-5.90) Mil/uL Hgb (12.0-18.0) g/dL Hct (35.0-51.0) % MCV (80.0-94.0) fL MCH (27.0-31.0) pg MCHC (33.0-37.0) g/dL RDW (11.5-14.5) % Plt Count (130-400) K/uL MPV (7.2-11.7) fL Neut % (Auto) (50.0-75.0) % Lymph % (Auto) (20.0-40.0) % [place] % (Auto) (0.0-10.0) % Eos % (Auto) (0.0-4.0) % Baso % (Auto) (0.0-2.0) % Neut # (1.8-7.0) K/uL Lymph # (1.0-4.3) K/uL [place] # (0.0-0.8) K/uL Eos # (0.0-0.7) K/uL Baso # (0.0-0.2) K/uL Neutrophils % (Manual) (50-75) % Band Neutrophils % (0-2) % Lymphocytes % (Manual) (20-40) % Monocytes % (Manual) (0-10) % Platelet Estimate (NORMAL) RBC Morphology Puncture Site pCO2 (35-45) mm/Hg pO2 (80-100) mm/Hg HCO3 (21-28) mmol/L ABG pH (7.35-7.45) ABG Total CO2 (22-28) mmol/L ABG O2 Saturation (95-98) % ABG Base Excess (-2.0-3.0) mmol/L ABG Hemoglobin (11.7-17.4) g/dL ABG Carboxyhemoglobin (0.5-1.5) % POC ABG HHb (Measured) (0.0-5.0) % ABG Methemoglobin (0.0-3.0) % Mono Test A-a O2 Difference mm/Hg Respiratory Index Hgb O2 Saturation (95.0-98.0) % Mechanical Rate FiO2 % Tidal Volume PEEP Sodium (132-148) mmol/L Potassium (3.6-5.2) mmol/L Chloride (98-107) mmol/L Carbon Dioxide (22-30) mmol/L Anion Gap (10-20) BUN (9-20) mg/dL Creatinine (0.8-1.5) MG/DL Est GFR ( Amer) Est GFR (Non-Af Amer) POC Glucose (mg/dL) 141 H (65-110) mg/dL Random Glucose (75-110) mg/dL Calcium (8.6-10.4) mg/dl Phosphorus (2.5-4.5) mg/dL Magnesium (1.6-2.3) mg/dL Total Bilirubin (0.2-1.3) mg/dL AST (17-59) U/L ALT (21-72) U/L Alkaline Phosphatase (38-126) U/L Total Protein (6.3-8.3) g/dL Albumin (3.5-5.0) g/dL Globulin (2.2-3.9) gm/dL Albumin/Globulin Ratio (1.0-2.1) Laboratory Results - last 24 hr 01/13/17 01/13/17 01/14/17 17:45 23:55 04:00 WBC RBC Hgb Hct MCV MCH MCHC RDW Plt Count MPV Neut % (Auto) Lymph % (Auto) [place] % (Auto) Eos % (Auto) Baso % (Auto) Neut # Lymph # [place] # Eos # Baso # Neutrophils % (Manual) Band Neutrophils % Lymphocytes % (Manual) Monocytes % (Manual) Platelet Estimate RBC Morphology Puncture Site pCO2 pO2 HCO3 ABG pH ABG Total CO2 ABG O2 Saturation ABG Base Excess ABG Hemoglobin ABG Carboxyhemoglobin POC ABG HHb (Measured) ABG Methemoglobin Mono Test A-a O2 Difference Respiratory Index Hgb O2 Saturation Mechanical Rate FiO2 Tidal Volume PEEP Sodium 150 H Potassium 4.2 Chloride 110 H Carbon Dioxide 30 Anion Gap 14 BUN 30 H Creatinine 1.1 Est GFR ( Amer) > 60 Est GFR (Non-Af Amer) > 60 POC Glucose (mg/dL) 141 H 156 H Random Glucose 159 H Calcium 9.4 Phosphorus 2.5 Magnesium 2.9 H Total Bilirubin 0.6 AST 31 ALT 31 Alkaline Phosphatase 95 Total Protein 6.6 Albumin 3.2 L Globulin 3.4 Albumin/Globulin Ratio 0.9 L 01/14/17 01/14/17 01/14/17 05:00 05:07 06:35 WBC 9.9 RBC 4.03 L Hgb 11.5 L Hct 36.2 MCV 89.7 MCH 28.5 MCHC 31.8 L RDW 14.3 Plt Count 185 MPV 11.1 Neut % (Auto) 84.4 H Lymph % (Auto) 5.5 L [place] % (Auto) 7.4 Eos % (Auto) 1.7 Baso % (Auto) 1.0 Neut # 8.3 H Lymph # 0.5 L [place] # 0.7 Eos # 0.2 Baso # 0.1 Neutrophils % (Manual) 90 H Band Neutrophils % 2 Lymphocytes % (Manual) 7 L Monocytes % (Manual) 1 Platelet Estimate Normal RBC Morphology Normal Puncture Site Rr pCO2 49 H pO2 77 L HCO3 31.7 H ABG pH 7.45 ABG Total CO2 35.6 H ABG O2 Saturation 97.8 ABG Base Excess 8.8 H ABG Hemoglobin 11.2 L ABG Carboxyhemoglobin 1.8 H POC ABG HHb (Measured) 2.1 ABG Methemoglobin 1.4 Mono Test Pos A-a O2 Difference 147.0 Respiratory Index 1.9 Hgb O2 Saturation 94.6 L Mechanical Rate 16 FiO2 40.0 Tidal Volume 500 PEEP 5 Sodium Potassium Chloride Carbon Dioxide Anion Gap BUN Creatinine Est GFR ( Amer) Est GFR (Non-Af Amer) POC Glucose (mg/dL) 180 H Random Glucose Calcium Phosphorus Magnesium Total Bilirubin AST ALT Alkaline Phosphatase Total Protein Albumin Globulin Albumin/Globulin Ratio 01/14/17 11:31 WBC RBC Hgb Hct MCV MCH MCHC RDW Plt Count MPV Neut % (Auto) Lymph % (Auto) [place] % (Auto) Eos % (Auto) Baso % (Auto) Neut # Lymph # [place] # Eos # Baso # Neutrophils % (Manual) Band Neutrophils % Lymphocytes % (Manual) Monocytes % (Manual) Platelet Estimate RBC Morphology Puncture Site pCO2 pO2 HCO3 ABG pH ABG Total CO2 ABG O2 Saturation ABG Base Excess ABG Hemoglobin ABG Carboxyhemoglobin POC ABG HHb (Measured) ABG Methemoglobin Mono Test A-a O2 Difference Respiratory Index Hgb O2 Saturation Mechanical Rate FiO2 Tidal Volume PEEP Sodium Potassium Chloride Carbon Dioxide Anion Gap BUN Creatinine Est GFR ( Amer) Est GFR (Non-Af Amer) POC Glucose (mg/dL) 164 H Random Glucose Calcium Phosphorus Magnesium Total Bilirubin AST ALT Alkaline Phosphatase Total Protein Albumin Globulin Albumin/Globulin Ratio Fingerstick Blood Sugar Results: 164 Review of Systems - Review of Systems Systems not reviewed;Unavailable: Altered Mental Status Assessment/Plan - Assessment and Plan (Free Text) Assessment: 76 year old male of [place] descent, with PMHx of afib (on xarelto), presenting with new onset weakness and respiratory distress. Pt intubated and sedated. CT scan shows left basal intraparenchymal bleed. Plan: Neuro: Pt intubated, daily sedation vacation. - Precedex drip CT Head (01/09/17): Left intraparenchymal hemorrhage without midline shift (see full report) - repeat CT (01/09/17): stable hemorrhage (see full report) - repeat 24hr CT (01/10/17): no new hemorrhage. Redemonstrated large left BG hemorrhage surrounded by edema and/or necrotic brain tissue. Mild mass effect. ( see full report). Decreased movement of right side; minimal movement of RUE Dr Segura, Neurology, consulted: help appreciated - PCC (Kcentra) treatment completed - head of bed to 30 degrees - Stable CT head: ASA 325mg PO Daily Dr. Palmer, Neurosurgery, consulted: help appreciated - No intervention at this time Elevated temp (100.3) on 01/10 - Sputum Cx (01/10/17): Normal amando - Urine Cx (01/10/17): Enterococcus Faecalis - Blood cx (01/10/17): No growth for 3 days x 2 - MRSA (01/09/17): Not detected Endo: Hgb A1c: 6.5 Accuchecks ACHS ISS - low CV: Hx of atrial fibrillation - EKG on presentation: Afib w. RVR (rate 108). Left axis deviation. - Hold Home med Xarelto 20mg Daily Digoxin level (01/10/17): < 0.4 - Loaded, then restarted home Digoxin 0.1mg IVP CAD - Crestor 10mg PO HS Pulm: Pt intubated. Still mild hypoxia, continuing diuresis for pulmonary edema. Vent settings: TV 500, Rate 16, FiO2 40, PEEP 5 Pleural effusions: CXR (01/14/17) Stable consolidative changes primarily affecting RLL. Stable right pleural effusion. (see full report) CT Chest/Abd/Pelvis (01/14/17): Cardiomegaly. Right greater than left small bilateral pleural effusions with consolidation. Scattered emphysematous changes. Pulmonary venous congestion. Gallbladder wall thickening, pericholecystic edema. Absent Right kidney. Bilateral adrenal gland hypertrophy. Tiny fat containing umbilical hernia. (see full report) - Cefepime 1gm IV Q8H Pt for chest tube, tomorrow AM Duonebs Q6H HERMILO GI: Started tubefeeding: diabetisource - At Goal: 45 ml/hr CT Chest/Abd/Pelvis (01/14/17): Cardiomegaly. Right greater than left small bilateral pleural effusions with consolidation. Scattered emphysematous changes. Pulmonary venous congestion. Gallbladder wall thickening, pericholecystic edema. Absent Right kidney. Bilateral adrenal gland hypertrophy. Tiny fat containing umbilical hernia. (see full report) LFTs WNL : BUN/Cr WNL Hypernatremia - 150 on AM labs Hypophosphatemia: - 2.5 on AM labs - Continue Neutraphos Sanchez catheter in place Urine output improved Monitor I/Os ID: Leukocytosis: resolved today - left shift, with 2 bands - continue Cefepime for possible VAP Hem/Onc: On home Xarelto - Kcentra completed for stabilization of ICH. - can restart Xarelto or alternative terminal gauger stroke prophylaxis at least 6 weeks from bleed stabilization Mskltl: PT/OT eval Prophylaxis: DVT: SCDs VTE: contraindicated due to active BG bleed GI: Protonix IV <Grover Ray - Last Filed: 01/14/17 17:30> CCU Objective - Vital Signs / Intake & Output Intake and Output (Last 8hrs): Intake & Output 01/14/17 01/14/17 01/14/17 06:59 14:59 22:59 Intake Total 474.0 106.0 Output Total 410 35 Balance 64.0 71.0 Weight 212 lb Intake: Intake, IV Amount 154.0 26.0 Right Antecubital 28.2 26.0 Left Forearm 125.8 Tube Feeding 320 80 Output: Urine 410 35 Urethral (Sanchez) 410 35 - Medications Active Medications: Active Medications Generic Name Dose Route Start Last Admin Trade Name Freq PRN Reason Stop Dose Admin Acetaminophen 650 mg 01/10/17 23:50 01/12/17 16:20 Tylenol 650mg/20.3ml Solution Ud PO 650 mg Q6 PRN Administration Fever >100.4 F Albuterol/Ipratropium 3 ml 01/12/17 14:00 01/14/17 13:41 Duoneb 3 Mg/0.5 Mg (3 Ml) Ud INH 3 ml RQ6 HERMILO Administration Aspirin 81 mg 01/12/17 10:00 01/14/17 10:32 Aspirin Chewable PO 81 mg DAILY HERMILO Administration Digoxin 0.1 mg 01/11/17 18:00 01/13/17 17:28 Lanoxin IVP 0.1 mg DAILY@1800 HERMILO Administration Cefepime HCl 1 gm/ Dextrose 50 mls @ 100 mls/hr 01/11/17 12:00 01/14/17 12:12 IVPB 100 mls/hr Q8H HERMILO Administration Dexmedetomidine HCl 200 mcg/ 50 mls @ 4.71 mls/hr 01/13/17 10:16 01/14/17 15:31 Sodium Chloride IVPB 9.43 mls/hr TITR PRN Administration Sedation Protocol 0.2 MCG/KG/HR Azithromycin 500 mg/ Sodium 250 mls @ 250 mls/hr 01/14/17 11:15 01/14/17 11:55 Chloride IVPB 250 mls/hr DAILY@1100 HERMILO Administration Insulin Human Regular 0 unit 01/09/17 18:00 01/14/17 12:10 Novolin R SC 1 unit Q6H HERMILO Administration Protocol Pantoprazole Sodium 40 mg 01/09/17 12:15 01/14/17 10:28 Protonix Inj IVP 40 mg DAILY HERMILO Administration Potassium Phos/Sodium Phos 1 pkt 01/13/17 14:00 01/14/17 13:14 Neutra-Phos PO 01/16/17 14:01 1 pkt TID HERMILO Administration Rosuvastatin Calcium 10 mg 01/10/17 22:00 01/13/17 21:00 Crestor PO 10 mg HS HERMILO Administration - Patient Studies Lab Studies: Microbiology Studies 01/10/17 12:30 Blood Culture - Preliminary Blood NO GROWTH AFTER 4 DAYS 01/10/17 12:00 Blood Culture - Preliminary Blood NO GROWTH AFTER 4 DAYS Lab Studies 01/14/17 01/14/17 01/14/17 Range/Units 11:31 06:35 05:07 WBC 9.9 (4.8-10.8) K/uL RBC 4.03 L (4.40-5.90) Mil/uL Hgb 11.5 L (12.0-18.0) g/dL Hct 36.2 (35.0-51.0) % MCV 89.7 (80.0-94.0) fL MCH 28.5 (27.0-31.0) pg MCHC 31.8 L (33.0-37.0) g/dL RDW 14.3 (11.5-14.5) % Plt Count 185 (130-400) K/uL MPV 11.1 (7.2-11.7) fL Neut % (Auto) 84.4 H (50.0-75.0) % Lymph % (Auto) 5.5 L (20.0-40.0) % [place] % (Auto) 7.4 (0.0-10.0) % Eos % (Auto) 1.7 (0.0-4.0) % Baso % (Auto) 1.0 (0.0-2.0) % Neut # 8.3 H (1.8-7.0) K/uL Lymph # 0.5 L (1.0-4.3) K/uL [place] # 0.7 (0.0-0.8) K/uL Eos # 0.2 (0.0-0.7) K/uL Baso # 0.1 (0.0-0.2) K/uL Neutrophils % (Manual) 90 H (50-75) % Band Neutrophils % 2 (0-2) % Lymphocytes % (Manual) 7 L (20-40) % Monocytes % (Manual) 1 (0-10) % Platelet Estimate Normal (NORMAL) RBC Morphology Normal Puncture Site Rr pCO2 49 H (35-45) mm/Hg pO2 77 L (80-100) mm/Hg HCO3 31.7 H (21-28) mmol/L ABG pH 7.45 (7.35-7.45) ABG Total CO2 35.6 H (22-28) mmol/L ABG O2 Saturation 97.8 (95-98) % ABG Base Excess 8.8 H (-2.0-3.0) mmol/L ABG Hemoglobin 11.2 L (11.7-17.4) g/dL ABG Carboxyhemoglobin 1.8 H (0.5-1.5) % POC ABG HHb (Measured) 2.1 (0.0-5.0) % ABG Methemoglobin 1.4 (0.0-3.0) % Mono Test Pos A-a O2 Difference 147.0 mm/Hg Respiratory Index 1.9 Hgb O2 Saturation 94.6 L (95.0-98.0) % Mechanical Rate 16 FiO2 40.0 % Tidal Volume 500 PEEP 5 Sodium (132-148) mmol/L Potassium (3.6-5.2) mmol/L Chloride (98-107) mmol/L Carbon Dioxide (22-30) mmol/L Anion Gap (10-20) BUN (9-20) mg/dL Creatinine (0.8-1.5) MG/DL Est GFR ( Amer) Est GFR (Non-Af Amer) POC Glucose (mg/dL) 164 H (65-110) mg/dL Random Glucose (75-110) mg/dL Calcium (8.6-10.4) mg/dl Phosphorus (2.5-4.5) mg/dL Magnesium (1.6-2.3) mg/dL Total Bilirubin (0.2-1.3) mg/dL AST (17-59) U/L ALT (21-72) U/L Alkaline Phosphatase (38-126) U/L Total Protein (6.3-8.3) g/dL Albumin (3.5-5.0) g/dL Globulin (2.2-3.9) gm/dL Albumin/Globulin Ratio (1.0-2.1) 01/14/17 01/14/17 01/13/17 Range/Units 05:00 04:00 23:55 WBC (4.8-10.8) K/uL RBC (4.40-5.90) Mil/uL Hgb (12.0-18.0) g/dL Hct (35.0-51.0) % MCV (80.0-94.0) fL MCH (27.0-31.0) pg MCHC (33.0-37.0) g/dL RDW (11.5-14.5) % Plt Count (130-400) K/uL MPV (7.2-11.7) fL Neut % (Auto) (50.0-75.0) % Lymph % (Auto) (20.0-40.0) % [place] % (Auto) (0.0-10.0) % Eos % (Auto) (0.0-4.0) % Baso % (Auto) (0.0-2.0) % Neut # (1.8-7.0) K/uL Lymph # (1.0-4.3) K/uL [place] # (0.0-0.8) K/uL Eos # (0.0-0.7) K/uL Baso # (0.0-0.2) K/uL Neutrophils % (Manual) (50-75) % Band Neutrophils % (0-2) % Lymphocytes % (Manual) (20-40) % Monocytes % (Manual) (0-10) % Platelet Estimate (NORMAL) RBC Morphology Puncture Site pCO2 (35-45) mm/Hg pO2 (80-100) mm/Hg HCO3 (21-28) mmol/L ABG pH (7.35-7.45) ABG Total CO2 (22-28) mmol/L ABG O2 Saturation (95-98) % ABG Base Excess (-2.0-3.0) mmol/L ABG Hemoglobin (11.7-17.4) g/dL ABG Carboxyhemoglobin (0.5-1.5) % POC ABG HHb (Measured) (0.0-5.0) % ABG Methemoglobin (0.0-3.0) % Mono Test A-a O2 Difference mm/Hg Respiratory Index Hgb O2 Saturation (95.0-98.0) % Mechanical Rate FiO2 % Tidal Volume PEEP Sodium 150 H (132-148) mmol/L Potassium 4.2 (3.6-5.2) mmol/L Chloride 110 H (98-107) mmol/L Carbon Dioxide 30 (22-30) mmol/L Anion Gap 14 (10-20) BUN 30 H (9-20) mg/dL Creatinine 1.1 (0.8-1.5) MG/DL Est GFR ( Amer) > 60 Est GFR (Non-Af Amer) > 60 POC Glucose (mg/dL) 180 H 156 H (65-110) mg/dL Random Glucose 159 H (75-110) mg/dL Calcium 9.4 (8.6-10.4) mg/dl Phosphorus 2.5 (2.5-4.5) mg/dL Magnesium 2.9 H (1.6-2.3) mg/dL Total Bilirubin 0.6 (0.2-1.3) mg/dL AST 31 (17-59) U/L ALT 31 (21-72) U/L Alkaline Phosphatase 95 (38-126) U/L Total Protein 6.6 (6.3-8.3) g/dL Albumin 3.2 L (3.5-5.0) g/dL Globulin 3.4 (2.2-3.9) gm/dL Albumin/Globulin Ratio 0.9 L (1.0-2.1) 01/13/17 Range/Units 17:45 WBC (4.8-10.8) K/uL RBC (4.40-5.90) Mil/uL Hgb (12.0-18.0) g/dL Hct (35.0-51.0) % MCV (80.0-94.0) fL MCH (27.0-31.0) pg MCHC (33.0-37.0) g/dL RDW (11.5-14.5) % Plt Count (130-400) K/uL MPV (7.2-11.7) fL Neut % (Auto) (50.0-75.0) % Lymph % (Auto) (20.0-40.0) % [place] % (Auto) (0.0-10.0) % Eos % (Auto) (0.0-4.0) % Baso % (Auto) (0.0-2.0) % Neut # (1.8-7.0) K/uL Lymph # (1.0-4.3) K/uL [place] # (0.0-0.8) K/uL Eos # (0.0-0.7) K/uL Baso # (0.0-0.2) K/uL Neutrophils % (Manual) (50-75) % Band Neutrophils % (0-2) % Lymphocytes % (Manual) (20-40) % Monocytes % (Manual) (0-10) % Platelet Estimate (NORMAL) RBC Morphology Puncture Site pCO2 (35-45) mm/Hg pO2 (80-100) mm/Hg HCO3 (21-28) mmol/L ABG pH (7.35-7.45) ABG Total CO2 (22-28) mmol/L ABG O2 Saturation (95-98) % ABG Base Excess (-2.0-3.0) mmol/L ABG Hemoglobin (11.7-17.4) g/dL ABG Carboxyhemoglobin (0.5-1.5) % POC ABG HHb (Measured) (0.0-5.0) % ABG Methemoglobin (0.0-3.0) % Mono Test A-a O2 Difference mm/Hg Respiratory Index Hgb O2 Saturation (95.0-98.0) % Mechanical Rate FiO2 % Tidal Volume PEEP Sodium (132-148) mmol/L Potassium (3.6-5.2) mmol/L Chloride (98-107) mmol/L Carbon Dioxide (22-30) mmol/L Anion Gap (10-20) BUN (9-20) mg/dL Creatinine (0.8-1.5) MG/DL Est GFR ( Amer) Est GFR (Non-Af Amer) POC Glucose (mg/dL) 141 H (65-110) mg/dL Random Glucose (75-110) mg/dL Calcium (8.6-10.4) mg/dl Phosphorus (2.5-4.5) mg/dL Magnesium (1.6-2.3) mg/dL Total Bilirubin (0.2-1.3) mg/dL AST (17-59) U/L ALT (21-72) U/L Alkaline Phosphatase (38-126) U/L Total Protein (6.3-8.3) g/dL Albumin (3.5-5.0) g/dL Globulin (2.2-3.9) gm/dL Albumin/Globulin Ratio (1.0-2.1) Laboratory Results - last 24 hr 01/13/17 01/13/17 01/14/17 17:45 23:55 04:00 WBC RBC Hgb Hct MCV MCH MCHC RDW Plt Count MPV Neut % (Auto) Lymph % (Auto) [place] % (Auto) Eos % (Auto) Baso % (Auto) Neut # Lymph # [place] # Eos # Baso # Neutrophils % (Manual) Band Neutrophils % Lymphocytes % (Manual) Monocytes % (Manual) Platelet Estimate RBC Morphology Puncture Site pCO2 pO2 HCO3 ABG pH ABG Total CO2 ABG O2 Saturation ABG Base Excess ABG Hemoglobin ABG Carboxyhemoglobin POC ABG HHb (Measured) ABG Methemoglobin Mono Test A-a O2 Difference Respiratory Index Hgb O2 Saturation Mechanical Rate FiO2 Tidal Volume PEEP Sodium 150 H Potassium 4.2 Chloride 110 H Carbon Dioxide 30 Anion Gap 14 BUN 30 H Creatinine 1.1 Est GFR ( Amer) > 60 Est GFR (Non-Af Amer) > 60 POC Glucose (mg/dL) 141 H 156 H Random Glucose 159 H Calcium 9.4 Phosphorus 2.5 Magnesium 2.9 H Total Bilirubin 0.6 AST 31 ALT 31 Alkaline Phosphatase 95 Total Protein 6.6 Albumin 3.2 L Globulin 3.4 Albumin/Globulin Ratio 0.9 L 01/14/17 01/14/17 01/14/17 05:00 05:07 06:35 WBC 9.9 RBC 4.03 L Hgb 11.5 L Hct 36.2 MCV 89.7 MCH 28.5 MCHC 31.8 L RDW 14.3 Plt Count 185 MPV 11.1 Neut % (Auto) 84.4 H Lymph % (Auto) 5.5 L [place] % (Auto) 7.4 Eos % (Auto) 1.7 Baso % (Auto) 1.0 Neut # 8.3 H Lymph # 0.5 L [place] # 0.7 Eos # 0.2 Baso # 0.1 Neutrophils % (Manual) 90 H Band Neutrophils % 2 Lymphocytes % (Manual) 7 L Monocytes % (Manual) 1 Platelet Estimate Normal RBC Morphology Normal Puncture Site Rr pCO2 49 H pO2 77 L HCO3 31.7 H ABG pH 7.45 ABG Total CO2 35.6 H ABG O2 Saturation 97.8 ABG Base Excess 8.8 H ABG Hemoglobin 11.2 L ABG Carboxyhemoglobin 1.8 H POC ABG HHb (Measured) 2.1 ABG Methemoglobin 1.4 Mono Test Pos A-a O2 Difference 147.0 Respiratory Index 1.9 Hgb O2 Saturation 94.6 L Mechanical Rate 16 FiO2 40.0 Tidal Volume 500 PEEP 5 Sodium Potassium Chloride Carbon Dioxide Anion Gap BUN Creatinine Est GFR ( Amer) Est GFR (Non-Af Amer) POC Glucose (mg/dL) 180 H Random Glucose Calcium Phosphorus Magnesium Total Bilirubin AST ALT Alkaline Phosphatase Total Protein Albumin Globulin Albumin/Globulin Ratio 01/14/17 11:31 WBC RBC Hgb Hct MCV MCH MCHC RDW Plt Count MPV Neut % (Auto) Lymph % (Auto) [place] % (Auto) Eos % (Auto) Baso % (Auto) Neut # Lymph # [place] # Eos # Baso # Neutrophils % (Manual) Band Neutrophils % Lymphocytes % (Manual) Monocytes % (Manual) Platelet Estimate RBC Morphology Puncture Site pCO2 pO2 HCO3 ABG pH ABG Total CO2 ABG O2 Saturation ABG Base Excess ABG Hemoglobin ABG Carboxyhemoglobin POC ABG HHb (Measured) ABG Methemoglobin Mono Test A-a O2 Difference Respiratory Index Hgb O2 Saturation Mechanical Rate FiO2 Tidal Volume PEEP Sodium Potassium Chloride Carbon Dioxide Anion Gap BUN Creatinine Est GFR ( Amer) Est GFR (Non-Af Amer) POC Glucose (mg/dL) 164 H Random Glucose Calcium Phosphorus Magnesium Total Bilirubin AST ALT Alkaline Phosphatase Total Protein Albumin Globulin Albumin/Globulin Ratio Attending/Attestation - Attestation I have personally seen and examined this patient.: Yes I have fully participated in the care of the patient.: Yes I have reviewed all pertinent clinical information: Yes Notes (Text): 01/14/17 17:28 Patient seen and examined in the intensive care unit. Case discussed with house staff in the morning rounds. 76 year old male of [place] descent, with PMHx of afib (on xarelto), presenting with new onset weakness and respiratory distress. Pt intubated and sedated. CT scan shows left basal intraparenchymal bleed. CAT scan of the chest consistent with right pleural effusion Continue antibiotics Wean as tolerated Thoracentesis in a.m.
--- NOTE | 2017-01-14 13:12 | RAD ---
HISTORY: intubated; f.u opacities . Technique: Single view portable semi erect @ 06:50. COMPARISON: Multiple serial examinations preceding the most recent study: January 13, 2017. Employing similar portable technique performed at 07:00 FINDINGS: LUNGS: Stable consolidative changes primarily affecting right lower lobe. PLEURA: Stable right pleural effusion CARDIOVASCULAR: Stable cardiomegaly OSSEOUS STRUCTURES: No significant abnormalities. VISUALIZED UPPER ABDOMEN: Normal. OTHER FINDINGS: Satisfactory position of endotracheal tube. The tip 4 cm above the deya. IMPRESSION: No significant interval change compared to the prior examination(s).
--- NOTE | 2017-01-14 14:15 | CT ---
CT chest, abdomen, and pelvis without IV contrast Indication: Worsening pleural effusion. Technique: Contiguous axial images of the chest, abdomen, and pelvis without oral or IV contrast. Coronal and Sagittal reformats generated and reviewed. This CT exam was performed using 1 or more of the falling dose reduction techniques: Automated exposure control, adjustment of the MAA and/or kV according to patient size, and/or use of iterative reconstruction technique. Radiation dose: Total exam DLP = 1926.44 MGy-cm. Comparison: Chest x-ray performed 01/14/17 Findings: Endotracheal tube and nasogastric tube appear in satisfactory position. Visualized portions of the inferior thyroid gland appear unremarkable. The unenhanced mediastinal and hilar vascular structures appear grossly unremarkable. Cardiomegaly. Right greater than left small bilateral pleural effusions and associated consolidations. No pneumothorax. Scattered probable emphysematous changes. Pulmonary venous congestion. Gallbladder wall thickening/pericholecystic edema. Absent right kidney. Bilateral adrenal gland hypertrophy. The noncontrast liver, spleen, left kidney, and pancreas appear unremarkable. The stomach is nondistended. Lack of oral contrast limits evaluation for bowel pathology. The bowel loops appear within normal limits of caliber without evidence of intestinal obstruction. The appendix appears within normal limits of caliber. No secondary signs of acute appendicitis. There is no definite free air. The prostate gland measures approximately 3.2 x 4.2 cm. Early catheter within a decompressed urinary bladder which contains focus of air, likely secondary to recent instrumentation. Tiny fat containing umbilical hernia. Right greater than left fat containing umbilical hernias. Degenerative changes. Mild curvature of the lumbar spine convex to the left. Impression: Endotracheal tube and nasogastric tube appear in satisfactory position. Cardiomegaly. Right greater than left small bilateral pleural effusions and associated consolidations. Scattered probable emphysematous changes. Pulmonary venous congestion. Gallbladder wall thickening/pericholecystic edema. Correlate clinically and recommend right upper quadrant ultrasound if indicated. Absent right kidney. Bilateral adrenal gland hypertrophy. Early catheter within a decompressed urinary bladder which contains focus of air, likely secondary to recent instrumentation. Tiny fat containing umbilical hernia. Right greater than left fat containing umbilical hernias.
[2017-01-14] MEDS: Digoxin 500 mcg/2ml (0.5 mg/2ml) Inj IVP SCH (18:15)
[2017-01-14] MEDS ORDERED: Enalaprilat 2.5 MG/2 ML IV ONE (20:14)
[2017-01-15] MEDS: Dexmedetomidine Hydrochloride 200 MCG in Sodium Chloride 0.9% 48 ML IVPB PRN ×4 (00:43→23:08)
[2017-01-15] MEDS: (Novolin R) Insulin Human Regular 100 units/ml vial SC SCH ×5 (01:10→23:51)
[2017-01-15] MEDS: Albuterol-Ipratrop 3 mg / 0.5 (3 ml) UD INH SCH ×4 (01:13→19:52)
[2017-01-15] MEDS ORDERED: Enalaprilat 2.5 MG/2 ML IV ONE ×2 (05:25→11:45)
[2017-01-15 05:37] LABS: ABG ALLEN TEST POS; ABG MECHANICAL RATE 16; ARTERIAL BLOOD HGB O2 SAT 95.5 % (95.0-98.0); ATERIAL BLOOD GAS PEEP 5; CARBOXYHEMOGLOBIN 1.9 % (0.5-1.5); DRAW SITE LRAD; HHB 1.5 % (0.0-5.0); METHEMOGLOBIN 1.1 % (0.0-3.0)
[2017-01-15 06:56] LABS: BASO # 0.1 K/uL (0.0-0.2); BASO % 1.2 % (0.0-2.0); EOS # 0.2 K/uL (0.0-0.7); EOS % 1.3 % (0.0-4.0); HEMATOCRIT 35.1 % (35.0-51.0); LYMPH # 0.5 K/uL (1.0-4.3); LYMPH % 4.7 % (20.0-40.0); MEAN CELL VOLUME 89.7 fL (80.0-94.0); MEAN CORPUSCULAR HEMOGLOBIN 28.2 pg (27.0-31.0); MEAN CORPUSCULAR HGB CONC 31.5 g/dL (33.0-37.0); MONO # 0.8 K/uL (0.0-0.8); MONO % 7.2 % (0.0-10.0); PLATELET COUNT 180 K/uL (130-400); RED CELL DISTRIBUTION WIDTH 14.2 % (11.5-14.5); WHITE BLOOD COUNT 11.4 K/uL (4.8-10.8)
[2017-01-15 07:26] LABS: CHLORIDE 109 mmol/L (98-107); POTASSIUM 3.7 mmol/L (3.6-5.2); SODIUM 149 mmol/L (132-148)
[2017-01-15 07:28] LABS: AST/SGOT 33 U/L (17-59); BILIRUBIN,TOTAL 0.5 mg/dL (0.2-1.3); CARBON DIOXIDE 30 mmol/L (22-30); GFR AFRICAN-AMERICAN > 60
[2017-01-15 07:29] LABS: ALKALINE PHOSPHATASE 84 U/L (38-126); ALT/SGPT 25 U/L (21-72); BLOOD UREA NITROGEN 29 mg/dL (9-20); CALCIUM 9.2 mg/dl (8.6-10.4); GLUCOSE,RANDOM 159 mg/dL (75-110); MAGNESIUM 2.9 mg/dL (1.6-2.3); PHOSPHOROUS 2.8 mg/dL (2.5-4.5); TOTAL PROTEIN 6.5 g/dL (6.3-8.3)
[2017-01-15 08:31] LABS: BASOPHIL 1 % (0-2); EOSINOPHIL 3 % (0-4); NEUTROPHIL 84 % (50-75); TOTAL CELLS COUNTED 100
[2017-01-15 08:32] LABS: GIANT PLATELETS PRESENT; LARGE PLATELETS PRESENT
--- NOTE | 2017-01-15 08:37 | CP.CCUPN ---
<Damaso Ng - Last Filed: 01/15/17 11:07> CCU Subjective - Physician Review Subjective (Free Text): 01/15/17 08:34 Pt seen and examined at bedside. Nursing reports episodes of hypertension overnight. Pt given Vasotec IV by night tire classifier. No change in pt clinical status. Will continue weaning from ventilation today. Consent obtained, via interpretation device, from son, Queta Duffy, for thoracentesis. Pt remains intubated, thus no ROS could be obtained. Pt has two sons: Queta Duffy [phone] (lead decision maker) Serafin Duffy [phone] - both are en route but expect to be arriving today Critical Care Time Spent (in minutes): 40 CCU Objective - Vital Signs / Intake & Output Vital Signs (Last 4 hours): Vital Signs Pulse Resp BP Pulse Ox 01/15/17 08:18 68 16 174/106 H 100 01/15/17 08:00 63 16 100 01/15/17 07:38 63 16 100 01/15/17 07:18 47 L 16 165/102 H 100 01/15/17 07:00 71 18 100 01/15/17 06:33 61 13 100 01/15/17 06:18 68 17 155/92 H 100 01/15/17 06:06 71 21 186/114 H 100 01/15/17 06:00 75 13 100 01/15/17 05:49 64 18 189/99 H 98 01/15/17 05:31 179/103 H 01/15/17 05:18 70 17 179/103 H 98 01/15/17 05:00 67 17 100 01/15/17 04:59 70 15 182/105 H 100 Intake and Output (Last 8hrs): Intake & Output 01/14/17 01/15/17 01/15/17 22:59 06:59 14:59 Intake Total 545.2 421.5 58.9 Output Total 375 600 Balance 170.2 -178.5 58.9 Weight 212 lb Intake: Intake, IV Amount 75.2 101.5 18.9 Right Antecubital 75.2 101.5 18.9 Tube Feeding 320 320 40 Other 150 Output: Urine 375 600 Urethral (Sanchez) 375 600 - Physical Exam Head: Positive for: Atraumatic, Normocephalic Extroacular Muscles: Positive for: EOMI Conjunctiva: Positive for: Injected Mouth: Positive for: Dry Respiratory/Chest: Positive for: Decreased Breath Sounds (especially on right side base), Other (Pt ventilated and sedated). Negative for: Accessory Muscle Use Cardiovascular: Positive for: Normal S1, S2, Irregular Rhythm Abdomen: Positive for: Normal Bowel Sounds Genitourinary Male: Positive for: Other (sanchez catheter in place) Upper Extremity: Positive for: Edema (rt hand swollen), Other (Right hand swollen due to infiltrated IV) Lower Extremity: Positive for: Edema (1+ pitting edema), NORMAL PULSES Neurological: Positive for: Other. Negative for: CN II-XII Intact (Pt sedated) , Speech Normal Skin: Positive for: Warm, Dry Psychiatric: Negative for: Alert, Oriented x 3 - Medications Active Medications: Active Medications Generic Name Dose Route Start Last Admin Trade Name Freq PRN Reason Stop Dose Admin Acetaminophen 650 mg 01/10/17 23:50 01/12/17 16:20 Tylenol 650mg/20.3ml Solution Ud PO 650 mg Q6 PRN Administration Fever >100.4 F Albuterol/Ipratropium 3 ml 01/12/17 14:00 01/15/17 07:47 Duoneb 3 Mg/0.5 Mg (3 Ml) Ud INH 3 ml RQ6 HERMILO Administration Aspirin 81 mg 01/12/17 10:00 01/14/17 10:32 Aspirin Chewable PO 81 mg DAILY HERMILO Administration Digoxin 0.1 mg 01/11/17 18:00 01/14/17 18:15 Lanoxin IVP 0.1 mg DAILY@1800 HERMILO Administration Cefepime HCl 1 gm/ Dextrose 50 mls @ 100 mls/hr 01/11/17 12:00 01/15/17 03:54 IVPB 100 mls/hr Q8H HERMILO Administration Dexmedetomidine HCl 200 mcg/ 50 mls @ 4.71 mls/hr 01/13/17 10:16 01/15/17 06:23 Sodium Chloride IVPB 0.8 mcg/kg/hr TITR PRN Titration Sedation Protocol 0.2 MCG/KG/HR Azithromycin 500 mg/ Sodium 250 mls @ 250 mls/hr 01/14/17 11:15 01/14/17 11:55 Chloride IVPB 250 mls/hr DAILY@1100 HERMILO Administration Insulin Human Regular 0 unit 01/09/17 18:00 01/15/17 05:32 Novolin R SC 1 unit Q6H HERMILO Administration Protocol Pantoprazole Sodium 40 mg 01/09/17 12:15 01/14/17 10:28 Protonix Inj IVP 40 mg DAILY HERMILO Administration Potassium Phos/Sodium Phos 1 pkt 01/13/17 14:00 01/14/17 18:14 Neutra-Phos PO 01/16/17 14:01 1 pkt TID HERMILO Administration Rosuvastatin Calcium 10 mg 01/10/17 22:00 01/14/17 21:35 Crestor PO 10 mg HS HERMILO Administration - Patient Studies Lab Studies: Microbiology Studies 01/10/17 12:30 Blood Culture - Preliminary Blood NO GROWTH AFTER 4 DAYS 01/10/17 12:00 Blood Culture - Preliminary Blood NO GROWTH AFTER 4 DAYS Lab Studies 01/15/17 01/15/17 01/15/17 Range/Units 06:43 05:19 04:58 WBC 11.4 H (4.8-10.8) K/uL RBC 3.91 L (4.40-5.90) Mil/uL Hgb 11.1 L (12.0-18.0) g/dL Hct 35.1 (35.0-51.0) % MCV 89.7 (80.0-94.0) fL MCH 28.2 (27.0-31.0) pg MCHC 31.5 L (33.0-37.0) g/dL RDW 14.2 (11.5-14.5) % Plt Count 180 (130-400) K/uL MPV 11.0 (7.2-11.7) fL Neut % (Auto) 85.6 H (50.0-75.0) % Lymph % (Auto) 4.7 L (20.0-40.0) % Luna % (Auto) 7.2 (0.0-10.0) % Eos % (Auto) 1.3 (0.0-4.0) % Baso % (Auto) 1.2 (0.0-2.0) % Neut # 9.8 H (1.8-7.0) K/uL Lymph # 0.5 L (1.0-4.3) K/uL Luna # 0.8 (0.0-0.8) K/uL Eos # 0.2 (0.0-0.7) K/uL Baso # 0.1 (0.0-0.2) K/uL Neutrophils % (Manual) 84 H (50-75) % Band Neutrophils % 2 (0-2) % Lymphocytes % (Manual) 4 L (20-40) % Monocytes % (Manual) 6 (0-10) % Eosinophils % (Manual) 3 (0-4) % Basophils % (Manual) 1 (0-2) % Platelet Estimate Normal (NORMAL) Large Platelets Present Giant Platelets Present RBC Morphology Hypochromasia (manual) Slight Poikilocytosis (manual Slight Anisocytosis (manual) Slight Puncture Site Lrad pCO2 51 H (35-45) mm/Hg pO2 92 (80-100) mm/Hg HCO3 32.6 H (21-28) mmol/L ABG pH 7.45 (7.35-7.45) ABG Total CO2 37.0 H (22-28) mmol/L ABG O2 Saturation 98.5 H (95-98) % ABG Base Excess 9.9 H (-2.0-3.0) mmol/L ABG Hemoglobin 11.1 L (11.7-17.4) g/dL ABG Carboxyhemoglobin 1.9 H (0.5-1.5) % POC ABG HHb (Measured) 1.5 (0.0-5.0) % ABG Methemoglobin 1.1 (0.0-3.0) % Mono Test Pos A-a O2 Difference 129.0 mm/Hg Respiratory Index 1.4 Hgb O2 Saturation 95.5 (95.0-98.0) % Mechanical Rate 16 FiO2 40.0 % Tidal Volume 500 PEEP 5 Sodium 149 H (132-148) mmol/L Potassium 3.7 (3.6-5.2) mmol/L Chloride 109 H (98-107) mmol/L Carbon Dioxide 30 (22-30) mmol/L Anion Gap 14 (10-20) BUN 29 H (9-20) mg/dL Creatinine 1.0 (0.8-1.5) MG/DL Est GFR ( Amer) > 60 Est GFR (Non-Af Amer) > 60 POC Glucose (mg/dL) 181 H (65-110) mg/dL Random Glucose 159 H (75-110) mg/dL Calcium 9.2 (8.6-10.4) mg/dl Phosphorus 2.8 (2.5-4.5) mg/dL Magnesium 2.9 H (1.6-2.3) mg/dL Total Bilirubin 0.5 (0.2-1.3) mg/dL AST 33 (17-59) U/L ALT 25 (21-72) U/L Alkaline Phosphatase 84 (38-126) U/L Total Protein 6.5 (6.3-8.3) g/dL Albumin 3.2 L (3.5-5.0) g/dL Globulin 3.3 (2.2-3.9) gm/dL Albumin/Globulin Ratio 1.0 (1.0-2.1) 01/15/17 01/14/17 01/14/17 Range/Units 01:01 17:51 11:31 WBC (4.8-10.8) K/uL RBC (4.40-5.90) Mil/uL Hgb (12.0-18.0) g/dL Hct (35.0-51.0) % MCV (80.0-94.0) fL MCH (27.0-31.0) pg MCHC (33.0-37.0) g/dL RDW (11.5-14.5) % Plt Count (130-400) K/uL MPV (7.2-11.7) fL Neut % (Auto) (50.0-75.0) % Lymph % (Auto) (20.0-40.0) % Luna % (Auto) (0.0-10.0) % Eos % (Auto) (0.0-4.0) % Baso % (Auto) (0.0-2.0) % Neut # (1.8-7.0) K/uL Lymph # (1.0-4.3) K/uL Luna # (0.0-0.8) K/uL Eos # (0.0-0.7) K/uL Baso # (0.0-0.2) K/uL Neutrophils % (Manual) (50-75) % Band Neutrophils % (0-2) % Lymphocytes % (Manual) (20-40) % Monocytes % (Manual) (0-10) % Eosinophils % (Manual) (0-4) % Basophils % (Manual) (0-2) % Platelet Estimate (NORMAL) Large Platelets Giant Platelets RBC Morphology Hypochromasia (manual) Poikilocytosis (manual Anisocytosis (manual) Puncture Site pCO2 (35-45) mm/Hg pO2 (80-100) mm/Hg HCO3 (21-28) mmol/L ABG pH (7.35-7.45) ABG Total CO2 (22-28) mmol/L ABG O2 Saturation (95-98) % ABG Base Excess (-2.0-3.0) mmol/L ABG Hemoglobin (11.7-17.4) g/dL ABG Carboxyhemoglobin (0.5-1.5) % POC ABG HHb (Measured) (0.0-5.0) % ABG Methemoglobin (0.0-3.0) % Mono Test A-a O2 Difference mm/Hg Respiratory Index Hgb O2 Saturation (95.0-98.0) % Mechanical Rate FiO2 % Tidal Volume PEEP Sodium (132-148) mmol/L Potassium (3.6-5.2) mmol/L Chloride (98-107) mmol/L Carbon Dioxide (22-30) mmol/L Anion Gap (10-20) BUN (9-20) mg/dL Creatinine (0.8-1.5) MG/DL Est GFR ( Amer) Est GFR (Non-Af Amer) POC Glucose (mg/dL) 154 H 135 H 164 H (65-110) mg/dL Random Glucose (75-110) mg/dL Calcium (8.6-10.4) mg/dl Phosphorus (2.5-4.5) mg/dL Magnesium (1.6-2.3) mg/dL Total Bilirubin (0.2-1.3) mg/dL AST (17-59) U/L ALT (21-72) U/L Alkaline Phosphatase (38-126) U/L Total Protein (6.3-8.3) g/dL Albumin (3.5-5.0) g/dL Globulin (2.2-3.9) gm/dL Albumin/Globulin Ratio (1.0-2.1) 01/14/17 Range/Units 06:35 WBC (4.8-10.8) K/uL RBC (4.40-5.90) Mil/uL Hgb (12.0-18.0) g/dL Hct (35.0-51.0) % MCV (80.0-94.0) fL MCH (27.0-31.0) pg MCHC (33.0-37.0) g/dL RDW (11.5-14.5) % Plt Count (130-400) K/uL MPV (7.2-11.7) fL Neut % (Auto) (50.0-75.0) % Lymph % (Auto) (20.0-40.0) % Luna % (Auto) (0.0-10.0) % Eos % (Auto) (0.0-4.0) % Baso % (Auto) (0.0-2.0) % Neut # (1.8-7.0) K/uL Lymph # (1.0-4.3) K/uL Luna # (0.0-0.8) K/uL Eos # (0.0-0.7) K/uL Baso # (0.0-0.2) K/uL Neutrophils % (Manual) 90 H (50-75) % Band Neutrophils % 2 (0-2) % Lymphocytes % (Manual) 7 L (20-40) % Monocytes % (Manual) 1 (0-10) % Eosinophils % (Manual) (0-4) % Basophils % (Manual) (0-2) % Platelet Estimate Normal (NORMAL) Large Platelets Giant Platelets RBC Morphology Normal Hypochromasia (manual) Poikilocytosis (manual Anisocytosis (manual) Puncture Site pCO2 (35-45) mm/Hg pO2 (80-100) mm/Hg HCO3 (21-28) mmol/L ABG pH (7.35-7.45) ABG Total CO2 (22-28) mmol/L ABG O2 Saturation (95-98) % ABG Base Excess (-2.0-3.0) mmol/L ABG Hemoglobin (11.7-17.4) g/dL ABG Carboxyhemoglobin (0.5-1.5) % POC ABG HHb (Measured) (0.0-5.0) % ABG Methemoglobin (0.0-3.0) % Mono Test A-a O2 Difference mm/Hg Respiratory Index Hgb O2 Saturation (95.0-98.0) % Mechanical Rate FiO2 % Tidal Volume PEEP Sodium (132-148) mmol/L Potassium (3.6-5.2) mmol/L Chloride (98-107) mmol/L Carbon Dioxide (22-30) mmol/L Anion Gap (10-20) BUN (9-20) mg/dL Creatinine (0.8-1.5) MG/DL Est GFR ( Amer) Est GFR (Non-Af Amer) POC Glucose (mg/dL) (65-110) mg/dL Random Glucose (75-110) mg/dL Calcium (8.6-10.4) mg/dl Phosphorus (2.5-4.5) mg/dL Magnesium (1.6-2.3) mg/dL Total Bilirubin (0.2-1.3) mg/dL AST (17-59) U/L ALT (21-72) U/L Alkaline Phosphatase (38-126) U/L Total Protein (6.3-8.3) g/dL Albumin (3.5-5.0) g/dL Globulin (2.2-3.9) gm/dL Albumin/Globulin Ratio (1.0-2.1) Laboratory Results - last 24 hr 01/14/17 01/14/17 01/14/17 06:35 11:31 17:51 WBC RBC Hgb Hct MCV MCH MCHC RDW Plt Count MPV Neut % (Auto) Lymph % (Auto) Luna % (Auto) Eos % (Auto) Baso % (Auto) Neut # Lymph # Luna # Eos # Baso # Neutrophils % (Manual) 90 H Band Neutrophils % 2 Lymphocytes % (Manual) 7 L Monocytes % (Manual) 1 Eosinophils % (Manual) Basophils % (Manual) Platelet Estimate Normal Large Platelets Giant Platelets RBC Morphology Normal Hypochromasia (manual) Poikilocytosis (manual Anisocytosis (manual) Puncture Site pCO2 pO2 HCO3 ABG pH ABG Total CO2 ABG O2 Saturation ABG Base Excess ABG Hemoglobin ABG Carboxyhemoglobin POC ABG HHb (Measured) ABG Methemoglobin Mono Test A-a O2 Difference Respiratory Index Hgb O2 Saturation Mechanical Rate FiO2 Tidal Volume PEEP Sodium Potassium Chloride Carbon Dioxide Anion Gap BUN Creatinine Est GFR ( Amer) Est GFR (Non-Af Amer) POC Glucose (mg/dL) 164 H 135 H Random Glucose Calcium Phosphorus Magnesium Total Bilirubin AST ALT Alkaline Phosphatase Total Protein Albumin Globulin Albumin/Globulin Ratio 01/15/17 01/15/17 01/15/17 01:01 04:58 05:19 WBC RBC Hgb Hct MCV MCH MCHC RDW Plt Count MPV Neut % (Auto) Lymph % (Auto) Luna % (Auto) Eos % (Auto) Baso % (Auto) Neut # Lymph # Luna # Eos # Baso # Neutrophils % (Manual) Band Neutrophils % Lymphocytes % (Manual) Monocytes % (Manual) Eosinophils % (Manual) Basophils % (Manual) Platelet Estimate Large Platelets Giant Platelets RBC Morphology Hypochromasia (manual) Poikilocytosis (manual Anisocytosis (manual) Puncture Site Lrad pCO2 51 H pO2 92 HCO3 32.6 H ABG pH 7.45 ABG Total CO2 37.0 H ABG O2 Saturation 98.5 H ABG Base Excess 9.9 H ABG Hemoglobin 11.1 L ABG Carboxyhemoglobin 1.9 H POC ABG HHb (Measured) 1.5 ABG Methemoglobin 1.1 Mono Test Pos A-a O2 Difference 129.0 Respiratory Index 1.4 Hgb O2 Saturation 95.5 Mechanical Rate 16 FiO2 40.0 Tidal Volume 500 PEEP 5 Sodium Potassium Chloride Carbon Dioxide Anion Gap BUN Creatinine Est GFR ( Amer) Est GFR (Non-Af Amer) POC Glucose (mg/dL) 154 H 181 H Random Glucose Calcium Phosphorus Magnesium Total Bilirubin AST ALT Alkaline Phosphatase Total Protein Albumin Globulin Albumin/Globulin Ratio 01/15/17 06:43 WBC 11.4 H RBC 3.91 L Hgb 11.1 L Hct 35.1 MCV 89.7 MCH 28.2 MCHC 31.5 L RDW 14.2 Plt Count 180 MPV 11.0 Neut % (Auto) 85.6 H Lymph % (Auto) 4.7 L Luna % (Auto) 7.2 Eos % (Auto) 1.3 Baso % (Auto) 1.2 Neut # 9.8 H Lymph # 0.5 L Luna # 0.8 Eos # 0.2 Baso # 0.1 Neutrophils % (Manual) 84 H Band Neutrophils % 2 Lymphocytes % (Manual) 4 L Monocytes % (Manual) 6 Eosinophils % (Manual) 3 Basophils % (Manual) 1 Platelet Estimate Normal Large Platelets Present Giant Platelets Present RBC Morphology Hypochromasia (manual) Slight Poikilocytosis (manual Slight Anisocytosis (manual) Slight Puncture Site pCO2 pO2 HCO3 ABG pH ABG Total CO2 ABG O2 Saturation ABG Base Excess ABG Hemoglobin ABG Carboxyhemoglobin POC ABG HHb (Measured) ABG Methemoglobin Mono Test A-a O2 Difference Respiratory Index Hgb O2 Saturation Mechanical Rate FiO2 Tidal Volume PEEP Sodium 149 H Potassium 3.7 Chloride 109 H Carbon Dioxide 30 Anion Gap 14 BUN 29 H Creatinine 1.0 Est GFR ( Amer) > 60 Est GFR (Non-Af Amer) > 60 POC Glucose (mg/dL) Random Glucose 159 H Calcium 9.2 Phosphorus 2.8 Magnesium 2.9 H Total Bilirubin 0.5 AST 33 ALT 25 Alkaline Phosphatase 84 Total Protein 6.5 Albumin 3.2 L Globulin 3.3 Albumin/Globulin Ratio 1.0 Fingerstick Blood Sugar Results: 181 Review of Systems - Review of Systems Systems not reviewed;Unavailable: Intubated Assessment/Plan - Assessment and Plan (Free Text) Assessment: 76 year old male of descent, with PMHx of afib (on xarelto), presenting with new onset weakness and respiratory distress. Pt intubated and sedated. CT scan shows left basal intraparenchymal bleed. Pleural effusion on right, will need thoracentesis. Plan: Neuro: Pt intubated, daily sedation vacation. - Precedex drip CT Head (01/09/17): Left intraparenchymal hemorrhage without midline shift (see full report) - repeat CT (01/09/17): stable hemorrhage (see full report) - repeat 24hr CT (01/10/17): no new hemorrhage. Redemonstrated large left BG hemorrhage surrounded by edema and/or necrotic brain tissue. Mild mass effect. ( see full report). Decreased movement of right side; minimal movement of RUE Dr Segura, Neurology, consulted: help appreciated - PCC (Kcentra) treatment completed - head of bed to 30 degrees - Stable CT head: ASA 325mg PO Daily Dr. Palmer, Neurosurgery, consulted: help appreciated - No intervention at this time Elevated temp (100.3) on 01/10 - Sputum Cx (01/10/17): Normal amando - Urine Cx (01/10/17): Enterococcus Faecalis - Blood cx (01/10/17): No growth for 3 days x 2 - MRSA (01/09/17): Not detected Endo: Hgb A1c: 6.5 Accuchecks ACHS ISS - low CV: Hx of atrial fibrillation - EKG on presentation: Afib w. RVR (rate 108). Left axis deviation. - Hold Home med Xarelto 20mg Daily Digoxin level (01/10/17): < 0.4 - Loaded, then restarted home Digoxin 0.1mg IVP CAD - Crestor 10mg PO HS Pulm: Pt intubated. Still mild hypoxia, continuing diuresis for pulmonary edema. Vent settings: TV 500, Rate 16, FiO2 40, PEEP 5 Pleural effusions: CXR (01/15/17) Stable consolidative changes primarily affecting RLL. Small to moderate right pleural effusion. (see full report) CT Chest/Abd/Pelvis (01/14/17): Cardiomegaly. Right greater than left small bilateral pleural effusions with consolidation. Scattered emphysematous changes. Pulmonary venous congestion. Gallbladder wall thickening, pericholecystic edema. Absent Right kidney. Bilateral adrenal gland hypertrophy. Tiny fat containing umbilical hernia. (see full report) - Cefepime 1gm IV Q8H (Day 5) - Azithromycin 500mg IV Daily (Day 2) Pt for thoracentesis, this AM - f/u cytology Duonebs Q6H HERMILO GI: Started tubefeeding: diabetisource - At Goal: 45 ml/hr CT Chest/Abd/Pelvis (01/14/17): Cardiomegaly. Right greater than left small bilateral pleural effusions with consolidation. Scattered emphysematous changes. Pulmonary venous congestion. Gallbladder wall thickening, pericholecystic edema. Absent Right kidney. Bilateral adrenal gland hypertrophy. Tiny fat containing umbilical hernia. (see full report) LFTs WNL : BUN/Cr WNL Hypernatremia - 149 on AM labs Hypophosphatemia: - 2.8 on AM labs - Continue Neutraphos (final dose tomorrow AM) Sanchez catheter in place Monitor I/Os ID: Leukocytosis: 11/4, slightly elevated from yesterday - left shift, with 2 bands - continue Cefepime 1gm Q8H (day 5) for possible VAP Urine Cx (01/10/17): Enterococcus Faecalis - continue Azithromycin 500mg IV Daily (Day 2) Hem/Onc: On home Xarelto - Kcentra completed for stabilization of ICH. - can restart Xarelto or alternative [facility] stroke prophylaxis at least 6 weeks from bleed stabilization Mskltl: PT/OT eval Prophylaxis: DVT: SCDs VTE: contraindicated due to active BG bleed GI: Protonix IV <Grover Ray S - Last Filed: 01/15/17 16:02> CCU Objective - Vital Signs / Intake & Output Vital Signs (Last 4 hours): Vital Signs Pulse Resp BP Pulse Ox 01/15/17 13:18 75 16 152/88 H 100 01/15/17 13:00 73 13 100 01/15/17 12:18 71 19 152/81 H 100 01/15/17 12:15 64 15 149/84 100 Intake and Output (Last 8hrs): Intake & Output 01/15/17 01/15/17 01/15/17 06:59 14:59 22:59 Intake Total 421.5 412.3 Output Total 600 475 Balance -178.5 -62.7 Weight 212 lb Intake: Intake, IV Amount 101.5 132.3 Right Antecubital 101.5 132.3 Tube Feeding 320 280 Output: Urine 600 475 Urethral (Sanchez) 600 475 - Medications Active Medications: Active Medications Generic Name Dose Route Start Last Admin Trade Name Freq PRN Reason Stop Dose Admin Acetaminophen 650 mg 01/10/17 23:50 01/12/17 16:20 Tylenol 650mg/20.3ml Solution Ud PO 650 mg Q6 PRN Administration Fever >100.4 F Albuterol/Ipratropium 3 ml 01/12/17 14:00 01/15/17 13:43 Duoneb 3 Mg/0.5 Mg (3 Ml) Ud INH Not Given RQ6 HERMILO Aspirin 81 mg 01/12/17 10:00 01/15/17 09:48 Aspirin Chewable PO 81 mg DAILY HERMILO Administration Digoxin 0.1 mg 01/11/17 18:00 01/14/17 18:15 Lanoxin IVP 0.1 mg DAILY@1800 HERMILO Administration Cefepime HCl 1 gm/ Dextrose 50 mls @ 100 mls/hr 01/11/17 12:00 01/15/17 12:35 IVPB 100 mls/hr Q8H HERMILO Administration Dexmedetomidine HCl 200 mcg/ 50 mls @ 4.71 mls/hr 01/13/17 10:16 01/15/17 06:23 Sodium Chloride IVPB 0.8 mcg/kg/hr TITR PRN Titration Sedation Protocol 0.2 MCG/KG/HR Azithromycin 500 mg/ Sodium 250 mls @ 250 mls/hr 01/14/17 11:15 01/15/17 11:02 Chloride IVPB 250 mls/hr DAILY@1100 HERMILO Administration Insulin Human Regular 0 unit 01/09/17 18:00 01/15/17 13:25 Novolin R SC Not Given Q6H HERMILO Protocol Pantoprazole Sodium 40 mg 01/09/17 12:15 01/15/17 11:40 Protonix Inj IVP 40 mg DAILY HERMILO Administration Potassium Phos/Sodium Phos 1 pkt 01/13/17 14:00 01/15/17 14:16 Neutra-Phos PO 01/16/17 14:01 1 pkt TID HERMILO Administration Rosuvastatin Calcium 10 mg 01/10/17 22:00 01/14/17 21:35 Crestor PO 10 mg HS HERMILO Administration - Patient Studies Lab Studies: Microbiology Studies 01/10/17 12:30 Blood Culture - Final Blood NO GROWTH AFTER 5 DAYS Gram Stain - Final 01/10/17 12:00 Blood Culture - Final Blood NO GROWTH AFTER 5 DAYS Gram Stain - Final TEST NOT PERFORMED Lab Studies 01/15/17 01/15/17 01/15/17 Range/Units 12:14 06:43 05:19 WBC 11.4 H (4.8-10.8) K/uL RBC 3.91 L (4.40-5.90) Mil/uL Hgb 11.1 L (12.0-18.0) g/dL Hct 35.1 (35.0-51.0) % MCV 89.7 (80.0-94.0) fL MCH 28.2 (27.0-31.0) pg MCHC 31.5 L (33.0-37.0) g/dL RDW 14.2 (11.5-14.5) % Plt Count 180 (130-400) K/uL MPV 11.0 (7.2-11.7) fL Neut % (Auto) 85.6 H (50.0-75.0) % Lymph % (Auto) 4.7 L (20.0-40.0) % Luna % (Auto) 7.2 (0.0-10.0) % Eos % (Auto) 1.3 (0.0-4.0) % Baso % (Auto) 1.2 (0.0-2.0) % Neut # 9.8 H (1.8-7.0) K/uL Lymph # 0.5 L (1.0-4.3) K/uL Luna # 0.8 (0.0-0.8) K/uL Eos # 0.2 (0.0-0.7) K/uL Baso # 0.1 (0.0-0.2) K/uL Neutrophils % (Manual) 84 H (50-75) % Band Neutrophils % 2 (0-2) % Lymphocytes % (Manual) 4 L (20-40) % Monocytes % (Manual) 6 (0-10) % Eosinophils % (Manual) 3 (0-4) % Basophils % (Manual) 1 (0-2) % Platelet Estimate Normal (NORMAL) Large Platelets Present Giant Platelets Present Hypochromasia (manual) Slight Poikilocytosis (manual Slight Anisocytosis (manual) Slight Puncture Site Lrad pCO2 51 H (35-45) mm/Hg pO2 92 (80-100) mm/Hg HCO3 32.6 H (21-28) mmol/L ABG pH 7.45 (7.35-7.45) ABG Total CO2 37.0 H (22-28) mmol/L ABG O2 Saturation 98.5 H (95-98) % ABG Base Excess 9.9 H (-2.0-3.0) mmol/L ABG Hemoglobin 11.1 L (11.7-17.4) g/dL ABG Carboxyhemoglobin 1.9 H (0.5-1.5) % POC ABG HHb (Measured) 1.5 (0.0-5.0) % ABG Methemoglobin 1.1 (0.0-3.0) % Mono Test Pos A-a O2 Difference 129.0 mm/Hg Respiratory Index 1.4 Hgb O2 Saturation 95.5 (95.0-98.0) % Mechanical Rate 16 FiO2 40.0 % Tidal Volume 500 PEEP 5 Sodium 149 H (132-148) mmol/L Potassium 3.7 (3.6-5.2) mmol/L Chloride 109 H (98-107) mmol/L Carbon Dioxide 30 (22-30) mmol/L Anion Gap 14 (10-20) BUN 29 H (9-20) mg/dL Creatinine 1.0 (0.8-1.5) MG/DL Est GFR ( Amer) > 60 Est GFR (Non-Af Amer) > 60 POC Glucose (mg/dL) 138 H (65-110) mg/dL Random Glucose 159 H (75-110) mg/dL Calcium 9.2 (8.6-10.4) mg/dl Phosphorus 2.8 (2.5-4.5) mg/dL Magnesium 2.9 H (1.6-2.3) mg/dL Total Bilirubin 0.5 (0.2-1.3) mg/dL AST 33 (17-59) U/L ALT 25 (21-72) U/L Alkaline Phosphatase 84 (38-126) U/L Total Protein 6.5 (6.3-8.3) g/dL Albumin 3.2 L (3.5-5.0) g/dL Globulin 3.3 (2.2-3.9) gm/dL Albumin/Globulin Ratio 1.0 (1.0-2.1) 01/15/17 01/15/17 01/14/17 Range/Units 04:58 01:01 17:51 WBC (4.8-10.8) K/uL RBC (4.40-5.90) Mil/uL Hgb (12.0-18.0) g/dL Hct (35.0-51.0) % MCV (80.0-94.0) fL MCH (27.0-31.0) pg MCHC (33.0-37.0) g/dL RDW (11.5-14.5) % Plt Count (130-400) K/uL MPV (7.2-11.7) fL Neut % (Auto) (50.0-75.0) % Lymph % (Auto) (20.0-40.0) % Luna % (Auto) (0.0-10.0) % Eos % (Auto) (0.0-4.0) % Baso % (Auto) (0.0-2.0) % Neut # (1.8-7.0) K/uL Lymph # (1.0-4.3) K/uL Luna # (0.0-0.8) K/uL Eos # (0.0-0.7) K/uL Baso # (0.0-0.2) K/uL Neutrophils % (Manual) (50-75) % Band Neutrophils % (0-2) % Lymphocytes % (Manual) (20-40) % Monocytes % (Manual) (0-10) % Eosinophils % (Manual) (0-4) % Basophils % (Manual) (0-2) % Platelet Estimate (NORMAL) Large Platelets Giant Platelets Hypochromasia (manual) Poikilocytosis (manual Anisocytosis (manual) Puncture Site pCO2 (35-45) mm/Hg pO2 (80-100) mm/Hg HCO3 (21-28) mmol/L ABG pH (7.35-7.45) ABG Total CO2 (22-28) mmol/L ABG O2 Saturation (95-98) % ABG Base Excess (-2.0-3.0) mmol/L ABG Hemoglobin (11.7-17.4) g/dL ABG Carboxyhemoglobin (0.5-1.5) % POC ABG HHb (Measured) (0.0-5.0) % ABG Methemoglobin (0.0-3.0) % Mono Test A-a O2 Difference mm/Hg Respiratory Index Hgb O2 Saturation (95.0-98.0) % Mechanical Rate FiO2 % Tidal Volume PEEP Sodium (132-148) mmol/L Potassium (3.6-5.2) mmol/L Chloride (98-107) mmol/L Carbon Dioxide (22-30) mmol/L Anion Gap (10-20) BUN (9-20) mg/dL Creatinine (0.8-1.5) MG/DL Est GFR ( Amer) Est GFR (Non-Af Amer) POC Glucose (mg/dL) 181 H 154 H 135 H (65-110) mg/dL Random Glucose (75-110) mg/dL Calcium (8.6-10.4) mg/dl Phosphorus (2.5-4.5) mg/dL Magnesium (1.6-2.3) mg/dL Total Bilirubin (0.2-1.3) mg/dL AST (17-59) U/L ALT (21-72) U/L Alkaline Phosphatase (38-126) U/L Total Protein (6.3-8.3) g/dL Albumin (3.5-5.0) g/dL Globulin (2.2-3.9) gm/dL Albumin/Globulin Ratio (1.0-2.1) Laboratory Results - last 24 hr 01/14/17 01/15/17 01/15/17 17:51 01:01 04:58 WBC RBC Hgb Hct MCV MCH MCHC RDW Plt Count MPV Neut % (Auto) Lymph % (Auto) Luna % (Auto) Eos % (Auto) Baso % (Auto) Neut # Lymph # Luna # Eos # Baso # Neutrophils % (Manual) Band Neutrophils % Lymphocytes % (Manual) Monocytes % (Manual) Eosinophils % (Manual) Basophils % (Manual) Platelet Estimate Large Platelets Giant Platelets Hypochromasia (manual) Poikilocytosis (manual Anisocytosis (manual) Puncture Site pCO2 pO2 HCO3 ABG pH ABG Total CO2 ABG O2 Saturation ABG Base Excess ABG Hemoglobin ABG Carboxyhemoglobin POC ABG HHb (Measured) ABG Methemoglobin Mono Test A-a O2 Difference Respiratory Index Hgb O2 Saturation Mechanical Rate FiO2 Tidal Volume PEEP Sodium Potassium Chloride Carbon Dioxide Anion Gap BUN Creatinine Est GFR ( Amer) Est GFR (Non-Af Amer) POC Glucose (mg/dL) 135 H 154 H 181 H Random Glucose Calcium Phosphorus Magnesium Total Bilirubin AST ALT Alkaline Phosphatase Total Protein Albumin Globulin Albumin/Globulin Ratio 01/15/17 01/15/17 01/15/17 05:19 06:43 12:14 WBC 11.4 H RBC 3.91 L Hgb 11.1 L Hct 35.1 MCV 89.7 MCH 28.2 MCHC 31.5 L RDW 14.2 Plt Count 180 MPV 11.0 Neut % (Auto) 85.6 H Lymph % (Auto) 4.7 L [place] % (Auto) 7.2 Eos % (Auto) 1.3 Baso % (Auto) 1.2 Neut # 9.8 H Lymph # 0.5 L [place] # 0.8 Eos # 0.2 Baso # 0.1 Neutrophils % (Manual) 84 H Band Neutrophils % 2 Lymphocytes % (Manual) 4 L Monocytes % (Manual) 6 Eosinophils % (Manual) 3 Basophils % (Manual) 1 Platelet Estimate Normal Large Platelets Present Giant Platelets Present Hypochromasia (manual) Slight Poikilocytosis (manual Slight Anisocytosis (manual) Slight Puncture Site [place] pCO2 51 H pO2 92 HCO3 32.6 H ABG pH 7.45 ABG Total CO2 37.0 H ABG O2 Saturation 98.5 H ABG Base Excess 9.9 H ABG Hemoglobin 11.1 L ABG Carboxyhemoglobin 1.9 H POC ABG HHb (Measured) 1.5 ABG Methemoglobin 1.1 Mono Test Pos A-a O2 Difference 129.0 Respiratory Index 1.4 Hgb O2 Saturation 95.5 Mechanical Rate 16 FiO2 40.0 Tidal Volume 500 PEEP 5 Sodium 149 H Potassium 3.7 Chloride 109 H Carbon Dioxide 30 Anion Gap 14 BUN 29 H Creatinine 1.0 Est GFR ( Amer) > 60 Est GFR (Non-Af Amer) > 60 POC Glucose (mg/dL) 138 H Random Glucose 159 H Calcium 9.2 Phosphorus 2.8 Magnesium 2.9 H Total Bilirubin 0.5 AST 33 ALT 25 Alkaline Phosphatase 84 Total Protein 6.5 Albumin 3.2 L Globulin 3.3 Albumin/Globulin Ratio 1.0 Attending/Attestation - Attestation I have personally seen and examined this patient.: Yes I have fully participated in the care of the patient.: Yes I have reviewed all pertinent clinical information: Yes Notes (Text): 01/15/17 16:00 Patient seen and examined in the intensive care unit. Case discussed with house staff in the morning rounds. Remains intubated on ventilatory support response to vocal commands by opening eyes Not much fluid under ultrasound for thoracentesis Continue antibiotics and present treatment weaning trial in am.
--- NOTE | 2017-01-15 08:53 | RAD ---
HISTORY: intubated, f/u pleural effusion COMPARISON: 01/14/2017 FINDINGS: LUNGS: Lines and tubes in stable position. Moderate to severe venous congestion with prominent bibasilar airspace opacities; right greater than left. Small to moderate right pleural effusion. Bilateral hilar prominence. PLEURA: As above. CARDIOVASCULAR: Cardiomegaly. Calcification at the aortic knob. OSSEOUS STRUCTURES: Degenerative changes in the spine and shoulders. VISUALIZED UPPER ABDOMEN: Normal. OTHER FINDINGS: None. IMPRESSION: Lines and tubes in stable position. Moderate to severe venous congestion with prominent bibasilar airspace opacities; right greater than left. Small to moderate right pleural effusion. Bilateral hilar prominence.
[2017-01-15] MEDS: Potassium & Sodium Phosphate PO SCH ×3 (09:50→17:00)
[2017-01-15] MEDS: Azithromycin 500 MG in Sodium Chloride 0.9% 250 ML IVPB SCH (11:02)
--- NOTE | 2017-01-15 15:02 | US ---
Limited right shaun thorax focused ultrasound History: Pleural effusion. Comparison: X-ray dated 01/15/2017 Technique: Limited real-time sonography was performed through the right shaun thorax. Findings: Small right pleural effusion was noted at the level of the right shaun thorax. Not enough fluid was thought to be present to demarcate for a chest tube insertion. Impression: Small right pleural effusion was noted at the level of the right shaun thorax. Not enough fluid was thought to be present to demarcate for a chest tube insertion.
[2017-01-15] MEDS: Digoxin 500 mcg/2ml (0.5 mg/2ml) Inj IVP SCH (16:59)
--- NOTE | 2017-01-15 19:00 | CP.PCM.PN ---
Subjective - Date & Time of Evaluation Date of Evaluation: 01/15/17 Time of Evaluation: 14:40 - Subjective Subjective: clinically same Objective - Vital Signs/Intake and Output Vital Signs (last 24 hours): Temp Pulse Resp BP Pulse Ox 97.2 F L 67 18 174/105 H 100 01/15/17 16:00 01/15/17 18:00 01/15/17 18:00 01/15/17 17:31 01/15/17 18:00 Intake and Output: 01/15/17 01/15/17 06:59 18:59 Intake Total 769.1 706.8 Output Total 800 855 Balance -30.9 -148.2 - Medications Medications: Current Medications Acetaminophen (Tylenol 650mg/20.3ml Solution Ud) 650 mg PO Q6 PRN PRN Reason: Fever >100.4 F Last Admin: 01/12/17 16:20 Dose: 650 mg Albuterol/Ipratropium (Duoneb 3 Mg/0.5 Mg (3 Ml) Ud) 3 ml INH RQ6 [facility] Last Admin: 01/15/17 13:43 Dose: Not Given Aspirin (Aspirin Chewable) 81 mg PO DAILY [facility] Last Admin: 01/15/17 09:48 Dose: 81 mg Digoxin (Lanoxin) 0.1 mg IVP DAILY@1800 [facility] Last Admin: 01/15/17 16:59 Dose: 0.1 mg Cefepime HCl 1 gm/ Dextrose 50 mls @ 100 mls/hr IVPB Q8H [facility] Last Admin: 01/15/17 12:35 Dose: 100 mls/hr Dexmedetomidine HCl 200 mcg/ (Sodium Chloride) 50 mls @ 4.71 mls/hr IVPB TITR PRN; Protocol; 0.2 MCG/KG/HR PRN Reason: Sedation Last Titration: 01/15/17 06:23 Dose: 0.8 mcg/kg/hr Azithromycin 500 mg/ Sodium (Chloride) 250 mls @ 250 mls/hr IVPB DAILY@1100 [facility] Last Admin: 01/15/17 11:02 Dose: 250 mls/hr Insulin Human Regular (Novolin R) 0 unit SC Q6H [facility] PRN Reason: Protocol Last Admin: 01/15/17 13:25 Dose: Not Given Pantoprazole Sodium (Protonix Inj) 40 mg IVP DAILY [facility] Last Admin: 01/15/17 11:40 Dose: 40 mg Potassium Phos/Sodium Phos (Neutra-Phos) 1 pkt PO TID [facility] Stop: 01/16/17 14:01 Last Admin: 01/15/17 17:00 Dose: 1 pkt Rosuvastatin Calcium (Crestor) 10 mg PO HS [facility] Last Admin: 01/14/17 21:35 Dose: 10 mg - Labs Labs: 01/15/17 06:43 01/15/17 06:43 PT 12.3 SECONDS (9.7-12.2) H 01/09/17 09:29 INR 1.1 01/09/17 09:29 APTT 31 SECONDS (21-34) 01/09/17 09:29 - Constitutional Appears: Well - Head Exam Head Exam: ATRAUMATIC, NORMAL INSPECTION, NORMOCEPHALIC - Eye Exam Eye Exam: EOMI, Normal appearance, PERRL Pupil Exam: NORMAL ACCOMODATION, PERRL - ENT Exam ENT Exam: Mucous Membranes Moist, Normal Exam - Neck Exam Neck Exam: Full ROM, Normal Inspection. absent: Lymphadenopathy - Respiratory Exam Respiratory Exam: Decreased Breath Sounds - Cardiovascular Exam Cardiovascular Exam: REGULAR RHYTHM, +S1, +S2 - GI/Abdominal Exam GI & Abdominal Exam: Soft, Diminished Bowel Sounds - Rectal Exam Rectal Exam: Deferred Assessment and Plan (1) Atrial fibrillation Status: Acute (2) Atrial fibrillation with slow ventricular response Status: Acute (3) Bradycardia Status: Acute (4) CHF (congestive heart failure) Status: Acute (5) COPD (chronic obstructive pulmonary disease) Status: Acute (6) COPD exacerbation Status: Acute (7) Epistaxis Status: Acute (8) Epistaxis Status: Acute (9) Hypertriglyceridemia Status: Acute (10) Intraparenchymal hemorrhage of brain Status: Acute - Assessment and Plan (Free Text) Plan: f/u with CT surgen for thoracentesis continue Mx as ordered
[2017-01-16] MEDS: Dexmedetomidine Hydrochloride 200 MCG in Sodium Chloride 0.9% 48 ML IVPB PRN ×5 (01:30→23:30)
[2017-01-16] MEDS: Albuterol-Ipratrop 3 mg / 0.5 (3 ml) UD INH SCH ×4 (03:14→19:37)
[2017-01-16 05:37] LABS: ABG ALLEN TEST POS; ABG MECHANICAL RATE 16; ATERIAL BLOOD GAS PEEP 5; CARBOXYHEMOGLOBIN 2.1 % (0.5-1.5); DRAW SITE RR; HHB 1.8 % (0.0-5.0); METHEMOGLOBIN 1.2 % (0.0-3.0)
[2017-01-16] MEDS: (Novolin R) Insulin Human Regular 100 units/ml vial SC SCH ×3 (05:55→18:24)
[2017-01-16 06:41] LABS: BASO # 0.1 K/uL (0.0-0.2); BASO % 0.9 % (0.0-2.0); EOS # 0.4 K/uL (0.0-0.7); EOS % 3.3 % (0.0-4.0); HEMATOCRIT 35.9 % (35.0-51.0); LYMPH # 0.9 K/uL (1.0-4.3); LYMPH % 7.7 % (20.0-40.0); MEAN CORPUSCULAR HEMOGLOBIN 27.8 pg (27.0-31.0); MEAN CORPUSCULAR HGB CONC 31.2 g/dL (33.0-37.0); MEAN PLATELET VOLUME 10.5 fL (7.2-11.7); MONO # 1.1 K/uL (0.0-0.8); MONO % 9.6 % (0.0-10.0); PLATELET COUNT 194 K/uL (130-400); RED CELL DISTRIBUTION WIDTH 14.3 % (11.5-14.5); WHITE BLOOD COUNT 11.2 K/uL (4.8-10.8)
[2017-01-16 06:48] LABS: CHLORIDE 109 mmol/L (98-107); SODIUM 150 mmol/L (132-148)
[2017-01-16 06:51] LABS: ALB/GLOB RATIO 0.9 (1.0-2.1); ALKALINE PHOSPHATASE 81 U/L (38-126); ALT/SGPT 27 U/L (21-72); AST/SGOT 23 U/L (17-59); BILIRUBIN,TOTAL 0.6 mg/dL (0.2-1.3); BLOOD UREA NITROGEN 32 mg/dL (9-20); CALCIUM 9.1 mg/dl (8.6-10.4); CARBON DIOXIDE 32 mmol/L (22-30); GFR AFRICAN-AMERICAN > 60; GLUCOSE,RANDOM 143 mg/dL (75-110); PHOSPHOROUS 3.3 mg/dL (2.5-4.5); TOTAL PROTEIN 6.7 g/dL (6.3-8.3)
--- NOTE | 2017-01-16 08:00 | PN ---
DATE: 01/15/2017 The patient is on ventilator, supportive care, status post CVA ____. Tam Koroma MD cc: [id number] TT: 01/15/2017 11:15:05 Confirmation # [id number] Dictation # [id number] mn
[2017-01-16 08:46] LABS: BASOPHIL 1 % (0-2); NEUTROPHIL 82 % (50-75); REACTIVE LYMPHOCYTES 1 % (0-0); TOTAL CELLS COUNTED 100
--- NOTE | 2017-01-16 09:42 | RAD ---
HISTORY: intubated COMPARISON: Chest x-ray performed 01/15/17 TECHNIQUE: Chest, one view. FINDINGS: Examination limited by habitus and hypoinflation. Distal tip of the endotracheal tube terminates above the level of the deya which is not well visualized. Nasogastric tube extends to the expected location of the stomach. LUNGS: Moderate to severe pulmonary venous congestion. Probable small bilateral pleural effusions. No definite pneumothorax. Please note that chest x-ray has limited sensitivity for the detection of pulmonary masses. CARDIOVASCULAR: Cardiomegaly. Ectatic aorta. Atherosclerotic calcifications of the aorta. OSSEOUS STRUCTURES: Degenerative changes. Acromioclavicular arthropathy. VISUALIZED UPPER ABDOMEN: Unremarkable. OTHER FINDINGS: None. IMPRESSION: Distal tip of the endotracheal tube terminates above the level of the deya which is not well visualized. Nasogastric tube extends to the expected location of the stomach. Moderate to severe pulmonary venous congestion. Probable small bilateral pleural effusions. Enlargement of the cardiomediastinal silhouette, similar to prior study.
--- NOTE | 2017-01-16 11:00 | CP.PCM.CON ---
History of Present Illness - History of Present Illness History of Present Illness: reason for consultation: respiratory failure on ventilatory support 76 year old male well-known to me with history of COPD, atrial fibrillation ( for which he takes Xarelto) and cataracts, who was brought to ED via BLS for respiratory distress and new onset of weakness on right side. EMS intubated in the field. CODE STROKE was initiated at time of arrival in the ED and CT head showed left basal ganglia hemorrhage. Neurosurgeon, indicated there was no role for surgery. Pt is intubated and sedated and unable to provide ROS at this time. cat SCAN OF THE CHEST CONSISTENT WITH SMALL RIGHT PLEURAL EFFUSION PMHx: afib, COPD PSHx: Pterygium excision, cataracts (2012) SHx: PREVIOUS HISTORY OF SMOKING Allergies: NKA Review of Systems - Review of Systems Systems not reviewed;Unavailable: Intubated Past Patient History - Past Medical History & Family History Past Medical History?: Yes - Past Social History Smoking Status: Former Smoker - CARDIAC Hx Cardiac Disorders: Yes Hx Atrial Fibrillation: Yes - HEENT Hx Cataracts: Yes Other/Comment: Pterygium rremoval - RENAL Hx Chronic Kidney Disease: No - ENDOCRINE/METABOLIC Hx Endocrine Disorders: No - HEMATOLOGICAL/ONCOLOGICAL Hx Blood Disorders: No - INTEGUMENTARY Hx Dermatological Problems: No - MUSCULOSKELETAL/RHEUMATOLOGICAL Hx Falls: Yes - GASTROINTESTINAL Hx Gastrointestinal Disorders: No - GENITOURINARY/GYNECOLOGICAL Hx Genitourinary Disorders: No - PSYCHIATRIC Hx Substance Use: No - ANESTHESIA Hx Anesthesia: Yes Hx Anesthesia Reactions: No Meds Allergies/Adverse Reactions: Allergies Allergy/AdvReac Type Severity Reaction Status Date / Time No Known Allergies Allergy Verified 08/11/13 08:26 - Medications Medications: Current Medications Acetaminophen (Tylenol 650mg/20.3ml Solution Ud) 650 mg PO Q6 PRN PRN Reason: Fever >100.4 F Last Admin: 01/12/17 16:20 Dose: 650 mg Albuterol/Ipratropium (Duoneb 3 Mg/0.5 Mg (3 Ml) Ud) 3 ml INH RQ6 [facility] Last Admin: 01/16/17 08:38 Dose: 3 ml Aspirin (Aspirin Chewable) 81 mg PO DAILY [facility] Last Admin: 01/15/17 09:48 Dose: 81 mg Digoxin (Lanoxin) 0.1 mg IVP DAILY@1800 [facility] Last Admin: 01/15/17 16:59 Dose: 0.1 mg Cefepime HCl 1 gm/ Dextrose 50 mls @ 100 mls/hr IVPB Q8H [facility] Last Admin: 01/16/17 03:47 Dose: 100 mls/hr Dexmedetomidine HCl 200 mcg/ (Sodium Chloride) 50 mls @ 4.71 mls/hr IVPB TITR PRN; Protocol; 0.2 MCG/KG/HR PRN Reason: Sedation Last Admin: 01/16/17 07:03 Dose: 18.9 mls/hr Azithromycin 500 mg/ Sodium (Chloride) 250 mls @ 250 mls/hr IVPB DAILY@1100 [facility] Last Admin: 01/15/17 11:02 Dose: 250 mls/hr Insulin Human Regular (Novolin R) 0 unit SC Q6H [facility] PRN Reason: Protocol Last Admin: 01/16/17 05:55 Dose: 1 unit Losartan Potassium (Cozaar) 50 mg PO DAILY [facility] Metoprolol Tartrate (Lopressor) 25 mg PO BID [facility] Pantoprazole Sodium (Protonix Inj) 40 mg IVP DAILY [facility] Last Admin: 01/15/17 11:40 Dose: 40 mg Potassium Phos/Sodium Phos (Neutra-Phos) 1 pkt PO TID [facility] Stop: 01/16/17 14:01 Last Admin: 01/15/17 17:00 Dose: 1 pkt Rosuvastatin Calcium (Crestor) 10 mg PO HS [facility] Last Admin: 01/15/17 20:55 Dose: 10 mg Physical Exam - Head Exam Head Exam: ATRAUMATIC, NORMOCEPHALIC - ENT Exam ENT Exam: Mucous Membranes Moist - Neck Exam Neck exam: Positive for: Normal Inspection - Respiratory Exam Respiratory Exam: Decreased Breath Sounds - Cardiovascular Exam Cardiovascular Exam: Irregular Rhythm - GI/Abdominal Exam GI & Abdominal Exam: Distended, Normal Bowel Sounds - Extremities Exam Extremities exam: Positive for: pedal edema - Neurological Exam Neurological exam: Altered Results - Vital Signs Recent Vital Signs: Last Vital Signs Temp 97.4 F L 01/16/17 00:00 Pulse 47 L 01/16/17 08:24 Resp 16 01/16/17 08:24 BP 140/78 01/16/17 08:06 Pulse Ox 100 01/16/17 08:24 - Labs Result Diagrams: 01/16/17 06:30 01/16/17 06:30 Labs: Laboratory Results - last 24 hr 01/15/17 01/15/17 01/15/17 12:14 17:57 23:45 WBC RBC Hgb Hct MCV MCH MCHC RDW Plt Count MPV Neut % (Auto) Lymph % (Auto) [place] % (Auto) Eos % (Auto) Baso % (Auto) Neut # Lymph # [place] # Eos # Baso # Neutrophils % (Manual) Lymphocytes % (Manual) Reactive Lymphs % Monocytes % (Manual) Basophils % (Manual) Platelet Estimate Hypochromasia (manual) Poikilocytosis (manual Anisocytosis (manual) Puncture Site pCO2 pO2 HCO3 ABG pH ABG Total CO2 ABG O2 Saturation ABG Base Excess ABG Hemoglobin ABG Carboxyhemoglobin POC ABG HHb (Measured) ABG Methemoglobin Mono Test A-a O2 Difference Respiratory Index Hgb O2 Saturation Mechanical Rate FiO2 Tidal Volume PEEP Sodium Potassium Chloride Carbon Dioxide Anion Gap BUN Creatinine Est GFR ( Amer) Est GFR (Non-Af Amer) POC Glucose (mg/dL) 138 H 130 H 149 H Random Glucose Calcium Phosphorus Magnesium Total Bilirubin AST ALT Alkaline Phosphatase Total Protein Albumin Globulin Albumin/Globulin Ratio 01/16/17 01/16/17 01/16/17 05:27 05:48 06:30 WBC 11.2 H RBC 4.04 L Hgb 11.2 L Hct 35.9 MCV 89.0 MCH 27.8 MCHC 31.2 L RDW 14.3 Plt Count 194 MPV 10.5 Neut % (Auto) 78.5 H Lymph % (Auto) 7.7 L [place] % (Auto) 9.6 Eos % (Auto) 3.3 Baso % (Auto) 0.9 Neut # 8.8 H Lymph # 0.9 L [place] # 1.1 H Eos # 0.4 Baso # 0.1 Neutrophils % (Manual) 82 H Lymphocytes % (Manual) 8 L Reactive Lymphs % 1 H Monocytes % (Manual) 8 Basophils % (Manual) 1 Platelet Estimate Normal Hypochromasia (manual) Slight Poikilocytosis (manual Slight Anisocytosis (manual) Slight Puncture Site Rr pCO2 51 H pO2 86 HCO3 33.4 H ABG pH 7.46 H ABG Total CO2 37.9 H ABG O2 Saturation 98.1 H ABG Base Excess 10.9 H ABG Hemoglobin 11.1 L ABG Carboxyhemoglobin 2.1 H POC ABG HHb (Measured) 1.8 ABG Methemoglobin 1.2 Mono Test Pos A-a O2 Difference 135.0 Respiratory Index 1.6 Hgb O2 Saturation 95.0 Mechanical Rate 16 FiO2 40.0 Tidal Volume 500 PEEP 5 Sodium 150 H Potassium 4.0 Chloride 109 H Carbon Dioxide 32 H Anion Gap 13 BUN 32 H Creatinine 1.0 Est GFR ( Amer) > 60 Est GFR (Non-Af Amer) > 60 POC Glucose (mg/dL) 162 H Random Glucose 143 H Calcium 9.1 Phosphorus 3.3 Magnesium 3.0 H Total Bilirubin 0.6 AST 23 ALT 27 Alkaline Phosphatase 81 Total Protein 6.7 Albumin 3.2 L Globulin 3.5 Albumin/Globulin Ratio 0.9 L Assessment & Plan (1) Intraparenchymal hemorrhage of brain Status: Acute Comment: continue ventilatory support and wean as tolerated. spoke with family at length. Continue nebulizer treatment and antibiotics (2) COPD (chronic obstructive pulmonary disease) Status: Acute (3) Atrial fibrillation Status: Acute
[2017-01-16] MEDS: Azithromycin 500 MG in Sodium Chloride 0.9% 250 ML IVPB SCH (11:08)
[2017-01-16] MEDS: Potassium & Sodium Phosphate PO SCH ×2 (11:09→14:19)
--- NOTE | 2017-01-16 12:53 | CP.PCM.CON ---
History of Present Illness - History of Present Illness History of Present Illness: Palliative consult for goals of care discussion Requested by Hernandez BAKER Patient is a 76 yo male found unresponsive by his neighborhood. Patient was intubated on the field and brought to ED. The CT head was significant for large intracranial bleed. Neurology was consulted and no surgical intervention was advised. CT abd/pelvis showed B/L pleural effusion and moderate to severe Pulm. Venous congestion. There was right sided weakness noted on admission. Complete Hx was not obtainable due to patient's condition. No close family around. Son Tomas ( [phone] ) was to arrive from [place]. PMH: HTN Soc. Hx: , lived alone Fam. Hx: Unknown Review of Systems - Review of Systems Systems not reviewed;Unavailable: Intubated Past Patient History - Past Medical History & Family History Past Medical History?: Yes - Past Social History Smoking Status: Former Smoker - CARDIAC Hx Cardiac Disorders: Yes Hx Atrial Fibrillation: Yes - HEENT Hx Cataracts: Yes Other/Comment: Pterygium rremoval - RENAL Hx Chronic Kidney Disease: No - ENDOCRINE/METABOLIC Hx Endocrine Disorders: No - HEMATOLOGICAL/ONCOLOGICAL Hx Blood Disorders: No - INTEGUMENTARY Hx Dermatological Problems: No - MUSCULOSKELETAL/RHEUMATOLOGICAL Hx Falls: Yes - GASTROINTESTINAL Hx Gastrointestinal Disorders: No - GENITOURINARY/GYNECOLOGICAL Hx Genitourinary Disorders: No - PSYCHIATRIC Hx Substance Use: No - ANESTHESIA Hx Anesthesia: Yes Hx Anesthesia Reactions: No Meds Allergies/Adverse Reactions: Allergies Allergy/AdvReac Type Severity Reaction Status Date / Time No Known Allergies Allergy Verified 08/11/13 08:26 - Medications Medications: Current Medications Acetaminophen (Tylenol 650mg/20.3ml Solution Ud) 650 mg PO Q6 PRN PRN Reason: Fever >100.4 F Last Admin: 01/12/17 16:20 Dose: 650 mg Albuterol/Ipratropium (Duoneb 3 Mg/0.5 Mg (3 Ml) Ud) 3 ml INH RQ6 [facility] Last Admin: 01/16/17 08:38 Dose: 3 ml Aspirin (Aspirin Chewable) 81 mg PO DAILY [facility] Last Admin: 01/16/17 11:08 Dose: 81 mg Digoxin (Lanoxin) 0.1 mg IVP DAILY@1800 [facility] Last Admin: 01/15/17 16:59 Dose: 0.1 mg Dexmedetomidine HCl 200 mcg/ (Sodium Chloride) 50 mls @ 4.71 mls/hr IVPB TITR PRN; Protocol; 0.2 MCG/KG/HR PRN Reason: Sedation Last Admin: 01/16/17 09:00 Dose: 14.15 mls/hr Azithromycin 500 mg/ Sodium (Chloride) 250 mls @ 250 mls/hr IVPB DAILY@1100 [facility] Last Admin: 01/16/17 11:08 Dose: 250 mls/hr Insulin Human Regular (Novolin R) 0 unit SC Q6H [facility] PRN Reason: Protocol Last Admin: 01/16/17 05:55 Dose: 1 unit Losartan Potassium (Cozaar) 50 mg PO DAILY [facility] Metoprolol Tartrate (Lopressor) 25 mg PO BID [facility] Pantoprazole Sodium (Protonix Inj) 40 mg IVP DAILY [facility] Last Admin: 01/16/17 11:08 Dose: 40 mg Potassium Phos/Sodium Phos (Neutra-Phos) 1 pkt PO TID [facility] Stop: 01/16/17 14:01 Last Admin: 01/16/17 11:09 Dose: 1 pkt Rosuvastatin Calcium (Crestor) 10 mg PO HS [facility] Last Admin: 01/15/17 20:55 Dose: 10 mg Physical Exam - Constitutional Appears: No Acute Distress - Head Exam Head Exam: ATRAUMATIC, NORMAL INSPECTION, NORMOCEPHALIC - Eye Exam Eye Exam: Normal appearance, PERRL Pupil Exam: NORMAL ACCOMODATION - ENT Exam ENT Exam: Mucous Membranes Dry Additional comments: ET tube - Neck Exam Neck exam: Positive for: Normal Inspection - Respiratory Exam Additional comments: On MV - Cardiovascular Exam Cardiovascular Exam: Tachycardia, +S1, +S2 - GI/Abdominal Exam GI & Abdominal Exam: Distended, Firm, Hypoactive Bowel Sounds - Rectal Exam Rectal Exam: Deferred - Exam Additional comments: Early cath - Extremities Exam Extremities exam: Positive for: calf tenderness, pedal edema, pedal pulses present - Back Exam Back exam: NORMAL INSPECTION - Neurological Exam Neurological exam: Alert, Altered - Psychiatric Exam Psychiatric exam: Flat Affect - Skin Skin Exam: Normal Color, Warm Results - Vital Signs Recent Vital Signs: Last Vital Signs Temp 97.4 F L 01/16/17 00:00 Pulse 83 01/16/17 12:07 Resp 21 01/16/17 12:07 BP 161/98 H 01/16/17 12:07 Pulse Ox 100 01/16/17 12:07 - Labs Result Diagrams: 01/16/17 06:30 01/16/17 06:30 Labs: Laboratory Results - last 24 hr 01/15/17 01/15/17 01/16/17 17:57 23:45 05:27 WBC RBC Hgb Hct MCV MCH MCHC RDW Plt Count MPV Neut % (Auto) Lymph % (Auto) [place] % (Auto) Eos % (Auto) Baso % (Auto) Neut # Lymph # [place] # Eos # Baso # Neutrophils % (Manual) Lymphocytes % (Manual) Reactive Lymphs % Monocytes % (Manual) Basophils % (Manual) Platelet Estimate Hypochromasia (manual) Poikilocytosis (manual Anisocytosis (manual) Puncture Site Rr pCO2 51 H pO2 86 HCO3 33.4 H ABG pH 7.46 H ABG Total CO2 37.9 H ABG O2 Saturation 98.1 H ABG Base Excess 10.9 H ABG Hemoglobin 11.1 L ABG Carboxyhemoglobin 2.1 H POC ABG HHb (Measured) 1.8 ABG Methemoglobin 1.2 Mono Test Pos A-a O2 Difference 135.0 Respiratory Index 1.6 Hgb O2 Saturation 95.0 Mechanical Rate 16 FiO2 40.0 Tidal Volume 500 PEEP 5 Sodium Potassium Chloride Carbon Dioxide Anion Gap BUN Creatinine Est GFR ( Amer) Est GFR (Non-Af Amer) POC Glucose (mg/dL) 130 H 149 H Random Glucose Calcium Phosphorus Magnesium Total Bilirubin AST ALT Alkaline Phosphatase Total Protein Albumin Globulin Albumin/Globulin Ratio Digoxin 01/16/17 01/16/17 01/16/17 05:48 06:30 11:19 WBC 11.2 H RBC 4.04 L Hgb 11.2 L Hct 35.9 MCV 89.0 MCH 27.8 MCHC 31.2 L RDW 14.3 Plt Count 194 MPV 10.5 Neut % (Auto) 78.5 H Lymph % (Auto) 7.7 L [place] % (Auto) 9.6 Eos % (Auto) 3.3 Baso % (Auto) 0.9 Neut # 8.8 H Lymph # 0.9 L [place] # 1.1 H Eos # 0.4 Baso # 0.1 Neutrophils % (Manual) 82 H Lymphocytes % (Manual) 8 L Reactive Lymphs % 1 H Monocytes % (Manual) 8 Basophils % (Manual) 1 Platelet Estimate Normal Hypochromasia (manual) Slight Poikilocytosis (manual Slight Anisocytosis (manual) Slight Puncture Site pCO2 pO2 HCO3 ABG pH ABG Total CO2 ABG O2 Saturation ABG Base Excess ABG Hemoglobin ABG Carboxyhemoglobin POC ABG HHb (Measured) ABG Methemoglobin Mono Test A-a O2 Difference Respiratory Index Hgb O2 Saturation Mechanical Rate FiO2 Tidal Volume PEEP Sodium 150 H Potassium 4.0 Chloride 109 H Carbon Dioxide 32 H Anion Gap 13 BUN 32 H Creatinine 1.0 Est GFR ( Amer) > 60 Est GFR (Non-Af Amer) > 60 POC Glucose (mg/dL) 162 H Random Glucose 143 H Calcium 9.1 Phosphorus 3.3 Magnesium 3.0 H Total Bilirubin 0.6 AST 23 ALT 27 Alkaline Phosphatase 81 Total Protein 6.7 Albumin 3.2 L Globulin 3.5 Albumin/Globulin Ratio 0.9 L Digoxin 0.9 01/16/17 11:56 WBC RBC Hgb Hct MCV MCH MCHC RDW Plt Count MPV Neut % (Auto) Lymph % (Auto) [place] % (Auto) Eos % (Auto) Baso % (Auto) Neut # Lymph # [place] # Eos # Baso # Neutrophils % (Manual) Lymphocytes % (Manual) Reactive Lymphs % Monocytes % (Manual) Basophils % (Manual) Platelet Estimate Hypochromasia (manual) Poikilocytosis (manual Anisocytosis (manual) Puncture Site pCO2 pO2 HCO3 ABG pH ABG Total CO2 ABG O2 Saturation ABG Base Excess ABG Hemoglobin ABG Carboxyhemoglobin POC ABG HHb (Measured) ABG Methemoglobin Mono Test A-a O2 Difference Respiratory Index Hgb O2 Saturation Mechanical Rate FiO2 Tidal Volume PEEP Sodium Potassium Chloride Carbon Dioxide Anion Gap BUN Creatinine Est GFR ( Amer) Est GFR (Non-Af Amer) POC Glucose (mg/dL) 136 H Random Glucose Calcium Phosphorus Magnesium Total Bilirubin AST ALT Alkaline Phosphatase Total Protein Albumin Globulin Albumin/Globulin Ratio Digoxin Assessment & Plan - Assessment and Plan (Free Text) Assessment: Palliative consult Code status Full Code, no Advance directive on chart. PPS 10%. ROS unobtained due to condition. I reviewed medical records, all diagnostic studies, examined patient in the bed and discussed his condition with ICU staff. ROS obtained from nursing and charts. Patient is intubated,on MV support, alert, looking more alert today than yesterday. Patient makes eye contacts. Patient does not fallow commends. Multiple family members were at bed side this morning. Doctor Corey Duffy spoke to them in their [place] language. As per Doctor Corey Duffy family is looking forward weaning from the MV and return to basic or close to level of functioning. CXR from this morning showed moderate to severe pulmonary venous congestion. Thoracentesis was planed but chest US showed no enough fluid to be drained. Abdomen is largely and hardly distended, right hand is swollen . Na on admission was elevated at 147, and 150 today, most likely contributing to edema.Alb low at 3.2, Mg high 3.0. Early cath is in place, urine output WNL. BP 161/98, HR 83, RR 21. Impression * Patient is still dependent of MV * Patient is less lethargic than yesterday, makes eye contact * There is a modest electrolyte imbalance * Right hand edema * Abdominal distention * Wishes for the end of life care are not known * Family advocates and is expecting meaningful recovery for this patient Suggestion * Correct electrolyte imbalance * Elevate right hand on pillow * Weaning trials as tolerated ICU team plans on weaning trial today. Palliative care will continue to fallow up this patient. Goals of care will be readjusted based on patient's progress. Thank you very much for consulting Palliative Care
--- NOTE | 2017-01-16 15:40 | CP.CCUPN ---
<Damaso Ng - Last Filed: 01/16/17 15:36> CCU Subjective - Physician Review Subjective (Free Text): 01/16/17 15:36 Pt seen and examined at bedside. Nursing reports episodes of hypertension overnight. Pt started on Lopressor and Cozaar by overnight health care coach. The Precedex was increased overnight as well. Pt was bradycardic on exam this AM, so holding parameters were added to Cozaar/Lopressor. No change in pt clinical status. Will continue weaning from ventilation today. Thoracentesis was not performed yesterday, as there was not enough fluid for drainage. Palliative consult appreciated. Pt full code per family wishes. Critical Care Time Spent (in minutes): 40 CCU Objective - Vital Signs / Intake & Output Vital Signs (Last 4 hours): Vital Signs Temp Pulse Resp BP Pulse Ox 01/16/17 13:06 80 26 H 161/96 H 100 01/16/17 13:00 78 24 100 01/16/17 12:31 76 14 100 01/16/17 12:07 83 21 161/98 H 100 01/16/17 12:00 99 F 76 26 H 100 Intake and Output (Last 8hrs): Intake & Output 01/16/17 01/16/17 01/16/17 06:59 14:59 22:59 Intake Total 544.6 331.95 Output Total 350 375 Balance 194.6 -43.05 Weight 198 lb Intake: Intake, IV Amount 224.6 51.95 Left Forearm 174.6 51.95 left hand 50 Tube Feeding 320 280 Output: Urine 350 375 Urethral (Sanchez) 350 375 Other: # Bowel Movements 1 - Physical Exam Head: Positive for: Atraumatic, Normocephalic Extroacular Muscles: Positive for: EOMI Conjunctiva: Positive for: Injected Mouth: Positive for: Dry Respiratory/Chest: Positive for: Decreased Breath Sounds (especially on right side base), Other (Pt ventilated and sedated). Negative for: Accessory Muscle Use Cardiovascular: Positive for: Normal S1, S2, Irregular Rhythm Abdomen: Positive for: Normal Bowel Sounds Genitourinary Male: Positive for: Other (sanchez catheter in place) Upper Extremity: Positive for: Edema (rt hand swollen), Other (Right hand swollen due to infiltrated IV) Lower Extremity: Positive for: Edema (1+ pitting edema), NORMAL PULSES Neurological: Positive for: Other. Negative for: CN II-XII Intact (Pt sedated) , Speech Normal Skin: Positive for: Warm, Dry Psychiatric: Negative for: Alert, Oriented x 3 - Medications Active Medications: Active Medications Generic Name Dose Route Start Last Admin Trade Name Freq PRN Reason Stop Dose Admin Acetaminophen 650 mg 01/10/17 23:50 01/12/17 16:20 Tylenol 650mg/20.3ml Solution Ud PO 650 mg Q6 PRN Administration Fever >100.4 F Albuterol/Ipratropium 3 ml 01/12/17 14:00 01/16/17 13:40 Duoneb 3 Mg/0.5 Mg (3 Ml) Ud INH 3 ml RQ6 HERMILO Administration Aspirin 81 mg 01/12/17 10:00 01/16/17 11:08 Aspirin Chewable PO 81 mg DAILY HERMILO Administration Digoxin 0.1 mg 01/11/17 18:00 01/15/17 16:59 Lanoxin IVP 0.1 mg DAILY@1800 HERMILO Administration Dexmedetomidine HCl 200 mcg/ 50 mls @ 4.71 mls/hr 01/13/17 10:16 01/16/17 09:00 Sodium Chloride IVPB 14.15 mls/hr TITR PRN Administration Sedation Protocol 0.2 MCG/KG/HR Azithromycin 500 mg/ Sodium 250 mls @ 250 mls/hr 01/14/17 11:15 01/16/17 11:08 Chloride IVPB 250 mls/hr DAILY@1100 HERMILO Administration Insulin Human Regular 0 unit 01/09/17 18:00 01/16/17 14:19 Novolin R SC Not Given Q6H [facility] Protocol Losartan Potassium 50 mg 01/16/17 10:33 Cozaar PO DAILY HERMILO Metoprolol Tartrate 25 mg 01/16/17 10:30 Lopressor PO BID HERMILO Pantoprazole Sodium 40 mg 01/09/17 12:15 01/16/17 11:08 Protonix Inj IVP 40 mg DAILY HERMILO Administration Rosuvastatin Calcium 10 mg 01/10/17 22:00 01/15/17 20:55 Crestor PO 10 mg HS HERMILO Administration - Patient Studies Lab Studies: Microbiology Studies 01/10/17 12:30 Blood Culture - Final Blood NO GROWTH AFTER 5 DAYS Gram Stain - Final 01/10/17 12:00 Blood Culture - Final Blood NO GROWTH AFTER 5 DAYS Gram Stain - Final TEST NOT PERFORMED Lab Studies 01/16/17 01/16/17 01/16/17 Range/Units 11:56 11:19 06:30 WBC 11.2 H (4.8-10.8) K/uL RBC 4.04 L (4.40-5.90) Mil/uL Hgb 11.2 L (12.0-18.0) g/dL Hct 35.9 (35.0-51.0) % MCV 89.0 (80.0-94.0) fL MCH 27.8 (27.0-31.0) pg MCHC 31.2 L (33.0-37.0) g/dL RDW 14.3 (11.5-14.5) % Plt Count 194 (130-400) K/uL MPV 10.5 (7.2-11.7) fL Neut % (Auto) 78.5 H (50.0-75.0) % Lymph % (Auto) 7.7 L (20.0-40.0) % Knox % (Auto) 9.6 (0.0-10.0) % Eos % (Auto) 3.3 (0.0-4.0) % Baso % (Auto) 0.9 (0.0-2.0) % Neut # 8.8 H (1.8-7.0) K/uL Lymph # 0.9 L (1.0-4.3) K/uL Knox # 1.1 H (0.0-0.8) K/uL Eos # 0.4 (0.0-0.7) K/uL Baso # 0.1 (0.0-0.2) K/uL Neutrophils % (Manual) 82 H (50-75) % Lymphocytes % (Manual) 8 L (20-40) % Reactive Lymphs % 1 H (0-0) % Monocytes % (Manual) 8 (0-10) % Basophils % (Manual) 1 (0-2) % Platelet Estimate Normal (NORMAL) Hypochromasia (manual) Slight Poikilocytosis (manual Slight Anisocytosis (manual) Slight Puncture Site pCO2 (35-45) mm/Hg pO2 (80-100) mm/Hg HCO3 (21-28) mmol/L ABG pH (7.35-7.45) ABG Total CO2 (22-28) mmol/L ABG O2 Saturation (95-98) % ABG Base Excess (-2.0-3.0) mmol/L ABG Hemoglobin (11.7-17.4) g/dL ABG Carboxyhemoglobin (0.5-1.5) % POC ABG HHb (Measured) (0.0-5.0) % ABG Methemoglobin (0.0-3.0) % Mono Test A-a O2 Difference mm/Hg Respiratory Index Hgb O2 Saturation (95.0-98.0) % Mechanical Rate FiO2 % Tidal Volume PEEP Sodium 150 H (132-148) mmol/L Potassium 4.0 (3.6-5.2) mmol/L Chloride 109 H (98-107) mmol/L Carbon Dioxide 32 H (22-30) mmol/L Anion Gap 13 (10-20) BUN 32 H (9-20) mg/dL Creatinine 1.0 (0.8-1.5) MG/DL Est GFR ( Amer) > 60 Est GFR (Non-Af Amer) > 60 POC Glucose (mg/dL) 136 H (65-110) mg/dL Random Glucose 143 H (75-110) mg/dL Calcium 9.1 (8.6-10.4) mg/dl Phosphorus 3.3 (2.5-4.5) mg/dL Magnesium 3.0 H (1.6-2.3) mg/dL Total Bilirubin 0.6 (0.2-1.3) mg/dL AST 23 (17-59) U/L ALT 27 (21-72) U/L Alkaline Phosphatase 81 (38-126) U/L Total Protein 6.7 (6.3-8.3) g/dL Albumin 3.2 L (3.5-5.0) g/dL Globulin 3.5 (2.2-3.9) gm/dL Albumin/Globulin Ratio 0.9 L (1.0-2.1) Digoxin 0.9 (0.8-2.0) ng/mL 01/16/17 01/16/17 01/15/17 Range/Units 05:48 05:27 23:45 WBC (4.8-10.8) K/uL RBC (4.40-5.90) Mil/uL Hgb (12.0-18.0) g/dL Hct (35.0-51.0) % MCV (80.0-94.0) fL MCH (27.0-31.0) pg MCHC (33.0-37.0) g/dL RDW (11.5-14.5) % Plt Count (130-400) K/uL MPV (7.2-11.7) fL Neut % (Auto) (50.0-75.0) % Lymph % (Auto) (20.0-40.0) % Knox % (Auto) (0.0-10.0) % Eos % (Auto) (0.0-4.0) % Baso % (Auto) (0.0-2.0) % Neut # (1.8-7.0) K/uL Lymph # (1.0-4.3) K/uL Knox # (0.0-0.8) K/uL Eos # (0.0-0.7) K/uL Baso # (0.0-0.2) K/uL Neutrophils % (Manual) (50-75) % Lymphocytes % (Manual) (20-40) % Reactive Lymphs % (0-0) % Monocytes % (Manual) (0-10) % Basophils % (Manual) (0-2) % Platelet Estimate (NORMAL) Hypochromasia (manual) Poikilocytosis (manual Anisocytosis (manual) Puncture Site Rr pCO2 51 H (35-45) mm/Hg pO2 86 (80-100) mm/Hg HCO3 33.4 H (21-28) mmol/L ABG pH 7.46 H (7.35-7.45) ABG Total CO2 37.9 H (22-28) mmol/L ABG O2 Saturation 98.1 H (95-98) % ABG Base Excess 10.9 H (-2.0-3.0) mmol/L ABG Hemoglobin 11.1 L (11.7-17.4) g/dL ABG Carboxyhemoglobin 2.1 H (0.5-1.5) % POC ABG HHb (Measured) 1.8 (0.0-5.0) % ABG Methemoglobin 1.2 (0.0-3.0) % Mono Test Pos A-a O2 Difference 135.0 mm/Hg Respiratory Index 1.6 Hgb O2 Saturation 95.0 (95.0-98.0) % Mechanical Rate 16 FiO2 40.0 % Tidal Volume 500 PEEP 5 Sodium (132-148) mmol/L Potassium (3.6-5.2) mmol/L Chloride (98-107) mmol/L Carbon Dioxide (22-30) mmol/L Anion Gap (10-20) BUN (9-20) mg/dL Creatinine (0.8-1.5) MG/DL Est GFR ( Amer) Est GFR (Non-Af Amer) POC Glucose (mg/dL) 162 H 149 H (65-110) mg/dL Random Glucose (75-110) mg/dL Calcium (8.6-10.4) mg/dl Phosphorus (2.5-4.5) mg/dL Magnesium (1.6-2.3) mg/dL Total Bilirubin (0.2-1.3) mg/dL AST (17-59) U/L ALT (21-72) U/L Alkaline Phosphatase (38-126) U/L Total Protein (6.3-8.3) g/dL Albumin (3.5-5.0) g/dL Globulin (2.2-3.9) gm/dL Albumin/Globulin Ratio (1.0-2.1) Digoxin (0.8-2.0) ng/mL 01/15/17 Range/Units 17:57 WBC (4.8-10.8) K/uL RBC (4.40-5.90) Mil/uL Hgb (12.0-18.0) g/dL Hct (35.0-51.0) % MCV (80.0-94.0) fL MCH (27.0-31.0) pg MCHC (33.0-37.0) g/dL RDW (11.5-14.5) % Plt Count (130-400) K/uL MPV (7.2-11.7) fL Neut % (Auto) (50.0-75.0) % Lymph % (Auto) (20.0-40.0) % Knox % (Auto) (0.0-10.0) % Eos % (Auto) (0.0-4.0) % Baso % (Auto) (0.0-2.0) % Neut # (1.8-7.0) K/uL Lymph # (1.0-4.3) K/uL Knox # (0.0-0.8) K/uL Eos # (0.0-0.7) K/uL Baso # (0.0-0.2) K/uL Neutrophils % (Manual) (50-75) % Lymphocytes % (Manual) (20-40) % Reactive Lymphs % (0-0) % Monocytes % (Manual) (0-10) % Basophils % (Manual) (0-2) % Platelet Estimate (NORMAL) Hypochromasia (manual) Poikilocytosis (manual Anisocytosis (manual) Puncture Site pCO2 (35-45) mm/Hg pO2 (80-100) mm/Hg HCO3 (21-28) mmol/L ABG pH (7.35-7.45) ABG Total CO2 (22-28) mmol/L ABG O2 Saturation (95-98) % ABG Base Excess (-2.0-3.0) mmol/L ABG Hemoglobin (11.7-17.4) g/dL ABG Carboxyhemoglobin (0.5-1.5) % POC ABG HHb (Measured) (0.0-5.0) % ABG Methemoglobin (0.0-3.0) % Mono Test A-a O2 Difference mm/Hg Respiratory Index Hgb O2 Saturation (95.0-98.0) % Mechanical Rate FiO2 % Tidal Volume PEEP Sodium (132-148) mmol/L Potassium (3.6-5.2) mmol/L Chloride (98-107) mmol/L Carbon Dioxide (22-30) mmol/L Anion Gap (10-20) BUN (9-20) mg/dL Creatinine (0.8-1.5) MG/DL Est GFR ( Amer) Est GFR (Non-Af Amer) POC Glucose (mg/dL) 130 H (65-110) mg/dL Random Glucose (75-110) mg/dL Calcium (8.6-10.4) mg/dl Phosphorus (2.5-4.5) mg/dL Magnesium (1.6-2.3) mg/dL Total Bilirubin (0.2-1.3) mg/dL AST (17-59) U/L ALT (21-72) U/L Alkaline Phosphatase (38-126) U/L Total Protein (6.3-8.3) g/dL Albumin (3.5-5.0) g/dL Globulin (2.2-3.9) gm/dL Albumin/Globulin Ratio (1.0-2.1) Digoxin (0.8-2.0) ng/mL Laboratory Results - last 24 hr 01/15/17 01/15/17 01/16/17 17:57 23:45 05:27 WBC RBC Hgb Hct MCV MCH MCHC RDW Plt Count MPV Neut % (Auto) Lymph % (Auto) Knox % (Auto) Eos % (Auto) Baso % (Auto) Neut # Lymph # Knox # Eos # Baso # Neutrophils % (Manual) Lymphocytes % (Manual) Reactive Lymphs % Monocytes % (Manual) Basophils % (Manual) Platelet Estimate Hypochromasia (manual) Poikilocytosis (manual Anisocytosis (manual) Puncture Site Rr pCO2 51 H pO2 86 HCO3 33.4 H ABG pH 7.46 H ABG Total CO2 37.9 H ABG O2 Saturation 98.1 H ABG Base Excess 10.9 H ABG Hemoglobin 11.1 L ABG Carboxyhemoglobin 2.1 H POC ABG HHb (Measured) 1.8 ABG Methemoglobin 1.2 Mono Test Pos A-a O2 Difference 135.0 Respiratory Index 1.6 Hgb O2 Saturation 95.0 Mechanical Rate 16 FiO2 40.0 Tidal Volume 500 PEEP 5 Sodium Potassium Chloride Carbon Dioxide Anion Gap BUN Creatinine Est GFR ( Amer) Est GFR (Non-Af Amer) POC Glucose (mg/dL) 130 H 149 H Random Glucose Calcium Phosphorus Magnesium Total Bilirubin AST ALT Alkaline Phosphatase Total Protein Albumin Globulin Albumin/Globulin Ratio Digoxin 01/16/17 01/16/17 01/16/17 05:48 06:30 11:19 WBC 11.2 H RBC 4.04 L Hgb 11.2 L Hct 35.9 MCV 89.0 MCH 27.8 MCHC 31.2 L RDW 14.3 Plt Count 194 MPV 10.5 Neut % (Auto) 78.5 H Lymph % (Auto) 7.7 L Knox % (Auto) 9.6 Eos % (Auto) 3.3 Baso % (Auto) 0.9 Neut # 8.8 H Lymph # 0.9 L Knox # 1.1 H Eos # 0.4 Baso # 0.1 Neutrophils % (Manual) 82 H Lymphocytes % (Manual) 8 L Reactive Lymphs % 1 H Monocytes % (Manual) 8 Basophils % (Manual) 1 Platelet Estimate Normal Hypochromasia (manual) Slight Poikilocytosis (manual Slight Anisocytosis (manual) Slight Puncture Site pCO2 pO2 HCO3 ABG pH ABG Total CO2 ABG O2 Saturation ABG Base Excess ABG Hemoglobin ABG Carboxyhemoglobin POC ABG HHb (Measured) ABG Methemoglobin Mono Test A-a O2 Difference Respiratory Index Hgb O2 Saturation Mechanical Rate FiO2 Tidal Volume PEEP Sodium 150 H Potassium 4.0 Chloride 109 H Carbon Dioxide 32 H Anion Gap 13 BUN 32 H Creatinine 1.0 Est GFR ( Amer) > 60 Est GFR (Non-Af Amer) > 60 POC Glucose (mg/dL) 162 H Random Glucose 143 H Calcium 9.1 Phosphorus 3.3 Magnesium 3.0 H Total Bilirubin 0.6 AST 23 ALT 27 Alkaline Phosphatase 81 Total Protein 6.7 Albumin 3.2 L Globulin 3.5 Albumin/Globulin Ratio 0.9 L Digoxin 0.9 01/16/17 11:56 WBC RBC Hgb Hct MCV MCH MCHC RDW Plt Count MPV Neut % (Auto) Lymph % (Auto) Knox % (Auto) Eos % (Auto) Baso % (Auto) Neut # Lymph # Knox # Eos # Baso # Neutrophils % (Manual) Lymphocytes % (Manual) Reactive Lymphs % Monocytes % (Manual) Basophils % (Manual) Platelet Estimate Hypochromasia (manual) Poikilocytosis (manual Anisocytosis (manual) Puncture Site pCO2 pO2 HCO3 ABG pH ABG Total CO2 ABG O2 Saturation ABG Base Excess ABG Hemoglobin ABG Carboxyhemoglobin POC ABG HHb (Measured) ABG Methemoglobin Mono Test A-a O2 Difference Respiratory Index Hgb O2 Saturation Mechanical Rate FiO2 Tidal Volume PEEP Sodium Potassium Chloride Carbon Dioxide Anion Gap BUN Creatinine Est GFR ( Amer) Est GFR (Non-Af Amer) POC Glucose (mg/dL) 136 H Random Glucose Calcium Phosphorus Magnesium Total Bilirubin AST ALT Alkaline Phosphatase Total Protein Albumin Globulin Albumin/Globulin Ratio Digoxin Fingerstick Blood Sugar Results: 162 Review of Systems - Review of Systems Systems not reviewed;Unavailable: Altered Mental Status Assessment/Plan - Assessment and Plan (Free Text) Assessment: 76 year old male of descent, with PMHx of afib (on xarelto), presenting with new onset weakness and respiratory distress. Pt intubated and sedated. CT scan shows left basal intraparenchymal bleed. Pleural effusion on right, but not enough fluid to attempt thoracentesis. Plan: Neuro: Pt intubated, daily sedation vacation. - Precedex drip decreased CT Head (01/09/17): Left intraparenchymal hemorrhage without midline shift (see full report) - repeat CT (01/09/17): stable hemorrhage (see full report) - repeat 24hr CT (01/10/17): no new hemorrhage. Redemonstrated large left BG hemorrhage surrounded by edema and/or necrotic brain tissue. Mild mass effect. ( see full report). Decreased movement of right side; minimal movement of RUE Dr Segura, Neurology, consulted: help appreciated - [facility] treatment completed - head of bed to 30 degrees - Stable CT head: ASA 325mg PO Daily Dr. Palmer, Neurosurgery, consulted: help appreciated - No intervention at this time Elevated temp (100.3) on 01/10 - Sputum Cx (01/10/17): Normal amando - Urine Cx (01/10/17): Enterococcus Faecalis - Blood cx (01/10/17): No growth for 5 days x 2 - MRSA (01/09/17): Not detected Endo: Hgb A1c: 6.5 Accuchecks ACHS ISS - low CV: Hx of atrial fibrillation - EKG on presentation: Afib w. RVR (rate 108). Left axis deviation. - Hold Home med Xarelto 20mg Daily - Digoxin level (01/10/17): < 0.4; Random level (01/16/17) 0.9 - Loaded, then restarted home Digoxin 0.1mg IVP CAD - Crestor 10mg PO HS - ASA 81mg PO Daily HTN Increased pressure overnight, started following meds with holding parameters: - Cozaar 50mg PO Daily - Lopressor 25mg PO BID Pulm: Pt on CPAP trial, attempted weaning from MV Pleural effusions: CXR (01/16/17) ETT and NGT in correct position. Moderate to severe pulmonary venous congestion. Probable small b/l pleural effusions. Enlargement of the cardiomediastinal silhouette, similar to prior study. (see full report) CT Chest/Abd/Pelvis (01/14/17): Cardiomegaly. Right greater than left small bilateral pleural effusions with consolidation. Scattered emphysematous changes. Pulmonary venous congestion. Gallbladder wall thickening, pericholecystic edema. Absent Right kidney. Bilateral adrenal gland hypertrophy. Tiny fat containing umbilical hernia. (see full report) - Cefepime 1gm IV Q8H (Day 6) - Azithromycin 500mg IV Daily (Day 3) Thoracentesis cancelled, not enough fluid for attempt Duonebs Q6H HERMILO GI: Started tubefeeding: diabetisource - At Goal: 45 ml/hr CT Chest/Abd/Pelvis (01/14/17): Cardiomegaly. Right greater than left small bilateral pleural effusions with consolidation. Scattered emphysematous changes. Pulmonary venous congestion. Gallbladder wall thickening, pericholecystic edema. Absent Right kidney. Bilateral adrenal gland hypertrophy. Tiny fat containing umbilical hernia. (see full report) LFTs WNL : BUN/Cr WNL Hypernatremia - 150 on AM labs Sanchez catheter in place Monitor I/Os ID: Leukocytosis: 11.2, slightly elevated but downtrending - left shift, with no bands - continue Cefepime 1gm Q8H (day 6) for possible VAP Urine Cx (01/10/17): Enterococcus Faecalis - continue Azithromycin 500mg IV Daily (Day 3) Hem/Onc: On home Xarelto - Kcentra completed for stabilization of ICH. - can restart Xarelto or alternative manager long term care stroke prophylaxis at least 6 weeks from bleed stabilization Mskltl: PT/OT eval Prophylaxis: DVT: SCDs VTE: contraindicated due to active BG bleed GI: Protonix IV <Juan Ambrose - Last Filed: 01/16/17 18:04> CCU Objective - Vital Signs / Intake & Output Vital Signs (Last 4 hours): Vital Signs Pulse Resp BP Pulse Ox 01/16/17 17:06 113 H 28 H 185/102 H 96 01/16/17 17:00 104 H 26 H 97 01/16/17 16:06 104 H 25 H 179/108 H 97 01/16/17 16:00 107 H 28 H 97 01/16/17 15:06 105 H 24 166/98 H 97 01/16/17 15:00 102 H 26 H 98 01/16/17 14:06 101 H 31 H 174/114 H 100 Intake and Output (Last 8hrs): Intake & Output 01/16/17 01/16/17 01/16/17 06:59 14:59 22:59 Intake Total 544.6 371.95 120 Output Total 350 435 205 Balance 194.6 -63.05 -85 Weight 198 lb Intake: Intake, IV Amount 224.6 51.95 Left Forearm 174.6 51.95 left hand 50 Tube Feeding 320 320 120 Output: Urine 350 435 205 Urethral (Sanchez) 350 435 205 Other: # Bowel Movements 1 - Medications Active Medications: Active Medications Generic Name Dose Route Start Last Admin Trade Name Freq PRN Reason Stop Dose Admin Acetaminophen 650 mg 01/10/17 23:50 01/12/17 16:20 Tylenol 650mg/20.3ml Solution Ud PO 650 mg Q6 PRN Administration Fever >100.4 F Albuterol/Ipratropium 3 ml 01/12/17 14:00 01/16/17 13:40 Duoneb 3 Mg/0.5 Mg (3 Ml) Ud INH 3 ml RQ6 HERMILO Administration Aspirin 81 mg 01/12/17 10:00 01/16/17 11:08 Aspirin Chewable PO 81 mg DAILY HERMILO Administration Digoxin 0.1 mg 01/11/17 18:00 01/15/17 16:59 Lanoxin IVP 0.1 mg DAILY@1800 HERMILO Administration Dexmedetomidine HCl 200 mcg/ 50 mls @ 4.71 mls/hr 01/13/17 10:16 01/16/17 09:00 Sodium Chloride IVPB 14.15 mls/hr TITR PRN Administration Sedation Protocol 0.2 MCG/KG/HR Azithromycin 500 mg/ Sodium 250 mls @ 250 mls/hr 01/14/17 11:15 01/16/17 11:08 Chloride IVPB 250 mls/hr DAILY@1100 HERMILO Administration Cefepime HCl 50 mls @ 100 mls/hr 01/16/17 17:00 Maxipime Iv 1 Gm Premix IVPB Q8H [facility] Insulin Human Regular 0 unit 01/09/17 18:00 01/16/17 14:19 Novolin R SC Not Given Q6H [facility] Protocol Losartan Potassium 50 mg 01/16/17 10:33 Cozaar PO DAILY [facility] Metoprolol Tartrate 25 mg 01/16/17 10:30 Lopressor PO BID HERMILO Pantoprazole Sodium 40 mg 01/09/17 12:15 01/16/17 11:08 Protonix Inj IVP 40 mg DAILY HERMILO Administration Rosuvastatin Calcium 10 mg 01/10/17 22:00 01/15/17 20:55 Crestor PO 10 mg HS HERMILO Administration - Patient Studies Lab Studies: Microbiology Studies 01/10/17 12:30 Blood Culture - Final Blood NO GROWTH AFTER 5 DAYS Gram Stain - Final 01/10/17 12:00 Blood Culture - Final Blood NO GROWTH AFTER 5 DAYS Gram Stain - Final TEST NOT PERFORMED Lab Studies 01/16/17 01/16/17 01/16/17 Range/Units 17:52 11:56 11:19 WBC (4.8-10.8) K/uL RBC (4.40-5.90) Mil/uL Hgb (12.0-18.0) g/dL Hct (35.0-51.0) % MCV (80.0-94.0) fL MCH (27.0-31.0) pg MCHC (33.0-37.0) g/dL RDW (11.5-14.5) % Plt Count (130-400) K/uL MPV (7.2-11.7) fL Neut % (Auto) (50.0-75.0) % Lymph % (Auto) (20.0-40.0) % Knox % (Auto) (0.0-10.0) % Eos % (Auto) (0.0-4.0) % Baso % (Auto) (0.0-2.0) % Neut # (1.8-7.0) K/uL Lymph # (1.0-4.3) K/uL Knox # (0.0-0.8) K/uL Eos # (0.0-0.7) K/uL Baso # (0.0-0.2) K/uL Neutrophils % (Manual) (50-75) % Lymphocytes % (Manual) (20-40) % Reactive Lymphs % (0-0) % Monocytes % (Manual) (0-10) % Basophils % (Manual) (0-2) % Platelet Estimate (NORMAL) Hypochromasia (manual) Poikilocytosis (manual Anisocytosis (manual) Puncture Site pCO2 (35-45) mm/Hg pO2 (80-100) mm/Hg HCO3 (21-28) mmol/L ABG pH (7.35-7.45) ABG Total CO2 (22-28) mmol/L ABG O2 Saturation (95-98) % ABG Base Excess (-2.0-3.0) mmol/L ABG Hemoglobin (11.7-17.4) g/dL ABG Carboxyhemoglobin (0.5-1.5) % POC ABG HHb (Measured) (0.0-5.0) % ABG Methemoglobin (0.0-3.0) % Mono Test A-a O2 Difference mm/Hg Respiratory Index Hgb O2 Saturation (95.0-98.0) % Mechanical Rate FiO2 % Tidal Volume PEEP Sodium (132-148) mmol/L Potassium (3.6-5.2) mmol/L Chloride (98-107) mmol/L Carbon Dioxide (22-30) mmol/L Anion Gap (10-20) BUN (9-20) mg/dL Creatinine (0.8-1.5) MG/DL Est GFR ( Amer) Est GFR (Non-Af Amer) POC Glucose (mg/dL) 120 H 136 H (65-110) mg/dL Random Glucose (75-110) mg/dL Calcium (8.6-10.4) mg/dl Phosphorus (2.5-4.5) mg/dL Magnesium (1.6-2.3) mg/dL Total Bilirubin (0.2-1.3) mg/dL AST (17-59) U/L ALT (21-72) U/L Alkaline Phosphatase (38-126) U/L Total Protein (6.3-8.3) g/dL Albumin (3.5-5.0) g/dL Globulin (2.2-3.9) gm/dL Albumin/Globulin Ratio (1.0-2.1) Digoxin 0.9 (0.8-2.0) ng/mL 01/16/17 01/16/17 01/16/17 Range/Units 06:30 05:48 05:27 WBC 11.2 H (4.8-10.8) K/uL RBC 4.04 L (4.40-5.90) Mil/uL Hgb 11.2 L (12.0-18.0) g/dL Hct 35.9 (35.0-51.0) % MCV 89.0 (80.0-94.0) fL MCH 27.8 (27.0-31.0) pg MCHC 31.2 L (33.0-37.0) g/dL RDW 14.3 (11.5-14.5) % Plt Count 194 (130-400) K/uL MPV 10.5 (7.2-11.7) fL Neut % (Auto) 78.5 H (50.0-75.0) % Lymph % (Auto) 7.7 L (20.0-40.0) % Knox % (Auto) 9.6 (0.0-10.0) % Eos % (Auto) 3.3 (0.0-4.0) % Baso % (Auto) 0.9 (0.0-2.0) % Neut # 8.8 H (1.8-7.0) K/uL Lymph # 0.9 L (1.0-4.3) K/uL Knox # 1.1 H (0.0-0.8) K/uL Eos # 0.4 (0.0-0.7) K/uL Baso # 0.1 (0.0-0.2) K/uL Neutrophils % (Manual) 82 H (50-75) % Lymphocytes % (Manual) 8 L (20-40) % Reactive Lymphs % 1 H (0-0) % Monocytes % (Manual) 8 (0-10) % Basophils % (Manual) 1 (0-2) % Platelet Estimate Normal (NORMAL) Hypochromasia (manual) Slight Poikilocytosis (manual Slight Anisocytosis (manual) Slight Puncture Site Rr pCO2 51 H (35-45) mm/Hg pO2 86 (80-100) mm/Hg HCO3 33.4 H (21-28) mmol/L ABG pH 7.46 H (7.35-7.45) ABG Total CO2 37.9 H (22-28) mmol/L ABG O2 Saturation 98.1 H (95-98) % ABG Base Excess 10.9 H (-2.0-3.0) mmol/L ABG Hemoglobin 11.1 L (11.7-17.4) g/dL ABG Carboxyhemoglobin 2.1 H (0.5-1.5) % POC ABG HHb (Measured) 1.8 (0.0-5.0) % ABG Methemoglobin 1.2 (0.0-3.0) % Mono Test Pos A-a O2 Difference 135.0 mm/Hg Respiratory Index 1.6 Hgb O2 Saturation 95.0 (95.0-98.0) % Mechanical Rate 16 FiO2 40.0 % Tidal Volume 500 PEEP 5 Sodium 150 H (132-148) mmol/L Potassium 4.0 (3.6-5.2) mmol/L Chloride 109 H (98-107) mmol/L Carbon Dioxide 32 H (22-30) mmol/L Anion Gap 13 (10-20) BUN 32 H (9-20) mg/dL Creatinine 1.0 (0.8-1.5) MG/DL Est GFR ( Amer) > 60 Est GFR (Non-Af Amer) > 60 POC Glucose (mg/dL) 162 H (65-110) mg/dL Random Glucose 143 H (75-110) mg/dL Calcium 9.1 (8.6-10.4) mg/dl Phosphorus 3.3 (2.5-4.5) mg/dL Magnesium 3.0 H (1.6-2.3) mg/dL Total Bilirubin 0.6 (0.2-1.3) mg/dL AST 23 (17-59) U/L ALT 27 (21-72) U/L Alkaline Phosphatase 81 (38-126) U/L Total Protein 6.7 (6.3-8.3) g/dL Albumin 3.2 L (3.5-5.0) g/dL Globulin 3.5 (2.2-3.9) gm/dL Albumin/Globulin Ratio 0.9 L (1.0-2.1) Digoxin (0.8-2.0) ng/mL 01/15/17 Range/Units 23:45 WBC (4.8-10.8) K/uL RBC (4.40-5.90) Mil/uL Hgb (12.0-18.0) g/dL Hct (35.0-51.0) % MCV (80.0-94.0) fL MCH (27.0-31.0) pg MCHC (33.0-37.0) g/dL RDW (11.5-14.5) % Plt Count (130-400) K/uL MPV (7.2-11.7) fL Neut % (Auto) (50.0-75.0) % Lymph % (Auto) (20.0-40.0) % Knox % (Auto) (0.0-10.0) % Eos % (Auto) (0.0-4.0) % Baso % (Auto) (0.0-2.0) % Neut # (1.8-7.0) K/uL Lymph # (1.0-4.3) K/uL Knox # (0.0-0.8) K/uL Eos # (0.0-0.7) K/uL Baso # (0.0-0.2) K/uL Neutrophils % (Manual) (50-75) % Lymphocytes % (Manual) (20-40) % Reactive Lymphs % (0-0) % Monocytes % (Manual) (0-10) % Basophils % (Manual) (0-2) % Platelet Estimate (NORMAL) Hypochromasia (manual) Poikilocytosis (manual Anisocytosis (manual) Puncture Site pCO2 (35-45) mm/Hg pO2 (80-100) mm/Hg HCO3 (21-28) mmol/L ABG pH (7.35-7.45) ABG Total CO2 (22-28) mmol/L ABG O2 Saturation (95-98) % ABG Base Excess (-2.0-3.0) mmol/L ABG Hemoglobin (11.7-17.4) g/dL ABG Carboxyhemoglobin (0.5-1.5) % POC ABG HHb (Measured) (0.0-5.0) % ABG Methemoglobin (0.0-3.0) % Mono Test A-a O2 Difference mm/Hg Respiratory Index Hgb O2 Saturation (95.0-98.0) % Mechanical Rate FiO2 % Tidal Volume PEEP Sodium (132-148) mmol/L Potassium (3.6-5.2) mmol/L Chloride (98-107) mmol/L Carbon Dioxide (22-30) mmol/L Anion Gap (10-20) BUN (9-20) mg/dL Creatinine (0.8-1.5) MG/DL Est GFR ( Amer) Est GFR (Non-Af Amer) POC Glucose (mg/dL) 149 H (65-110) mg/dL Random Glucose (75-110) mg/dL Calcium (8.6-10.4) mg/dl Phosphorus (2.5-4.5) mg/dL Magnesium (1.6-2.3) mg/dL Total Bilirubin (0.2-1.3) mg/dL AST (17-59) U/L ALT (21-72) U/L Alkaline Phosphatase (38-126) U/L Total Protein (6.3-8.3) g/dL Albumin (3.5-5.0) g/dL Globulin (2.2-3.9) gm/dL Albumin/Globulin Ratio (1.0-2.1) Digoxin (0.8-2.0) ng/mL Laboratory Results - last 24 hr 01/15/17 01/16/17 01/16/17 23:45 05:27 05:48 WBC RBC Hgb Hct MCV MCH MCHC RDW Plt Count MPV Neut % (Auto) Lymph % (Auto) Knox % (Auto) Eos % (Auto) Baso % (Auto) Neut # Lymph # Knox # Eos # Baso # Neutrophils % (Manual) Lymphocytes % (Manual) Reactive Lymphs % Monocytes % (Manual) Basophils % (Manual) Platelet Estimate Hypochromasia (manual) Poikilocytosis (manual Anisocytosis (manual) Puncture Site Rr pCO2 51 H pO2 86 HCO3 33.4 H ABG pH 7.46 H ABG Total CO2 37.9 H ABG O2 Saturation 98.1 H ABG Base Excess 10.9 H ABG Hemoglobin 11.1 L ABG Carboxyhemoglobin 2.1 H POC ABG HHb (Measured) 1.8 ABG Methemoglobin 1.2 Mono Test Pos A-a O2 Difference 135.0 Respiratory Index 1.6 Hgb O2 Saturation 95.0 Mechanical Rate 16 FiO2 40.0 Tidal Volume 500 PEEP 5 Sodium Potassium Chloride Carbon Dioxide Anion Gap BUN Creatinine Est GFR ( Amer) Est GFR (Non-Af Amer) POC Glucose (mg/dL) 149 H 162 H Random Glucose Calcium Phosphorus Magnesium Total Bilirubin AST ALT Alkaline Phosphatase Total Protein Albumin Globulin Albumin/Globulin Ratio Digoxin 01/16/17 01/16/17 01/16/17 06:30 11:19 11:56 WBC 11.2 H RBC 4.04 L Hgb 11.2 L Hct 35.9 MCV 89.0 MCH 27.8 MCHC 31.2 L RDW 14.3 Plt Count 194 MPV 10.5 Neut % (Auto) 78.5 H Lymph % (Auto) 7.7 L Knox % (Auto) 9.6 Eos % (Auto) 3.3 Baso % (Auto) 0.9 Neut # 8.8 H Lymph # 0.9 L Knox # 1.1 H Eos # 0.4 Baso # 0.1 Neutrophils % (Manual) 82 H Lymphocytes % (Manual) 8 L Reactive Lymphs % 1 H Monocytes % (Manual) 8 Basophils % (Manual) 1 Platelet Estimate Normal Hypochromasia (manual) Slight Poikilocytosis (manual Slight Anisocytosis (manual) Slight Puncture Site pCO2 pO2 HCO3 ABG pH ABG Total CO2 ABG O2 Saturation ABG Base Excess ABG Hemoglobin ABG Carboxyhemoglobin POC ABG HHb (Measured) ABG Methemoglobin Mono Test A-a O2 Difference Respiratory Index Hgb O2 Saturation Mechanical Rate FiO2 Tidal Volume PEEP Sodium 150 H Potassium 4.0 Chloride 109 H Carbon Dioxide 32 H Anion Gap 13 BUN 32 H Creatinine 1.0 Est GFR ( Amer) > 60 Est GFR (Non-Af Amer) > 60 POC Glucose (mg/dL) 136 H Random Glucose 143 H Calcium 9.1 Phosphorus 3.3 Magnesium 3.0 H Total Bilirubin 0.6 AST 23 ALT 27 Alkaline Phosphatase 81 Total Protein 6.7 Albumin 3.2 L Globulin 3.5 Albumin/Globulin Ratio 0.9 L Digoxin 0.9 01/16/17 17:52 WBC RBC Hgb Hct MCV MCH MCHC RDW Plt Count MPV Neut % (Auto) Lymph % (Auto) Knox % (Auto) Eos % (Auto) Baso % (Auto) Neut # Lymph # Knox # Eos # Baso # Neutrophils % (Manual) Lymphocytes % (Manual) Reactive Lymphs % Monocytes % (Manual) Basophils % (Manual) Platelet Estimate Hypochromasia (manual) Poikilocytosis (manual Anisocytosis (manual) Puncture Site pCO2 pO2 HCO3 ABG pH ABG Total CO2 ABG O2 Saturation ABG Base Excess ABG Hemoglobin ABG Carboxyhemoglobin POC ABG HHb (Measured) ABG Methemoglobin Mono Test A-a O2 Difference Respiratory Index Hgb O2 Saturation Mechanical Rate FiO2 Tidal Volume PEEP Sodium Potassium Chloride Carbon Dioxide Anion Gap BUN Creatinine Est GFR ( Amer) Est GFR (Non-Af Amer) POC Glucose (mg/dL) 120 H Random Glucose Calcium Phosphorus Magnesium Total Bilirubin AST ALT Alkaline Phosphatase Total Protein Albumin Globulin Albumin/Globulin Ratio Digoxin Attending/Attestation - Attestation I have personally seen and examined this patient.: Yes I have fully participated in the care of the patient.: Yes I have reviewed all pertinent clinical information: Yes Notes (Text): 01/16/17 Today: , January 16, 2017 The Patient was seen and examined at the bedside, Medical records reviewed, all clinical/lab/hemodynamic/radiographic data were reviewed and management issues were discussed and formulated, Events reviewed Pain issues, skin care, head of the bed elevation, glycemic control were addressed. Agree with above treatment plans as transcribed in Dr. Ng note
[2017-01-16] MEDS ORDERED: Cefepime IV 1 gm in Dextrose 50 ML IVPB SCH (17:00)
--- NOTE | 2017-01-16 17:17 | CP.PCM.PN ---
Subjective - Date & Time of Evaluation Date of Evaluation: 01/16/17 Time of Evaluation: 14:00 - Subjective Subjective: clinically same Objective - Vital Signs/Intake and Output Vital Signs (last 24 hours): Temp Pulse Resp BP Pulse Ox 99 F 80 26 H 161/96 H 100 01/16/17 12:00 01/16/17 13:06 01/16/17 13:06 01/16/17 13:06 01/16/17 13:06 Intake and Output: 01/16/17 01/16/17 06:59 18:59 Intake Total 834.9 331.95 Output Total 550 375 Balance 284.9 -43.05 - Medications Medications: Current Medications Acetaminophen (Tylenol 650mg/20.3ml Solution Ud) 650 mg PO Q6 PRN PRN Reason: Fever >100.4 F Last Admin: 01/12/17 16:20 Dose: 650 mg Albuterol/Ipratropium (Duoneb 3 Mg/0.5 Mg (3 Ml) Ud) 3 ml INH RQ6 [facility] Last Admin: 01/16/17 13:40 Dose: 3 ml Aspirin (Aspirin Chewable) 81 mg PO DAILY [facility] Last Admin: 01/16/17 11:08 Dose: 81 mg Digoxin (Lanoxin) 0.1 mg IVP DAILY@1800 [facility] Last Admin: 01/15/17 16:59 Dose: 0.1 mg Dexmedetomidine HCl 200 mcg/ (Sodium Chloride) 50 mls @ 4.71 mls/hr IVPB TITR PRN; Protocol; 0.2 MCG/KG/HR PRN Reason: Sedation Last Admin: 01/16/17 09:00 Dose: 14.15 mls/hr Azithromycin 500 mg/ Sodium (Chloride) 250 mls @ 250 mls/hr IVPB DAILY@1100 [facility] Last Admin: 01/16/17 11:08 Dose: 250 mls/hr Cefepime HCl (Maxipime Iv 1 Gm Premix) 50 mls @ 100 mls/hr IVPB Q8H [facility] Insulin Human Regular (Novolin R) 0 unit SC Q6H [facility] PRN Reason: Protocol Last Admin: 01/16/17 14:19 Dose: Not Given Losartan Potassium (Cozaar) 50 mg PO DAILY [facility] Metoprolol Tartrate (Lopressor) 25 mg PO BID [facility] Pantoprazole Sodium (Protonix Inj) 40 mg IVP DAILY [facility] Last Admin: 01/16/17 11:08 Dose: 40 mg Rosuvastatin Calcium (Crestor) 10 mg PO HS [facility] Last Admin: 01/15/17 20:55 Dose: 10 mg - Labs Labs: 01/16/17 06:30 01/16/17 06:30 PT 12.3 SECONDS (9.7-12.2) H 01/09/17 09:29 INR 1.1 01/09/17 09:29 APTT 31 SECONDS (21-34) 01/09/17 09:29 - Constitutional Appears: Well - Head Exam Head Exam: ATRAUMATIC, NORMAL INSPECTION, NORMOCEPHALIC - Eye Exam Eye Exam: EOMI, Normal appearance, PERRL Pupil Exam: NORMAL ACCOMODATION, PERRL - ENT Exam ENT Exam: Mucous Membranes Moist, Normal Exam - Neck Exam Neck Exam: Full ROM, Normal Inspection. absent: Lymphadenopathy - Respiratory Exam Respiratory Exam: Decreased Breath Sounds - Cardiovascular Exam Cardiovascular Exam: REGULAR RHYTHM, +S1, +S2 - GI/Abdominal Exam GI & Abdominal Exam: Soft, Diminished Bowel Sounds - Rectal Exam Rectal Exam: Deferred Assessment and Plan (1) Atrial fibrillation Status: Acute (2) Atrial fibrillation with slow ventricular response Status: Acute (3) Bradycardia Status: Acute (4) CHF (congestive heart failure) Status: Acute (5) COPD (chronic obstructive pulmonary disease) Status: Acute (6) COPD exacerbation Status: Acute (7) Epistaxis Status: Acute (8) Epistaxis Status: Acute (9) Hypertriglyceridemia Status: Acute (10) Intraparenchymal hemorrhage of brain Status: Acute - Assessment and Plan (Free Text) Plan: pt. Bp was elevated overnight Pt started on Lopressor and Cozaar by overnight fur buyer. Precedex was increased f/u DR. Ray continue meds as ordered
[2017-01-16] MEDS: Digoxin 500 mcg/2ml (0.5 mg/2ml) Inj IVP SCH (18:30)
[2017-01-16] MEDS ORDERED: Labetalol 25mg/5ml Syringe IV PRN (20:17)
[2017-01-16] MEDS: Cefepime IV 1 gm in Dextrose 50 ML IVPB SCH (21:21)
[2017-01-17] MEDS: (Novolin R) Insulin Human Regular 100 units/ml vial SC SCH ×3 (00:23→17:14)
[2017-01-17] MEDS: Albuterol-Ipratrop 3 mg / 0.5 (3 ml) UD INH SCH ×3 (01:28→13:21)
[2017-01-17] MEDS: Dexmedetomidine Hydrochloride 200 MCG in Sodium Chloride 0.9% 48 ML IVPB PRN ×3 (03:49→16:00)
[2017-01-17] MEDS: Cefepime IV 1 gm in Dextrose 50 ML IVPB SCH ×2 (04:41→13:00)
[2017-01-17 05:41] LABS: ABG ALLEN TEST POS; ABG MECHANICAL RATE 16; ATERIAL BLOOD GAS PEEP 5; DRAW SITE RR
[2017-01-17 06:11] LABS: BASO # 0.1 K/uL (0.0-0.2); EOS # 0.5 K/uL (0.0-0.7); EOS % 4.3 % (0.0-4.0); HEMATOCRIT 35.7 % (35.0-51.0); LYMPH # 0.8 K/uL (1.0-4.3); LYMPH % 7.1 % (20.0-40.0); MEAN CELL VOLUME 89.4 fL (80.0-94.0); MEAN CORPUSCULAR HEMOGLOBIN 28.1 pg (27.0-31.0); MEAN CORPUSCULAR HGB CONC 31.4 g/dL (33.0-37.0); MONO # 1.2 K/uL (0.0-0.8); MONO % 10.4 % (0.0-10.0); PLATELET COUNT 209 K/uL (130-400); RED CELL DISTRIBUTION WIDTH 14.5 % (11.5-14.5); WHITE BLOOD COUNT 11.3 K/uL (4.8-10.8)
[2017-01-17 06:31] LABS: CHLORIDE 108 mmol/L (98-107)
[2017-01-17 06:32] LABS: POTASSIUM 3.7 mmol/L (3.6-5.2); SODIUM 149 mmol/L (132-148)
[2017-01-17 06:34] LABS: ALB/GLOB RATIO 0.9 (1.0-2.1); ALKALINE PHOSPHATASE 81 U/L (38-126); ALT/SGPT 31 U/L (21-72); AST/SGOT 23 U/L (17-59); BILIRUBIN,TOTAL 0.9 mg/dL (0.2-1.3); BLOOD UREA NITROGEN 35 mg/dL (9-20); CARBON DIOXIDE 33 mmol/L (22-30); GFR AFRICAN-AMERICAN > 60; GLUCOSE,RANDOM 141 mg/dL (75-110); PHOSPHOROUS 3.1 mg/dL (2.5-4.5); TOTAL PROTEIN 6.4 g/dL (6.3-8.3)
[2017-01-17 06:35] LABS: CALCIUM 8.8 mg/dl (8.6-10.4); MAGNESIUM 2.9 mg/dL (1.6-2.3)
--- NOTE | 2017-01-17 08:42 | RAD ---
HISTORY: intubated COMPARISON: 01/16/2017 FINDINGS: LUNGS: Lines and tubes in stable position. Prominent consolidative airspace opacification within the right mid and lower lung zone with associated pleural effusion. Question small left pleural effusion with left basilar opacification. Moderate venous congestion. Biapical pleural thickening with upper lobe granulomatous changes. . PLEURA: As above. CARDIOVASCULAR: Cardiomegaly. Calcification at the aortic knob. OSSEOUS STRUCTURES: No significant abnormalities. VISUALIZED UPPER ABDOMEN: Normal. OTHER FINDINGS: None. IMPRESSION: Lines and tubes in stable position. Prominent consolidative airspace opacification within the right mid and lower lung zone with associated pleural effusion. Question small left pleural effusion with left basilar opacification. Moderate venous congestion. Biapical pleural thickening with upper lobe granulomatous changes. .
[2017-01-17 08:45] LABS: BASOPHIL 2 % (0-2); EOSINOPHIL 5 % (0-4); MYELOCYTE 1 % (0-0); NEUTROPHIL 81 % (50-75); REACTIVE LYMPHOCYTES 1 % (0-0); TOTAL CELLS COUNTED 100
[2017-01-17] MEDS: Azithromycin 500 MG in Sodium Chloride 0.9% 250 ML IVPB SCH (10:12)
[2017-01-17 17:10] VITALS: PULSE 70; O2SAT 100
--- NOTE | 2017-01-17 18:16 | CP.CCUPN ---
<Damaso Ng - Last Filed: 01/17/17 18:13> CCU Subjective - Physician Review Subjective (Free Text): 01/17/17 18:13 Pt seen and examined at bedside. Nursing reports episodes of hypertension overnight. Pt started on Labetalol by overnight pay per click strategist with good response. The Precedex was titrated down overnight. Pt tolerated CPAP trial yesterday for 8 hours. Will look to improve upon that today. Attending provider, DR. Bhupinder Duffy , was able to talk to pt in [place] language and pt followed commands appropriately. Pt marked for discharge to [facility] facility today. He remained intubated at time of exam and no ROS could be obtained. Critical Care Time Spent (in minutes): 30 CCU Objective - Vital Signs / Intake & Output Vital Signs (Last 4 hours): Vital Signs Pulse Resp BP Pulse Ox 01/17/17 17:17 164/103 H 01/17/17 17:06 70 28 H 164/103 H 100 01/17/17 17:00 74 25 H 100 01/17/17 16:06 75 28 H 171/104 H 100 01/17/17 16:00 78 24 100 01/17/17 15:29 76 31 H 100 01/17/17 15:06 79 31 H 161/83 H 99 01/17/17 15:00 79 24 98 Intake and Output (Last 8hrs): Intake & Output 01/17/17 01/17/17 01/17/17 06:59 14:59 22:59 Intake Total 482.8 423.5 40 Output Total 450 395 70 Balance 32.8 28.5 -30 Weight 197 lb Intake: Intake, IV Amount 162.8 103.5 Left Forearm 50 right forearm 112.8 103.5 Tube Feeding 320 320 40 Output: Urine 450 395 70 Urethral (Sanchez) 450 395 70 - Physical Exam Physical Exam Limitations: Positive for: Altered Mental Status Head: Positive for: Atraumatic, Normocephalic Extroacular Muscles: Positive for: EOMI Conjunctiva: Positive for: Injected Mouth: Positive for: Dry Respiratory/Chest: Positive for: Decreased Breath Sounds (especially on right side base), Other (Pt ventilated and sedated). Negative for: Accessory Muscle Use Cardiovascular: Positive for: Normal S1, S2, Irregular Rhythm Abdomen: Positive for: Normal Bowel Sounds Genitourinary Male: Positive for: Other (sanchez catheter in place) Upper Extremity: Positive for: Edema (rt hand remains swollen) Lower Extremity: Positive for: Edema (1+ pitting edema), NORMAL PULSES Neurological: Positive for: Other. Negative for: CN II-XII Intact (Pt sedated) , Speech Normal Skin: Positive for: Warm, Dry Psychiatric: Negative for: Alert, Oriented x 3 - Medications Active Medications: Active Medications Generic Name Dose Route Start Last Admin Trade Name Freq PRN Reason Stop Dose Admin Acetaminophen 650 mg 01/10/17 23:50 01/12/17 16:20 Tylenol 650mg/20.3ml Solution Ud PO 650 mg Q6 PRN Administration Fever >100.4 F Albuterol/Ipratropium 3 ml 01/12/17 14:00 01/17/17 13:21 Duoneb 3 Mg/0.5 Mg (3 Ml) Ud INH 3 ml RQ6 HERMILO Administration Aspirin 81 mg 01/12/17 10:00 01/17/17 10:11 Aspirin Chewable PO 81 mg DAILY HERMILO Administration Digoxin 0.1 mg 01/11/17 18:00 01/16/17 18:30 Lanoxin IVP 0.1 mg DAILY@1800 HERMILO Administration Dexmedetomidine HCl 200 mcg/ 50 mls @ 4.71 mls/hr 01/13/17 10:16 01/17/17 16:00 Sodium Chloride IVPB 23.6 mls/hr TITR PRN Administration Sedation Protocol 0.2 MCG/KG/HR Azithromycin 500 mg/ Sodium 250 mls @ 250 mls/hr 01/14/17 11:15 01/17/17 10:12 Chloride IVPB 250 mls/hr DAILY@1100 HERMILO Administration Cefepime HCl 50 mls @ 100 mls/hr 01/16/17 21:00 01/17/17 04:41 Maxipime Iv 1 Gm Premix IVPB 100 mls/hr Q8H HERMILO Administration Insulin Human Regular 0 unit 01/09/17 18:00 01/17/17 17:14 Novolin R SC Not Given Q6H HERMILO Protocol Labetalol HCl 10 mg 01/16/17 20:17 01/16/17 20:26 Trandate IV 10 mg Q4H PRN Administration for BPS more than 170 Losartan Potassium 50 mg 01/16/17 10:33 01/17/17 10:11 Cozaar PO 50 mg DAILY HERMILO Administration Metoprolol Tartrate 25 mg 01/16/17 10:30 01/17/17 17:17 Lopressor PO 25 mg BID HERMILO Administration Pantoprazole Sodium 40 mg 01/09/17 12:15 01/17/17 10:11 Protonix Inj IVP 40 mg DAILY HERMILO Administration Rosuvastatin Calcium 10 mg 01/10/17 22:00 01/16/17 21:21 Crestor PO 10 mg HS HERMILO Administration - Patient Studies Lab Studies: Lab Studies 01/17/17 01/17/17 01/17/17 Range/Units 17:52 11:26 06:05 WBC (4.8-10.8) K/uL RBC (4.40-5.90) Mil/uL Hgb (12.0-18.0) g/dL Hct (35.0-51.0) % MCV (80.0-94.0) fL MCH (27.0-31.0) pg MCHC (33.0-37.0) g/dL RDW (11.5-14.5) % Plt Count (130-400) K/uL MPV (7.2-11.7) fL Neut % (Auto) (50.0-75.0) % Lymph % (Auto) (20.0-40.0) % Foster % (Auto) (0.0-10.0) % Eos % (Auto) (0.0-4.0) % Baso % (Auto) (0.0-2.0) % Neut # (1.8-7.0) K/uL Lymph # (1.0-4.3) K/uL Foster # (0.0-0.8) K/uL Eos # (0.0-0.7) K/uL Baso # (0.0-0.2) K/uL Neutrophils % (Manual) (50-75) % Lymphocytes % (Manual) (20-40) % Reactive Lymphs % (0-0) % Monocytes % (Manual) (0-10) % Eosinophils % (Manual) (0-4) % Basophils % (Manual) (0-2) % Myelocytes % (0-0) % Platelet Estimate (NORMAL) Hypochromasia (manual) Poikilocytosis (manual Anisocytosis (manual) Macrocytosis (manual) Puncture Site pCO2 (35-45) mm/Hg pO2 (80-100) mm/Hg HCO3 (21-28) mmol/L ABG pH (7.35-7.45) ABG Total CO2 (22-28) mmol/L ABG O2 Saturation (95-98) % ABG Base Excess (-2.0-3.0) mmol/L Mono Test ABG Potassium (3.6-5.2) mmol/L A-a O2 Difference mm/Hg Respiratory Index Glucose (75-110) mg/dl Lactate (0.7-2.1) mmol/L Mechanical Rate FiO2 % Tidal Volume PEEP Sodium 149 H (132-148) mmol/L Potassium 3.7 (3.6-5.2) mmol/L Chloride 108 H (98-107) mmol/L Carbon Dioxide 33 H (22-30) mmol/L Anion Gap 12 (10-20) BUN 35 H (9-20) mg/dL Creatinine 0.9 (0.8-1.5) MG/DL Est GFR ( Amer) > 60 Est GFR (Non-Af Amer) > 60 POC Glucose (mg/dL) 142 H 148 H (65-110) mg/dL Random Glucose 141 H (75-110) mg/dL Calcium 8.8 (8.6-10.4) mg/dl Phosphorus 3.1 (2.5-4.5) mg/dL Magnesium 2.9 H (1.6-2.3) mg/dL Total Bilirubin 0.9 (0.2-1.3) mg/dL AST 23 (17-59) U/L ALT 31 (21-72) U/L Alkaline Phosphatase 81 (38-126) U/L Total Protein 6.4 (6.3-8.3) g/dL Albumin 3.0 L (3.5-5.0) g/dL Globulin 3.4 (2.2-3.9) gm/dL Albumin/Globulin Ratio 0.9 L (1.0-2.1) Arterial Blood Potassium (3.6-5.2) mmol/L 01/17/17 01/17/17 01/17/17 Range/Units 06:00 05:35 05:33 WBC 11.3 H (4.8-10.8) K/uL RBC 3.99 L (4.40-5.90) Mil/uL Hgb 11.2 L (12.0-18.0) g/dL Hct 35.7 (35.0-51.0) % MCV 89.4 (80.0-94.0) fL MCH 28.1 (27.0-31.0) pg MCHC 31.4 L (33.0-37.0) g/dL RDW 14.5 (11.5-14.5) % Plt Count 209 (130-400) K/uL MPV 11.0 (7.2-11.7) fL Neut % (Auto) 77.2 H (50.0-75.0) % Lymph % (Auto) 7.1 L (20.0-40.0) % Foster % (Auto) 10.4 H (0.0-10.0) % Eos % (Auto) 4.3 H (0.0-4.0) % Baso % (Auto) 1.0 (0.0-2.0) % Neut # 8.7 H (1.8-7.0) K/uL Lymph # 0.8 L (1.0-4.3) K/uL Foster # 1.2 H (0.0-0.8) K/uL Eos # 0.5 (0.0-0.7) K/uL Baso # 0.1 (0.0-0.2) K/uL Neutrophils % (Manual) 81 H (50-75) % Lymphocytes % (Manual) 6 L (20-40) % Reactive Lymphs % 1 H (0-0) % Monocytes % (Manual) 4 (0-10) % Eosinophils % (Manual) 5 H (0-4) % Basophils % (Manual) 2 (0-2) % Myelocytes % 1 H (0-0) % Platelet Estimate Normal (NORMAL) Hypochromasia (manual) Slight Poikilocytosis (manual Slight Anisocytosis (manual) Slight Macrocytosis (manual) Slight Puncture Site Rr pCO2 50 H (35-45) mm/Hg pO2 78 L (80-100) mm/Hg HCO3 34.1 H (21-28) mmol/L ABG pH 7.48 H (7.35-7.45) ABG Total CO2 38.7 H (22-28) mmol/L ABG O2 Saturation 97.7 (95-98) % ABG Base Excess 11.8 H (-2.0-3.0) mmol/L Mono Test Pos ABG Potassium 3.7 (3.6-5.2) mmol/L A-a O2 Difference 145.0 mm/Hg Respiratory Index 1.9 Glucose 145 H (75-110) mg/dl Lactate 0.7 (0.7-2.1) mmol/L Mechanical Rate 16 FiO2 40.0 % Tidal Volume 500 PEEP 5 Sodium 152.0 H (132-148) mmol/L Potassium (3.6-5.2) mmol/L Chloride 119.0 H (98-107) mmol/L Carbon Dioxide (22-30) mmol/L Anion Gap (10-20) BUN (9-20) mg/dL Creatinine (0.8-1.5) MG/DL Est GFR ( Amer) Est GFR (Non-Af Amer) POC Glucose (mg/dL) 156 H (65-110) mg/dL Random Glucose (75-110) mg/dL Calcium (8.6-10.4) mg/dl Phosphorus (2.5-4.5) mg/dL Magnesium (1.6-2.3) mg/dL Total Bilirubin (0.2-1.3) mg/dL AST (17-59) U/L ALT (21-72) U/L Alkaline Phosphatase (38-126) U/L Total Protein (6.3-8.3) g/dL Albumin (3.5-5.0) g/dL Globulin (2.2-3.9) gm/dL Albumin/Globulin Ratio (1.0-2.1) Arterial Blood Potassium 3.7 (3.6-5.2) mmol/L 01/17/17 Range/Units 00:02 WBC (4.8-10.8) K/uL RBC (4.40-5.90) Mil/uL Hgb (12.0-18.0) g/dL Hct (35.0-51.0) % MCV (80.0-94.0) fL MCH (27.0-31.0) pg MCHC (33.0-37.0) g/dL RDW (11.5-14.5) % Plt Count (130-400) K/uL MPV (7.2-11.7) fL Neut % (Auto) (50.0-75.0) % Lymph % (Auto) (20.0-40.0) % Foster % (Auto) (0.0-10.0) % Eos % (Auto) (0.0-4.0) % Baso % (Auto) (0.0-2.0) % Neut # (1.8-7.0) K/uL Lymph # (1.0-4.3) K/uL Foster # (0.0-0.8) K/uL Eos # (0.0-0.7) K/uL Baso # (0.0-0.2) K/uL Neutrophils % (Manual) (50-75) % Lymphocytes % (Manual) (20-40) % Reactive Lymphs % (0-0) % Monocytes % (Manual) (0-10) % Eosinophils % (Manual) (0-4) % Basophils % (Manual) (0-2) % Myelocytes % (0-0) % Platelet Estimate (NORMAL) Hypochromasia (manual) Poikilocytosis (manual Anisocytosis (manual) Macrocytosis (manual) Puncture Site pCO2 (35-45) mm/Hg pO2 (80-100) mm/Hg HCO3 (21-28) mmol/L ABG pH (7.35-7.45) ABG Total CO2 (22-28) mmol/L ABG O2 Saturation (95-98) % ABG Base Excess (-2.0-3.0) mmol/L Mono Test ABG Potassium (3.6-5.2) mmol/L A-a O2 Difference mm/Hg Respiratory Index Glucose (75-110) mg/dl Lactate (0.7-2.1) mmol/L Mechanical Rate FiO2 % Tidal Volume PEEP Sodium (132-148) mmol/L Potassium (3.6-5.2) mmol/L Chloride (98-107) mmol/L Carbon Dioxide (22-30) mmol/L Anion Gap (10-20) BUN (9-20) mg/dL Creatinine (0.8-1.5) MG/DL Est GFR ( Amer) Est GFR (Non-Af Amer) POC Glucose (mg/dL) 183 H (65-110) mg/dL Random Glucose (75-110) mg/dL Calcium (8.6-10.4) mg/dl Phosphorus (2.5-4.5) mg/dL Magnesium (1.6-2.3) mg/dL Total Bilirubin (0.2-1.3) mg/dL AST (17-59) U/L ALT (21-72) U/L Alkaline Phosphatase (38-126) U/L Total Protein (6.3-8.3) g/dL Albumin (3.5-5.0) g/dL Globulin (2.2-3.9) gm/dL Albumin/Globulin Ratio (1.0-2.1) Arterial Blood Potassium (3.6-5.2) mmol/L Laboratory Results - last 24 hr 01/17/17 01/17/17 01/17/17 00:02 05:33 05:35 WBC RBC Hgb Hct MCV MCH MCHC RDW Plt Count MPV Neut % (Auto) Lymph % (Auto) Foster % (Auto) Eos % (Auto) Baso % (Auto) Neut # Lymph # Foster # Eos # Baso # Neutrophils % (Manual) Lymphocytes % (Manual) Reactive Lymphs % Monocytes % (Manual) Eosinophils % (Manual) Basophils % (Manual) Myelocytes % Platelet Estimate Hypochromasia (manual) Poikilocytosis (manual Anisocytosis (manual) Macrocytosis (manual) Puncture Site Rr pCO2 50 H pO2 78 L HCO3 34.1 H ABG pH 7.48 H ABG Total CO2 38.7 H ABG O2 Saturation 97.7 ABG Base Excess 11.8 H Mono Test Pos ABG Potassium 3.7 A-a O2 Difference 145.0 Respiratory Index 1.9 Sodium 152.0 H Chloride 119.0 H Glucose 145 H Lactate 0.7 Mechanical Rate 16 FiO2 40.0 Tidal Volume 500 PEEP 5 Potassium Carbon Dioxide Anion Gap BUN Creatinine Est GFR ( Amer) Est GFR (Non-Af Amer) POC Glucose (mg/dL) 183 H 156 H Random Glucose Calcium Phosphorus Magnesium Total Bilirubin AST ALT Alkaline Phosphatase Total Protein Albumin Globulin Albumin/Globulin Ratio Arterial Blood Potassium 3.7 01/17/17 01/17/17 01/17/17 06:00 06:05 11:26 WBC 11.3 H RBC 3.99 L Hgb 11.2 L Hct 35.7 MCV 89.4 MCH 28.1 MCHC 31.4 L RDW 14.5 Plt Count 209 MPV 11.0 Neut % (Auto) 77.2 H Lymph % (Auto) 7.1 L Foster % (Auto) 10.4 H Eos % (Auto) 4.3 H Baso % (Auto) 1.0 Neut # 8.7 H Lymph # 0.8 L Foster # 1.2 H Eos # 0.5 Baso # 0.1 Neutrophils % (Manual) 81 H Lymphocytes % (Manual) 6 L Reactive Lymphs % 1 H Monocytes % (Manual) 4 Eosinophils % (Manual) 5 H Basophils % (Manual) 2 Myelocytes % 1 H Platelet Estimate Normal Hypochromasia (manual) Slight Poikilocytosis (manual Slight Anisocytosis (manual) Slight Macrocytosis (manual) Slight Puncture Site pCO2 pO2 HCO3 ABG pH ABG Total CO2 ABG O2 Saturation ABG Base Excess Mono Test ABG Potassium A-a O2 Difference Respiratory Index Sodium 149 H Chloride 108 H Glucose Lactate Mechanical Rate FiO2 Tidal Volume PEEP Potassium 3.7 Carbon Dioxide 33 H Anion Gap 12 BUN 35 H Creatinine 0.9 Est GFR ( Amer) > 60 Est GFR (Non-Af Amer) > 60 POC Glucose (mg/dL) 148 H Random Glucose 141 H Calcium 8.8 Phosphorus 3.1 Magnesium 2.9 H Total Bilirubin 0.9 AST 23 ALT 31 Alkaline Phosphatase 81 Total Protein 6.4 Albumin 3.0 L Globulin 3.4 Albumin/Globulin Ratio 0.9 L Arterial Blood Potassium 01/17/17 17:52 WBC RBC Hgb Hct MCV MCH MCHC RDW Plt Count MPV Neut % (Auto) Lymph % (Auto) Foster % (Auto) Eos % (Auto) Baso % (Auto) Neut # Lymph # Foster # Eos # Baso # Neutrophils % (Manual) Lymphocytes % (Manual) Reactive Lymphs % Monocytes % (Manual) Eosinophils % (Manual) Basophils % (Manual) Myelocytes % Platelet Estimate Hypochromasia (manual) Poikilocytosis (manual Anisocytosis (manual) Macrocytosis (manual) Puncture Site pCO2 pO2 HCO3 ABG pH ABG Total CO2 ABG O2 Saturation ABG Base Excess Mono Test ABG Potassium A-a O2 Difference Respiratory Index Sodium Chloride Glucose Lactate Mechanical Rate FiO2 Tidal Volume PEEP Potassium Carbon Dioxide Anion Gap BUN Creatinine Est GFR ( Amer) Est GFR (Non-Af Amer) POC Glucose (mg/dL) 142 H Random Glucose Calcium Phosphorus Magnesium Total Bilirubin AST ALT Alkaline Phosphatase Total Protein Albumin Globulin Albumin/Globulin Ratio Arterial Blood Potassium Fingerstick Blood Sugar Results: 156 Review of Systems - Review of Systems Systems not reviewed;Unavailable: Intubated Assessment/Plan - Assessment and Plan (Free Text) Assessment: 76 year old male of descent, with PMHx of afib (on xarelto), presenting with new onset weakness and respiratory distress. Pt intubated and sedated. CT scan shows left basal intraparenchymal bleed. Pleural effusion on right side. Pt clinical status improving, marked for LTACH transfer today. Plan: Neuro: Pt intubated, daily sedation vacation. - Precedex drip decreased CT Head (01/09/17): Left intraparenchymal hemorrhage without midline shift (see full report) - repeat CT (01/09/17): stable hemorrhage (see full report) - repeat 24hr CT (01/10/17): no new hemorrhage. Redemonstrated large left BG hemorrhage surrounded by edema and/or necrotic brain tissue. Mild mass effect. ( see full report). Decreased movement of right side; minimal movement of RUE Dr Segura, Neurology, consulted: help appreciated - Hold Home med Xarelto 20mg Daily, until 6 weeks after bleed stabilized Dr. Palmer, Neurosurgery, consulted: help appreciated - No intervention at this time Elevated temp (100.3) on 01/10 - Sputum Cx (01/10/17): Normal amando - Urine Cx (01/10/17): Enterococcus Faecalis - Blood cx (01/10/17): No growth for 5 days x 2 - MRSA (01/09/17): Not detected Endo: Hgb A1c: 6.5 Accuchecks ACHS ISS - low CV: Hx of atrial fibrillation - EKG on presentation: Afib w. RVR (rate 108). Left axis deviation. - Hold Home med Xarelto 20mg Daily, until 6 weeks after bleed stabilized - Digoxin level (01/10/17): < 0.4; Random level (01/16/17) 0.9 - Loaded, then restarted home Digoxin 0.1mg IVP CAD - Crestor 10mg PO HS - ASA 81mg PO Daily HTN Increased pressure overnight, started following meds with holding parameters: - Cozaar 50mg PO Daily - Lopressor 25mg PO BID Pulm: Continue CPAP trial, attempted weaning from MV Pleural effusions: CXR (01/17/17) ETT and NGT in correct position. Prominent consolidative airspace opacity within right mid and lower lung zone with associated pleural effusion. Questionable small left pleural effusion with left basilar opacification. Moderate venous congestion. Biapical pleural thickening with upper lobe granulomatous changes. (see full report) CT Chest/Abd/Pelvis (01/14/17): Cardiomegaly. Right greater than left small bilateral pleural effusions with consolidation. Scattered emphysematous changes. Pulmonary venous congestion. Gallbladder wall thickening, pericholecystic edema. Absent Right kidney. Bilateral adrenal gland hypertrophy. Tiny fat containing umbilical hernia. (see full report) - Cefepime 1gm IV Q8H (Day 7) - Azithromycin 500mg IV Daily (Day 4) Duonebs Q6H HERMILO GI: Started tubefeeding: diabetisource - At Goal: 45 ml/hr CT Chest/Abd/Pelvis (01/14/17): Cardiomegaly. Right greater than left small bilateral pleural effusions with consolidation. Scattered emphysematous changes. Pulmonary venous congestion. Gallbladder wall thickening, pericholecystic edema. Absent Right kidney. Bilateral adrenal gland hypertrophy. Tiny fat containing umbilical hernia. (see full report) LFTs WNL : BUN/Cr WNL Hypernatremia - 149 on AM labs Sanchez catheter in place Monitor I/Os ID: Leukocytosis: 11.3, slightly elevated but stable - left shift improving, with no bands - continue Cefepime 1gm Q8H (day 7) for possible VAP Urine Cx (01/10/17): Enterococcus Faecalis - continue Azithromycin 500mg IV Daily (Day 4) Hem/Onc: On home Xarelto - Kcentra completed for stabilization of ICH. - can restart Xarelto or alternative mcc stroke prophylaxis at least 6 weeks from bleed stabilization Mskltl: PT/OT eval Prophylaxis: DVT: SCDs VTE: contraindicated due to active BG bleed GI: Protonix IV <Juan Ambrose - Last Filed: 01/18/17 23:03> CCU Objective - Patient Studies Lab Studies: Microbiology Studies 01/17/17 20:30 MRSA Culture - Final Nose MRSA NOT DETECTED Attending/Attestation - Attestation I have personally seen and examined this patient.: Yes I have fully participated in the care of the patient.: Yes I have reviewed all pertinent clinical information: Yes Notes (Text): Today: Friday, January 17, 2017 The Patient was seen and examined at the bedside, Medical records reviewed, all clinical/lab/hemodynamic/radiographic data were reviewed and management issues were discussed and formulated, Events reviewed Pain issues, skin care, head of the bed elevation, glycemic control were addressed. Agree with above treatment plans as transcribed in Dr. Ng note
--- NOTE | 2017-01-17 18:26 | CP.PCM.PN ---
Subjective - Date & Time of Evaluation Date of Evaluation: 01/17/17 Time of Evaluation: 15:00 - Subjective Subjective: pt. is awake and responsive Objective - Vital Signs/Intake and Output Vital Signs (last 24 hours): Temp Pulse Resp BP Pulse Ox 98.4 F 70 28 H 164/103 H 100 01/17/17 04:00 01/17/17 17:06 01/17/17 17:06 01/17/17 17:17 01/17/17 17:06 Intake and Output: 01/17/17 01/17/17 06:59 18:59 Intake Total 739.9 463.5 Output Total 700 465 Balance 39.9 -1.5 - Medications Medications: Current Medications Acetaminophen (Tylenol 650mg/20.3ml Solution Ud) 650 mg PO Q6 PRN PRN Reason: Fever >100.4 F Last Admin: 01/12/17 16:20 Dose: 650 mg Albuterol/Ipratropium (Duoneb 3 Mg/0.5 Mg (3 Ml) Ud) 3 ml INH RQ6 [facility] Last Admin: 01/17/17 13:21 Dose: 3 ml Aspirin (Aspirin Chewable) 81 mg PO DAILY [facility] Last Admin: 01/17/17 10:11 Dose: 81 mg Digoxin (Lanoxin) 0.1 mg IVP DAILY@1800 [facility] Last Admin: 01/16/17 18:30 Dose: 0.1 mg Dexmedetomidine HCl 200 mcg/ (Sodium Chloride) 50 mls @ 4.71 mls/hr IVPB TITR PRN; Protocol; 0.2 MCG/KG/HR PRN Reason: Sedation Last Admin: 01/17/17 16:00 Dose: 23.6 mls/hr Azithromycin 500 mg/ Sodium (Chloride) 250 mls @ 250 mls/hr IVPB DAILY@1100 [facility] Last Admin: 01/17/17 10:12 Dose: 250 mls/hr Cefepime HCl (Maxipime Iv 1 Gm Premix) 50 mls @ 100 mls/hr IVPB Q8H [facility] Last Admin: 01/17/17 04:41 Dose: 100 mls/hr Insulin Human Regular (Novolin R) 0 unit SC Q6H HERMILO PRN Reason: Protocol Last Admin: 01/17/17 17:14 Dose: Not Given Labetalol HCl (Trandate) 10 mg IV Q4H PRN PRN Reason: for BPS more than 170 Last Admin: 01/16/17 20:26 Dose: 10 mg Losartan Potassium (Cozaar) 50 mg PO DAILY [facility] Last Admin: 01/17/17 10:11 Dose: 50 mg Metoprolol Tartrate (Lopressor) 25 mg PO BID [facility] Last Admin: 01/17/17 17:17 Dose: 25 mg Pantoprazole Sodium (Protonix Inj) 40 mg IVP DAILY [facility] Last Admin: 01/17/17 10:11 Dose: 40 mg Rosuvastatin Calcium (Crestor) 10 mg PO HS [facility] Last Admin: 01/16/17 21:21 Dose: 10 mg - Labs Labs: 01/17/17 06:00 01/17/17 06:05 PT 12.3 SECONDS (9.7-12.2) H 01/09/17 09:29 INR 1.1 01/09/17 09:29 APTT 31 SECONDS (21-34) 01/09/17 09:29 - Constitutional Appears: Well - Head Exam Head Exam: ATRAUMATIC, NORMAL INSPECTION, NORMOCEPHALIC - Eye Exam Eye Exam: EOMI, Normal appearance, PERRL Pupil Exam: NORMAL ACCOMODATION, PERRL - ENT Exam ENT Exam: Mucous Membranes Moist, Normal Exam - Neck Exam Neck Exam: Full ROM, Normal Inspection. absent: Lymphadenopathy - Respiratory Exam Respiratory Exam: Decreased Breath Sounds - Cardiovascular Exam Cardiovascular Exam: REGULAR RHYTHM, +S1, +S2 - GI/Abdominal Exam GI & Abdominal Exam: Soft, Diminished Bowel Sounds - Rectal Exam Rectal Exam: Deferred Assessment and Plan - Assessment and Plan (Free Text) Plan: pt. is tolerating CPAP well since yesterday Pt marked for discharge to LTACH facility today.
[2017-01-17 18:36] VITALS: BP 167/94; RESP 24
[2017-01-17] MEDS: Digoxin 500 mcg/2ml (0.5 mg/2ml) Inj IVP SCH (18:39)
[2017-01-17 18:40] VITALS: PULSE 79
[2017-01-17 18:45] VITALS: TEMP 98
--- NOTE | 2017-01-17 18:46 | CP.PCM.PN ---
Subjective - Date & Time of Evaluation Date of Evaluation: 01/17/17 Time of Evaluation: 16:00 - Subjective Subjective: Patient seen and examined in the intensive care unit. 76 year old male of [place] descent, with PMHx of afib (on xarelto), presenting with new onset weakness and respiratory distress. Pt intubated and sedated. CT scan shows left basal intraparenchymal bleed. Pleural effusion on right side. Pt clinical status improving, marked for LTACH transfer today. Tolerating CPAP since yesterday. Response to vocal commands by opening eyes Objective - Vital Signs/Intake and Output Vital Signs (last 24 hours): Temp Pulse Resp BP Pulse Ox 98.4 F 70 24 167/94 H 100 01/17/17 04:00 01/17/17 18:06 01/17/17 18:06 01/17/17 18:06 01/17/17 18:06 Intake and Output: 01/17/17 01/17/17 06:59 18:59 Intake Total 739.9 463.5 Output Total 700 465 Balance 39.9 -1.5 - Medications Medications: Current Medications Acetaminophen (Tylenol 650mg/20.3ml Solution Ud) 650 mg PO Q6 PRN PRN Reason: Fever >100.4 F Last Admin: 01/12/17 16:20 Dose: 650 mg Albuterol/Ipratropium (Duoneb 3 Mg/0.5 Mg (3 Ml) Ud) 3 ml INH RQ6 [facility] Last Admin: 01/17/17 13:21 Dose: 3 ml Aspirin (Aspirin Chewable) 81 mg PO DAILY [facility] Last Admin: 01/17/17 10:11 Dose: 81 mg Digoxin (Lanoxin) 0.1 mg IVP DAILY@1800 [facility] Last Admin: 01/17/17 18:39 Dose: 0.1 mg Dexmedetomidine HCl 200 mcg/ (Sodium Chloride) 50 mls @ 4.71 mls/hr IVPB TITR PRN; Protocol; 0.2 MCG/KG/HR PRN Reason: Sedation Last Admin: 01/17/17 16:00 Dose: 23.6 mls/hr Azithromycin 500 mg/ Sodium (Chloride) 250 mls @ 250 mls/hr IVPB DAILY@1100 [facility] Last Admin: 01/17/17 10:12 Dose: 250 mls/hr Cefepime HCl (Maxipime Iv 1 Gm Premix) 50 mls @ 100 mls/hr IVPB Q8H [facility] Last Admin: 01/17/17 13:00 Dose: 100 mls/hr Insulin Human Regular (Novolin R) 0 unit SC Q6H HERMILO PRN Reason: Protocol Last Admin: 01/17/17 17:14 Dose: Not Given Labetalol HCl (Trandate) 10 mg IV Q4H PRN PRN Reason: for BPS more than 170 Last Admin: 01/16/17 20:26 Dose: 10 mg Losartan Potassium (Cozaar) 50 mg PO DAILY [facility] Last Admin: 01/17/17 10:11 Dose: 50 mg Metoprolol Tartrate (Lopressor) 25 mg PO BID [facility] Last Admin: 01/17/17 17:17 Dose: 25 mg Pantoprazole Sodium (Protonix Inj) 40 mg IVP DAILY [facility] Last Admin: 01/17/17 10:11 Dose: 40 mg Rosuvastatin Calcium (Crestor) 10 mg PO HS [facility] Last Admin: 01/16/17 21:21 Dose: 10 mg - Labs Labs: 01/17/17 06:00 01/17/17 06:05 PT 12.3 SECONDS (9.7-12.2) H 01/09/17 09:29 INR 1.1 01/09/17 09:29 APTT 31 SECONDS (21-34) 01/09/17 09:29 - Head Exam Head Exam: ATRAUMATIC, NORMOCEPHALIC - ENT Exam ENT Exam: Mucous Membranes Moist - Neck Exam Neck Exam: Normal Inspection - Respiratory Exam Respiratory Exam: Decreased Breath Sounds - Cardiovascular Exam Cardiovascular Exam: REGULAR RHYTHM - GI/Abdominal Exam GI & Abdominal Exam: Soft, Normal Bowel Sounds - Extremities Exam Extremities Exam: Normal Inspection Assessment and Plan (1) Intraparenchymal hemorrhage of brain Assessment & Plan: Patient remains intubated on ventilatory support, tolerating CPAP since yesterday, awake but does not follow commands awaiting for transfer to LTAC. Extubate when patient is more awake and responsive Continue nebulizer treatment and feeding Status: Acute (2) COPD (chronic obstructive pulmonary disease) Status: Acute (3) Atrial fibrillation Status: Acute
== END 2017-01-17 20:53 | DRG 64 ==
LOC: C.ER 08:40 → C.9I 09:34 → MERGE 09:34
PROVIDERS: ADMIT Internal Medicine Nephrology; ATTEND Internal Medicine Nephrology
PROC: 5A1955Z Respiratory Ventilation, Greater than 96 Consecutive Hours (ICD-10-PCS; principal; 2017-01-09)
PROC: 3E0G76Z Introduction of Nutritional Substance into Upper GI, Via Natural or Artificial Opening (ICD-10-PCS; 2017-01-10)
DX: I61.0 Nontraumatic intracerebral hemorrhage in hemisphere, subcortical (principal); J96.91 Respiratory failure, unspecified with hypoxia; J95.851 Ventilator associated pneumonia; J90 Pleural effusion, not elsewhere classified; J81.1 Chronic pulmonary edema; J44.9 Chronic obstructive pulmonary disease, unspecified; E87.0 Hyperosmolality and hypernatremia; G81.91 Hemiplegia, unspecified affecting right dominant side; D68.32 Hemorrhagic disorder due to extrinsic circulating anticoagulants; E87.70 Fluid overload, unspecified; R47.01 Aphasia; I48.91 Unspecified atrial fibrillation; I10 Essential (primary) hypertension; Z79.01 Long term (current) use of anticoagulants; Z87.891 Personal history of nicotine dependence; Z51.5 Encounter for palliative care; E83.39 Other disorders of phosphorus metabolism; D72.825 Bandemia; I25.10 Atherosclerotic heart disease of native coronary artery without angina pectoris; T45.515A Adverse effect of anticoagulants, initial encounter; Y84.8 Other medical procedures as the cause of abnormal reaction of the patient, or of later complication, without mention of misadventure at the time of the procedure; Y82.9 Unspecified medical devices associated with adverse incidents